=== PATIENT | female | born 1945 | race Caucasian/White ===

== ENCOUNTER 2019-09-15 14:30 | Outpatient (CLI) | payer MEDICARE, MEDICAID, SELFPAY | END 2019-09-15 14:31 | disposition home or self-care (01) | LOC: RT 03-27 15:13 | PROVIDERS: PCP Chiropractor Orthopedic; Visit Provider Internal Medicine Critical Care Medicine | DX: Z01.811 Encounter for preprocedural respiratory examination (principal); I25.10 Atherosclerotic heart disease of native coronary artery without angina pectoris | CPT/HCPCS: 80048; 81001; 85025; 85610; 86850; 86900; 94010; 94060; 94726; 94729 ==

== ENCOUNTER → 2019-09-20 07:00 | Day surgery (SDC) | payer MEDICARE, MEDICAID, SELFPAY ==
[2019-09-15 14:05] VITALS: BMI 34.3
--- NOTE | 2019-09-15 14:37 | ANES.PREANES ---
Pre-Anesthetic Assessment Pre-Anesthetic Assessment: Height/Weight: Height 1.63 m Weight 90.718 kg Preop Diagnosis: CAD Proposed Procedure: Operation Date: 09/20/19 07:00 Proposed Procedures p CABG(Not Applicable) - William Wilson MD Social: Social History: Tobacco and No alcohol Packs per day: 0.5 ppd Exam: Pre-Anes Outpt Exam: alert, oriented x 3, clear to auscultation bilaterally and regular rate & rhythm Airway: Cervical ROM: WNL MP: 3 Dentition: Chipped Additional comments: missing Pulmonary: Pulmonary: COPD CV/HEM: CV/HEM: HTN and VT Comments: EF 40%, NSTEMI : : None reported Hepatic: Hepatic: None reported Metabolic: Metabolic: Hyperlipidemia, Morbid obesity and Thyroid Musc/skel: Musc/skel: RA and None reported Neuropsych: Neuropsych: CVA (CVA 12 years ago ) Anesthetic Plan: ASA status: IV Anesthesia: General Risk of > 500 ml blood loss (7ml/kg in children): Yes, adequate IV access and fluids planned PFSH Anesthesia PFSH: Family History (Updated 09/06/19 @ 14:33 by Sarah Rojas LPN) Mother CAD (coronary artery disease) Hypertension Pulmonary embolism Social History (Updated 09/06/19 @ 14:34 by Sarah Rojas LPN) Smoking and tobacco status: current every day smoker Alcohol intake: never Data Anesthesia Cardiac Studies: No Data to Display
[2019-09-15 14:50] LABS: Basophils % 0.3 %; Eosinophils % 0.5 %; Hematocrit 42.7 % (37.0-47.0); Hemoglobin 13.4 g/dL (11.5-15.3); Lymphocytes # 0.8 10^3/uL (0.8-4.8); Lymphocytes % 9.7 %; Mean Corpuscular HGB Conc 31.4 g/dL (30.0-36.0); Mean Corpuscular Hemoglobin 29.3 pg (28.0-34.0); Mean Corpuscular Volume 93.4 fL (81-99); Mean Platelet Volume 10.7 fL (7.4-10.4); Monocytes # 0.2 10^3/uL (0.2-0.9); Monocytes % 2.8 %; Neutrophils # 6.9 10^3/uL (1.8-7.7); Neutrophils % 86.4 %; Nucleated Red Blood Cells % 0 %; Platelet Count 170 10^3/cmm (130-400); Red Blood Count 4.57 10^6/uL (4.1-5.3); Red Cell Distribution Width 14.2 % (12.1-15.1)
[2019-09-15 14:59] LABS: INR 0.97 (0.8-1.2)
[2019-09-15 15:02] LABS: Anion Gap 16.8 (5-19); Blood Urea Nitrogen 19 mg/dL (8-23); Calcium 9.4 mg/Dl (8.8-10.2); Carbon Dioxide 27 mmol/L (22-29); Chloride 96 mmol/L (98-107); Potassium 3.8 mmol/L (3.5-5.1); Sodium 136 mmol/L (136-145)
[2019-09-15 15:10] LABS: Glucose 527 mg/dL (74-106)
--- NOTE | 2019-09-15 15:49 | SUR.PREOP ---
CRITICAL GLUCOSE OF 527 CALLED TO THIS NURSE FROM THE LAB DURING PATIENT'S PRE-OP FOR CABG ON FRIDAY. DR. JIMÉNEZ NOTIFIED OF CRITICAL LAB AND HE STATED TO GET PATIENT AN APPOINTMENT TOMORROW IF POSSIBLE WITH HER PRIMARY CARE PHYSICIAN TO ADDRESS THE HIGH GLUCOSE AND SURGERY MAY BE DELAYED. THIS NURSE CALLED THE [facility] [address] AND IT WAS VERIFIED THAT PATIENT IS ESTABLISHED AT THAT CLINIC AND WAS SEEN LAST APRIL. PATIENT WAS SET UP WITH AN APPOINTMENT FOR 09/16/2019 AT 2:40 TO ADDRESS THE BLOOD SUGAR, WITH INSTRUCTIONS TO HAVE THE CLINIC FAX PHYSICIAN'S NOTES TO [facility], ATTN: AASHISH/DR. JIMÉNEZ. WRITEEN AND VERBAL INSTRUCTIONS REGARDING THIS WERE GIVEN TO HER DAUGHTER WHO VERBALIZED UNDERSTANDING. AASHISH IN [facility] WAS NOTIFIED OF THE LATEST AND TO BE EXPECTING FAXED RESULTS FROM [facility] TOMORROW.
[2019-09-15 16:01] LABS: Blood Urine 2+ (Negative); Glucose Urine UA 4+ (Normal); Ketones Urine Negative (Negative); Protein Urine Neg (Negative); Urine Appearance Clear (CLEAR); Urine Color Yellow (Yellow); pH Urine 5 (5-7)
[2019-09-15 16:02] LABS: Bilirubin Urine Neg (NEGATIVE); Leukocyte Esterase Urine Negative (Negative); Nitrate Urine Negative (Negative); Urobilinogen Urine Norm (Negative)
== END ==
PROVIDERS: PCP Chiropractor Orthopedic; Visit Provider Thoracic Surgery (Cardiothoracic Vascular Surgery)
DX: I25.10 Atherosclerotic heart disease of native coronary artery without angina pectoris (principal)
CPT/HCPCS: 36415; 80048; 81001; 85025; 85610; 86850; 86900; 94010; 94726; 94729

== ENCOUNTER 2019-10-15 22:12 | Inpatient (IN) | payer MEDICARE, MEDICAID, SELFPAY ==
[2019-10-15 22:13] VITALS: BP 124/78; PULSE 80; RESP 16; TEMP 36.7; O2SAT 97; BMI 34.8
--- NOTE | 2019-10-15 22:13 | ED_ITS ---
Entered by Malaika Hubbard, acting as scribe for HPI - Chest Pain General: Chief Complaint: Chest Pain Stated Complaint: CHEST PAIN Time Seen by Provider: 10/15/19 22:19 Source: patient and EMS Mode of arrival: EMS Limitations: no limitations History of Present Illness: HPI narrative: 73 yo f came to the er by [facility] for chest pain. Onset was today. Pt states that she is supposed to have a CABG soon. Pt states that she is really fatigued and the pain was between her shoulder blades. MD complaint: chest pain Timing of current episode: episodic Onset: during rest Pain location: substernal Severity: mild Associated symptoms: Reports dyspnea and palpitations; Deny abdominal pain, fever(s), nausea or vomiting Review of Systems General: Reports: other (negative unless marked) Const: Denies: fever or chills Eyes: Denies: change in vision or blurry vision ENMT: Denies: nose bleeds, post nasal drip or facial/sinus pain Card: Reports: chest pain, palpitations and edema; Denies: irregular heart rhythm, swelling of feet/ankles, shortness of breath on exertion or shortness of breath when lying down Resp: Reports: shortness of breath; Denies: productive cough or wheezing GI: Denies: abdominal pain, nausea or vomiting : Denies: painful urination or blood in urine Skin/Breast: Denies: rash, itching or redness Neuro: Denies: headache, dizziness or vertigo Psych: Reports: anxiety PFSH ED PFSH: Statuses (acute, chronic, etc) shown below reflect problem list status as previously entered and may not be historically accurate Medical History (Updated 10/16/19 @ 02:32 by Rajendra Will MD) Anxiety (Acute) COPD (chronic obstructive pulmonary disease) (Acute) Coronary artery arteriosclerosis (Acute) CVA (cerebral vascular accident) (Acute) Fracture of right lower extremity (Acute) Hypertension (Acute) Hypothyroid (Acute) Rheumatoid arthritis (Acute) Type 2 diabetes mellitus (Acute) Surgical History (Updated 10/16/19 @ 02:32 by Rajendra Will MD) H/O: hysterectomy (Acute) Family History Mother CAD (coronary artery disease) Hypertension Pulmonary embolism Social History (Updated 10/16/19 @ 02:32 by Rajendra Will MD) Smoking and tobacco status: current every day smoker Alcohol intake: never Substance/Drug Use: never Physical Exam Const: GENERAL APPEARANCE: well developed and anxious (mild) ORIENTATION/CONSCIOUSNESS: Yes oriented to person, Yes oriented to place and Yes oriented to time HENMT: COMMON NORMALS: head/scalp atraumatic and external nose normal HEAD & SCALP: atraumatic FACE & SINUS: normal facial exam NOSE: external nose normal Resp: EFFORT & INSPECTION: Yes audible wheezes Extremity: RIGHT LOWER EXTREMITY: Yes foot & digits (edema +1) LEFT LOWER EXTREMITY: Yes foot & digits Left foot and digits: Yes other (edema +1) Neuro: SENSORIUM/ORIENTATION: Yes oriented to person, Yes oriented to place and Yes oriented to time Course ED course: 73-year-old lady with triple-vessel disease. She has been awaiting better blood sugar control so that she can have her CABG. She experienced significant chest pain onset tonight. In the ambulance, 2 nitroglycerin sublingual tabs took her pain away. She is asymptomatic now. She has been normotensive. Her troponin, however, did elevate significantly at 2 hours. EKG did not change, there are no acute ST changes. Vital Signs: Vital signs: Vital Signs Temperature 98.1 F 10/15/19 22:13 Pulse Rate 72 10/16/19 02:24 Respiratory Rate 14 10/16/19 02:24 Blood Pressure 122/80 10/16/19 02:24 Pulse Oximetry 97 10/16/19 02:24 MDM - Chest Pain Lab Data: Labs: Lab Results 10/15/19 10/15/19 10/15/19 Range/Units 22:54 22:54 22:54 WBC 6.7 (4.0-10.0) 10^3/ uL RBC 4.06 L (4.1-5.3) 10^6/u L Hgb 11.7 (11.5-15.3) g/dL Hct 37.3 (37.0-47.0) % MCV 91.9 (81-99) fL MCH 28.8 (28.0-34.0) pg MCHC 31.4 (30.0-36.0) g/dL RDW 15.0 (12.1-15.1) % Plt Count 154 (130-400) 10^3/c mm MPV 9.6 (7.4-10.4) fL Neut % (Auto) 71.6 % Lymph % (Auto) 17.3 % Garland % (Auto) 6.0 % Eos % (Auto) 4.5 % Baso % (Auto) 0.3 % Neut # (Auto) 4.8 (1.8-7.7) 10^3/u L Lymph # (Auto) 1.2 (0.8-4.8) 10^3/u L Garland # (Auto) 0.4 (0.2-0.9) 10^3/u L Eos # (Auto) 0.3 (0.0-0.8) 10^3/u L Baso # (Auto) 0.0 (0.0-0.1) 10^3/u L Nucleated RBC % (a uto) 0 % Nucleated RBCs # 0.0 /100WBC PT (10.5-13.3) SECO NDS INR (0.8-1.2) APTT (23.9-36.7) SECO NDS Sodium 141 (136-145) mmol/L Potassium 3.7 (3.5-5.1) mmol/L Chloride 105 (98-107) mmol/L Carbon Dioxide 25 (22-29) mmol/L Anion Gap 14.7 (5-19) BUN 15 (8-23) mg/dL Creatinine 0.7 (0.5-0.9) mg/dL Glucose 197 H (65-115) mg/dL Calcium 9.2 (8.5-10.5) mg/dL Total Bilirubin 0.2 (0.15-1.2) mg/dL AST 14 (0-32) U/L ALT 14 (0-33) U/L Alkaline Phosphata se 88 (35-105) IU/L Creatine Kinase 72 (26-192) U/L Troponin T Baselin e 117 H* (0-10) ng/mL Troponin T 120 Min ewiiaapaayp (0-10) ng/mL Delta Troponin T (0-10) ABS# NT-Pro-B Natriuret Pep 5695 H (0-125) pg/mL Total Protein 5.5 L (6.6-8.7) g/dL Albumin 3.3 L (3.5-5.2) g/dL Globulin 2.2 (1.3-4.6) g/dL 10/15/19 10/16/19 Range/Units 22:54 00:50 WBC (4.0-10.0) 10^3/ uL RBC (4.1-5.3) 10^6/u L Hgb (11.5-15.3) g/dL Hct (37.0-47.0) % MCV (81-99) fL MCH (28.0-34.0) pg MCHC (30.0-36.0) g/dL RDW (12.1-15.1) % Plt Count (130-400) 10^3/c mm MPV (7.4-10.4) fL Neut % (Auto) % Lymph % (Auto) % Garland % (Auto) % Eos % (Auto) % Baso % (Auto) % Neut # (Auto) (1.8-7.7) 10^3/u L Lymph # (Auto) (0.8-4.8) 10^3/u L Garland # (Auto) (0.2-0.9) 10^3/u L Eos # (Auto) (0.0-0.8) 10^3/u L Baso # (Auto) (0.0-0.1) 10^3/u L Nucleated RBC % (a uto) % Nucleated RBCs # /100WBC PT 13.20 (10.5-13.3) SECO NDS INR 0.97 (0.8-1.2) APTT 27.6 (23.9-36.7) SECO NDS Sodium (136-145) mmol/L Potassium (3.5-5.1) mmol/L Chloride (98-107) mmol/L Carbon Dioxide (22-29) mmol/L Anion Gap (5-19) BUN (8-23) mg/dL Creatinine (0.5-0.9) mg/dL Glucose (65-115) mg/dL Calcium (8.5-10.5) mg/dL Total Bilirubin (0.15-1.2) mg/dL AST (0-32) U/L ALT (0-33) U/L Alkaline Phosphata se (35-105) IU/L Creatine Kinase (26-192) U/L Troponin T Baselin e (0-10) ng/mL Troponin T 120 Min ewiiaapaayp 151.80 H (0-10) ng/mL Delta Troponin T 34.80 H* (0-10) ABS# NT-Pro-B Natriuret Pep (0-125) pg/mL Total Protein (6.6-8.7) g/dL Albumin (3.5-5.2) g/dL Globulin (1.3-4.6) g/dL Discharge Plan Discharge Admit Provider: Rajendra Will Coding Level of Care Code ED Choirmaster for g Fwd The documentation recorded by the Stevie henderson Stephanie Lyn, accurately reflects the service I personally performed and the decisions made by Cipriano moffett Jeremy John, DO Oct 15, 2019 22:12
--- NOTE | 2019-10-15 22:23 | PC.NURSE ---
EKG done at 2221 and shown to ER doctor.
--- NOTE | 2019-10-15 22:28 | ECG_ITS ---
Measurements Intervals [place] Rate: 78 P: 54 SD: 135 QRS: 10 QRSD: 110 T: 115 QT: 402 QTc: 459 SINUS RHYTHM LOW QRS VOLTAGE IN PRECORDIAL LEADS [QRS DEFLECTION < 1.0 mV IN CHEST LEADS] INCOMPLETE RIGHT BUNDLE BRANCH BLOCK [90+ ms QRS DURATION, TERMINAL R IN V1/V2, 40+ ms S IN I/aVL/V4/V5/V6] SEPTAL MYOCARDIAL INFARCTION , OF INDETERMINATE AGE [40+ ms Q WAVE IN V1/V2] MODERATE T-WAVE ABNORMALITY, CONSIDER ANTEROLATERAL ISCHEMIA [-0.1+ mV T WAVE IN V3-V6] Compared to ECG 08/26/2019 06:04:05 Low QRS voltage now present Incomplete right bundle-branch block now present T-wave abnormality now present Possible ischemia now present Myocardial infarct finding still present Electronically Signed On 10-17-2019 0:16:22 WOMENS VOLLEYBALL COACH by Ismael Lugo M.D. [id number]
--- NOTE | 2019-10-15 22:28 | XR_ITS ---
WS: [id number] ONE VIEW CHEST HISTORY: 73 years old Female with cough/congestion AP upright chest comparison 08/26/2019 FINDINGS: Interstitial opacities in the lung bases mildly improved. No pneumothorax, pleural effusion, or inter david pulmonary parenchymal opacity. Heart size upper limits. Pulmonary vascular markings unremarkable. Tortuous thoracic aorta with atherosclerosis. No subdiaphragmatic free air. Well-visualized osseous structures intact. XR/XR chest 1V portable [id number] IMPRESSION: 1. Mild improved bibasilar edema and/or pneumonia. 2. No new, acute cardiopulmonary findings.
[2019-10-15 22:30] VITALS: BP 131/79; PULSE 85; RESP 16; O2SAT 93
--- NOTE | 2019-10-15 22:40 | ECG_ITS ---
Measurements Intervals [place] Rate: 76 P: 44 TX: 123 QRS: 24 QRSD: 110 T: 110 QT: 404 QTc: 454 SINUS RHYTHM WITH SINUS ARRHYTHMIA LOW QRS VOLTAGE IN PRECORDIAL LEADS [QRS DEFLECTION < 1.0 mV IN CHEST LEADS] INCOMPLETE RIGHT BUNDLE BRANCH BLOCK [90+ ms QRS DURATION, TERMINAL R IN V1/V2, 4 40+ ms S IN I/aVL/V4/V5/V6] SEPTAL MYOCARDIAL INFARCTION , OF INDETERMINATE AGE [40+ ms Q WAVE IN V1/V2] Compared to ECG 08/26/2019 06:04:05 Low QRS voltage now present Incomplete right bundle-branch block now present Myocardial infarct finding still present Electronically Signed On 10-17-2019 0:16:15 BRANCH LIBRARY CLERK by Ismael Lugo M.D. [id number]
[2019-10-15 23:04] LABS: Basophils % 0.3 %; Eosinophils # 0.3 10^3/uL (0.0-0.8); Eosinophils % 4.5 %; Hematocrit 37.3 % (37.0-47.0); Hemoglobin 11.7 g/dL (11.5-15.3); Lymphocytes # 1.2 10^3/uL (0.8-4.8); Lymphocytes % 17.3 %; Mean Corpuscular HGB Conc 31.4 g/dL (30.0-36.0); Mean Corpuscular Hemoglobin 28.8 pg (28.0-34.0); Mean Corpuscular Volume 91.9 fL (81-99); Mean Platelet Volume 9.6 fL (7.4-10.4); Monocytes # 0.4 10^3/uL (0.2-0.9); Neutrophils # 4.8 10^3/uL (1.8-7.7); Neutrophils % 71.6 %; Nucleated Red Blood Cells % 0 %; Platelet Count 154 10^3/cmm (130-400); Red Blood Count 4.06 10^6/uL (4.1-5.3); White Blood Count 6.7 10^3/uL (4.0-10.0)
[2019-10-15 23:15] LABS: INR 0.97 (0.8-1.2)
[2019-10-15 23:16] LABS: Partial Thromboplastin Time 27.6 SECONDS (23.9-36.7)
[2019-10-15 23:34] LABS: Alanine Aminotransferase 14 U/L (0-33); Albumin Level 3.3 g/dL (3.5-5.2); Alkaline Phosphatase 88 IU/L (35-105); Anion Gap 14.7 (5-19); Aspartate Amino Transferase 14 U/L (0-32); Blood Urea Nitrogen 15 mg/dL (8-23); Calcium 9.2 mg/dL (8.5-10.5); Carbon Dioxide 25 mmol/L (22-29); Chloride 105 mmol/L (98-107); Creatine Phosphokinase 72 U/L (26-192); Globulin 2.2 g/dL (1.3-4.6); Glucose 197 mg/dL (65-115); NT Pro B Type Natriuretic Pept 5695 pg/mL (0-125); Potassium 3.7 mmol/L (3.5-5.1); Sodium 141 mmol/L (136-145); Total Bilirubin 0.2 mg/dL (0.15-1.2); Total Protein 5.5 g/dL (6.6-8.7)
[2019-10-15] MEDS: FUROsemide 10 mg/mL SDV 4mL 40 MG IVP (23:42)
[2019-10-15 23:46] LABS: Troponin(5th) Baseline 117 ng/mL (0-10)
[2019-10-15 23:55] VITALS: BP 139/80; PULSE 78; RESP 14; O2SAT 92
[2019-10-16] VITALS (107 sets, daily range): BP systolic 108–156; BP diastolic 70–96; PULSE 61–85; RESP 9–27; TEMP 36.6–36.8; O2SAT 88–97
--- NOTE | 2019-10-16 00:15 | PC.NURSE ---
patient sleeping in room with lights off
--- NOTE | 2019-10-16 00:28 | ECG_ITS ---
Measurements Intervals [place] Rate: 71 P: 55 OK: 132 QRS: 28 QRSD: 119 T: 115 QT: 412 QTc: 449 SINUS RHYTHM LOW QRS VOLTAGE IN PRECORDIAL LEADS [QRS DEFLECTION < 1.0 mV IN CHEST LEADS] INCOMPLETE RIGHT BUNDLE BRANCH BLOCK [90+ ms QRS DURATION, TERMINAL R IN V1/V2, 40+ ms S IN I/aVL/V4/V5/V6] SEPTAL MYOCARDIAL INFARCTION , PROBABLY RECENT [40+ ms Q WAVE IN V1/V2] Compared to ECG 08/26/2019 06:04:05 Low QRS voltage now present Incomplete right bundle-branch block now present Myocardial infarct finding still present Electronically Signed On 10-17-2019 0:21:37 SSDS MK 2 ADVANCED OPERATOR by Ismael Lugo M.D. [id number]
--- NOTE | 2019-10-16 02:20 | PM.HP ---
Providers/Chief Complaint Primary Care Provider: Danielle Day Chief Complaint: CHEST PAIN History of Present Illness Aline Hoffmann is a 73 year old female with a past medical history of cid-lbagnot-[id number] type 2 diabetes mellitus, COPD not on oxygen, hyperlipidemia, hypertension, recent history of two-vessel CAD with depressed ejection fraction undergoing evaluation for CABG, ischemic cardiomyopathy with an ejection fraction of 40%, mild aortic valve stenosis, who presents to the emergency room due to complaints of chest pain and shortness of breath. Patient states that she is currently undergoing evaluation for CABG due to two-vessel CAD, according to patient Dr. Wilson wants patient's blood sugars to be within reasonable range before they proceed for surgical intervention. Patient states that yesterday she had an episode of substernal chest pain, describes it as a pressure-like, radiating to her back, associated lightheadedness, shortness of breath, no lightheadedness, no diaphoresis, lasted for a few minutes. Patient throughout the day felt short of breath, shortness of breath with exertion, has mild bilateral nonpitting edema. According to patient her primary care physician has cut down her Lasix from 60 mg once daily down to 20 mg once daily. Patient unfortunately continues to smoke, greater than [id number] history of smoking. Patient states that again this morning she had an episode of substernal chest pain associated with shortness of breath, received 2 nitro in the ambulance, aspirin her symptoms have resolved, currently he denies chest pain, denies shortness of breath. Review of Systems Const: Denies: fever, chills, fatigue or malaise Eyes: Denies: change in vision or blurry vision ENMT: Denies: nasal congestion Card: Reports: chest pain, lightheadedness and shortness of breath on exertion; Denies: palpitations, irregular heart rhythm or syncope Resp: Reports: shortness of breath; Denies: productive cough, non-productive cough or wheezing GI: Denies: abdominal pain, nausea, vomiting, vomiting blood, diarrhea, constipation, blood in stool or black tarry stool : Denies: flank pain, painful urination or urinary frequency Musc: Denies: neck pain or back pain Skin/Breast: Denies: rash Neuro: Denies: headache, dizziness or vertigo Psych: Denies: anxiety or depression Endo: Denies: excessive urination or excessive thirst Medications/Allergies Home Medications Medication Instructions Recorded Confirmed Last Taken Type albuterol sulfate 0.63 mg INHALATION Q6H 10/15/19 10/15/19 Unknown History alprazolam 0.25 mg PO BID 10/15/19 10/15/19 Unknown History atorvastatin 40 mg PO DAILY 10/15/19 10/15/19 Unknown History fluticasone propionate [Flovent 44 mcg INHALATION BID 10/15/19 10/15/19 Unknown History HFA] furosemide 60 mg PO DAILY 10/15/19 10/15/19 Unknown History glipizide 10 mg PO DAILY 10/15/19 10/15/19 Unknown History metformin 500 mg PO BID 10/15/19 10/15/19 Unknown History mupirocin 1 applic TOPICAL BID 10/15/19 10/15/19 Unknown History Allergies Allergy/AdvReac Type Severity Reaction Status Date / Time azithromycin Allergy Severe ADR-Hyperte Verified 09/15/19 13:54 nsion codeine Allergy Unknown ADR-Vomitin Verified 09/15/19 13:54 g Additional Medication Information Additional Medication Information: Levothyroxine 150 mcg once daily Atorvastatin 40 mg once daily Flovent Clonidine 0.1 mg as needed if blood pressure greater than 185/95 Coreg 3.125 twice daily Imdur 15 mg every day Losartan 25 mg once daily Lasix 20 to 60 mg once daily? Patient unsure of the dosing Metformin 500 2 times daily Albuterol Glipizide 10 mg daily Alprazolam 0.25 mg twice daily Aspirin 81 mg 2 tablets by mouth daily PFSH Acute PFSH: Statuses (acute, chronic, etc) shown below reflect problem list status as previously entered and may not be historically accurate Medical History (Updated 10/16/19 @ 02:32 by Rajendra Will MD) Anxiety (Acute) COPD (chronic obstructive pulmonary disease) (Acute) Coronary artery arteriosclerosis (Acute) CVA (cerebral vascular accident) (Acute) Fracture of right lower extremity (Acute) Hypertension (Acute) Hypothyroid (Acute) Rheumatoid arthritis (Acute) Type 2 diabetes mellitus (Acute) Surgical History (Updated 10/16/19 @ 02:32 by Rajendra Will MD) H/O: hysterectomy (Acute) Family History Mother CAD (coronary artery disease) Hypertension Pulmonary embolism Social History (Updated 10/16/19 @ 02:32 by Rajendra Will MD) Smoking and tobacco status: current every day smoker Alcohol intake: never Substance/Drug Use: never Vitals/I&O/Wt Last Vital Signs Temp 98.1 F 10/15/19 22:13 Pulse 74 10/16/19 00:51 Resp 16 10/16/19 00:51 BP 148/92 10/16/19 00:51 Pulse Ox 97 10/16/19 00:51 Weight last 48 hrs Weight 92.079 kg Physical Exam Const: COMMON NORMALS: no apparent distress and oriented x3 GENERAL APPEARANCE: cooperative and comfortable HENMT: COMMON NORMALS: normocephalic HEAD & SCALP: normocephalic Eye: COMMON NORMALS: PERRL, EOMs intact bilaterally and no papilledema GENERAL EYE: normal appearance of both eyes PUPIL: Yes PERRL DIRECT OPHTHALMOSCOPY: Yes no papilledema Neck/C-Spine: COMMON NORMALS: full ROM, no lymphadenopathy, no JVD and thyroid normal THYROID: thyroid normal Lymph: LYMPHATIC: no lymphadenopathy noted Resp: COMMON NORMALS: normal respiratory effort, no retractions, no use of accessory muscles and clear to auscultation bilaterally AUSCULTATION: clear to auscultation bilaterally Cardio: COMMON NORMALS: no JVD, regular rate, regular rhythm, S1 normal heart sound, S2 normal heart sound, no gallops, no clicks and no murmurs RATE: regular rate RHYTHM: regular rhythm HEART SOUNDS: S1 normal and S2 normal GI: COMMON NORMALS: normal to inspection, nondistended, normoactive bowel sounds, soft to palpation, non-tender and no hepatosplenomegaly PALPATION: Yes soft and Yes no hepatosplenomegaly Extremity: COMMON NORMALS: normal to inspection and full ROM NARRATIVE EXTREMITY EXAM: 1+ pitting edema Neuro: COMMON NORMALS: oriented x3, CN's II-XII intact bilaterally, moves all extremities and no focal motor deficits Psych: COMMON NORMALS: mental status grossly normal, thought process normal and cooperative THOUGHT PROCESS: normal thought process Data : 10/15/19 22:54 10/15/19 22:54 A&P Assessment and plan (1) NSTEMI (non-ST elevated myocardial infarction): -3 episodes of chest pain so far in the last 24 hours -Last episode of chest pain aborted with 2 nitro, currently no chest pain -Baseline troponin I 117, 120-minute 151.80, delta troponin 34.8 -Baseline troponin on last admission was 610.8 on 08/26/2019 -Currently EKG have does have chronic T wave inversions 1, aVL, new T wave inversion V1 and V2, incomplete RBBB -Has a history of two-vessel CAD, cath in 08/27/2019 showed total occlusion of the circumflex artery with 85% long severe mid LAD stenosis, 70% diagonal stenosis, RCA had noncritical disease, ejection fraction was reduced to 40% -Patient has had saphenous vein mapping, has seen Dr. Wilson for CABG evaluation, plans are for better blood sugar control before surgical intervention Plan: -Admit to CSU for ACS -Aspirin, statin, Coreg, therapeutic Lovenox -Telemetry monitoring -Monitor for chest pain -Monitor troponins, serial EKGs -We will call cardiology and Dr. Wilson this morning Status: Acute Code(s): I21.4 - Non-ST elevation (NSTEMI) myocardial infarction (2) Ischemic cardiomyopathy: -Echocardiogram on 08/26/2019 showed apex is akinetic as is the mid anterior wall and apical septum, lateral wall is mildly hypokinetic, inferior posterior gilman contract normally, ejection fraction 40%, grade 1 diastolic dysfunction, mild aortic stenosis mean gradient 5.8, aortic valve area 1.8 cm? -Patient chest x-ray shows pulmonary vascular congestion, has 1+ pitting edema, BNP is 5695, on last admission a month ago it was 5804 -Patient is having some degree of CHF exacerbation, some of some of patient's troponin elevation is a component of supply demand ischemia Plan: -Strict I's and O's, daily weights, fluid restrictions -Lasix 40 mg IV twice daily Status: Acute Code(s): I25.5 - Ischemic cardiomyopathy (3) Type 2 diabetes mellitus: -Patient's hemoglobin A1c 6.5 -I reviewed patient's blood sugar logs, in the beginning of August her blood sugars were in the 500s -However in the last 2 weeks, her blood sugars look great, between 100s to 200s -Patient's checking blood sugars 2-3 times daily -She is trying to be compliant with diet regimen -He is on glipizide and metformin -Would recommend a GLP-1 analog through her primary care Plan: -Low-dose sliding scale Status: Acute Code(s): E11.9 - Type 2 diabetes mellitus without complications (4) COPD (chronic obstructive pulmonary disease): -Has a history of COPD -Unfortunately has a greater than 12-fumx-rvls history of smoking, and continues to smoke -Chest x-ray shows chronic emphysema -Ipratropium as needed, Advair Status: Acute Code(s): J44.9 - Chronic obstructive pulmonary disease, unspecified (5) CAD (coronary artery disease), jamul coronary artery: Status: Acute Code(s): I25.10 - Atherosclerotic heart disease of jamul coronary artery without angina pectoris (6) Anxiety: Status: Acute Code(s): F41.9 - Anxiety disorder, unspecified Attestations Medical Necessity Statement*: Patient requires hospitalization, inpatient, greater than 2 midnights, for NSTEMI and CHF exacerbation Coding Level of Care Code Acute Supervisor Detasseling Crew for [facility] Diagnoses NSTEMI (non-ST elevated myocardial infarction) I21.4 Ischemic cardiomyopathy I25.5 Type 2 diabetes mellitus E11.9 COPD (chronic obstructive pulmonary disease) J44.9 CAD (coronary artery disease), jamul coronary artery I25.10 Anxiety F41.9
[2019-10-16] MEDS: enoxaparin 100 mg/mL Syringe SUBCUT (02:25)
--- NOTE | 2019-10-16 02:29 | PC.NURSE ---
BG 121, FINGERSTICK CHECKED BY TECH
[2019-10-16 02:31] LABS: Glucose Point of Care 121 mg/dL (70-110)
--- NOTE | 2019-10-16 03:40 | PC.NURSE ---
CALLED ICU TO GIVE REPORT, ICU SAID THEY WOULD CALL ME BACK TO GET REPORT
--- NOTE | 2019-10-16 04:28 | ECG_ITS ---
Measurements Intervals [place] Rate: 75 P: 53 OR: 138 QRS: 26 QRSD: 115 T: 108 QT: 408 QTc: 456 SINUS RHYTHM INCOMPLETE RIGHT BUNDLE BRANCH BLOCK [90+ ms QRS DURATION, TERMINAL R IN V1/V2, 40+ ms S IN I/aVL/V4/V5/V6] SEPTAL MYOCARDIAL INFARCTION , OF INDETERMINATE AGE [40+ ms Q WAVE IN V1/V2] Compared to ECG 08/26/2019 06:04:05 Incomplete right bundle-branch block now present Myocardial infarct finding still present Electronically Signed On 10-17-2019 0:21:26 FULL STACK PHP DEVELOPER by Ismael Lugo M.D. [id number]
--- NOTE | 2019-10-16 04:30 | PC.NURSE ---
EKG done at 0428 and shown to ER doctor
[2019-10-16] MEDS: aspirin 325 mg Tablet PO ×2 (05:47→09:00)
[2019-10-16] MEDS: levothyroxine 150 mcg Tablet PO (05:48)
[2019-10-16] MEDS: isosorbide mononitrate ER 30 mg Tablet 15 MG PO (05:48)
[2019-10-16 07:46] LABS: Glucose Point of Care 131 mg/dL (70-110)
[2019-10-16] MEDS: ALPRAZolam 0.25 mg Tablet PO ×2 (08:59→17:23)
[2019-10-16] MEDS: carvedilol 3.125 mg Tablet PO ×2 (09:00→17:23)
[2019-10-16] MEDS: losartan 50 mg Tablet 25 MG PO (09:00)
[2019-10-16] MEDS: atorvastatin 40 mg Tablet PO (09:00)
--- NOTE | 2019-10-16 09:48 | PM.PN ---
Subjective Subjective: Interval history: Patient well known to me, chart reviewed. Patient seen and examined, resting in bed, currently chest pain-free, vital signs stable. Reports that she had difficulty getting clearance from her primary care provider for her scheduled CABG. Would still like to proceed with this as previously planned. Medications: Reviewed: Yes Medication Review Details: Current Medications Generic Name Dose Route Start Last Admin Trade Name Grayq PRN Reason Stop Dose Admin Alprazolam 0.25 mg 10/16/19 09:00 10/16/19 08:59 Xanax PO 0.25 mg BID RUSLAN Administration Aspirin 325 mg 10/16/19 04:28 10/16/19 09:00 Aspirin PO 325 mg DAILY RUSLAN Administration Atorvastatin Calci um 40 mg 10/16/19 09:00 10/16/19 09:00 Lipitor PO 40 mg DAILY RUSLAN Administration Carvedilol 3.125 mg 10/16/19 09:00 10/16/19 09:00 Coreg PO 3.125 mg BID RUSLAN Administration Insulin Aspart 0 unit 10/16/19 08:00 10/16/19 07:50 Novolog SUBCUT Not Given TIDWM [facility] Protocol Isosorbide Mononit rate 15 mg 10/16/19 06:00 10/16/19 05:48 Imdur PO 15 mg QAM RUSLAN Administration Losartan Potassium 25 mg 10/16/19 09:00 10/16/19 09:00 Cozaar PO 25 mg DAILY RUSLAN Administration Non-Formulary Medi cation 0.63 mg 10/16/19 04:28 10/16/19 05:49 Albuterol Sulfat e INHALATION Not Given Q6H [facility] Fluticasone/Salmet yessi 1 puff 10/16/19 09:00 10/16/19 08:08 Advair Diskus 25 0-50 INHALATION 250 diskus BID RUSLAN Administration Vitals/I&O/Wt Last Vital Signs Temp 97.8 F 10/16/19 04:28 Pulse 78 10/16/19 08:13 Resp 16 10/16/19 08:11 BP 120/80 10/16/19 09:00 Pulse Ox 95 10/16/19 08:11 10/15/19 10/16/19 10/16/19 22:59 06:59 14:59 Output Total 300 / 300 Balance -300 / -300 Weight last 48 hrs Weight 92.079 kg Physical Exam Const: COMMON NORMALS: no apparent distress and oriented x3 GENERAL APPEARANCE: cooperative and comfortable NUTRITIONAL APPEARANCE: obese centrally obese ORIENTATION/CONSCIOUSNESS: Yes awake HENMT: COMMON NORMALS: normocephalic, head/scalp atraumatic, hearing grossly normal bilaterally and moist oral mucous membranes HEAD & SCALP: normocephalic and atraumatic Eye: COMMON NORMALS: PERRL, EOMs intact bilaterally and conjunctivae normal CONJUNCTIVA: Yes conjunctivae normal PUPIL: Yes PERRL Neck/C-Spine: COMMON NORMALS: full ROM GENERAL: Yes normal visual inspection and Yes trachea midline Resp: COMMON NORMALS: normal respiratory effort, no retractions, no use of accessory muscles and clear to auscultation bilaterally EFFORT & INSPECTION: Yes able to speak in complete sentences, Yes symmetric chest movement and No tachypneic AUSCULTATION: clear to auscultation bilaterally Cardio: COMMON NORMALS: regular rate, regular rhythm, S1 normal heart sound, S2 normal heart sound and no murmurs RATE: regular rate RHYTHM: regular rhythm HEART SOUNDS: S1 normal and S2 normal GI: COMMON NORMALS: normal to inspection, nondistended, normoactive bowel sounds, soft to palpation and non-tender PALPATION: Yes soft Extremity: COMMON NORMALS: normal to inspection, full ROM and no clubbing, cyanosis or edema; negative for no pedal edema Neuro: COMMON NORMALS: oriented x3, moves all extremities, no focal motor deficits and no sensory deficits noted Psych: COMMON NORMALS: mental status grossly normal, thought process normal, cooperative, affect normal and speech normal SPEECH: Yes normal speech THOUGHT PROCESS: normal thought process Skin: COMMON NORMALS: no rashes or lesions noted, no jaundice, no petechiae and no mottling GENERAL SKIN EXAM: no rashes or lesions noted Data : 10/15/19 22:54 10/15/19 22:54 A&P Assessment and plan (1) NSTEMI (non-ST elevated myocardial infarction): -likely demand ischemia secondary to acute CHF exacerbation -presented with c/o chest pressure; alleviated with NTG -troponins with positive delta change of 34 over 6 hrs -management of CHF as noted below -KHLOE -on therapeutic Lovenox -continue BB, ASA, statin -recent cath showing multivessel CAD; CABG recommended, has been following up with Dr. Wilson -may need to discuss case with cardiology/Dr. Wilson Status: Acute Code(s): I21.4 - Non-ST elevation (NSTEMI) myocardial infarction (2) Combined systolic and diastolic congestive heart failure: -Echo (08/2019): EF=40%, G1DD, +RWMA, trace TR, mild -continue IV diuresis with Lasix; titrate as needed for optimal response. -imaging noted -[id number] -continue to monitor urine output -supplemental oxygen as needed; continue to monitor respiratory status -VSS; continue to monitor -daily weights, monitor Is & Os -telemetry monitoring -EMILY hose -replace lytes as needed Status: Acute Qualifiers: Heart failure chronicity: acute on chronic Qualified Code(s): I50.43 - Acute on chronic combined systolic (congestive) and diastolic (congestive) heart failure Code(s): I50.40 - Unspecified combined systolic (congestive) and diastolic (congestive) heart failure (3) CAD (coronary artery disease), [place] coronary artery: -has known hx of multivessel CAD pending CABG Status: Acute Qualifiers: Associated angina: with stable angina [place] vs. transplanted heart: [place] heart Qualified Code(s): I25.118 - Atherosclerotic heart disease of [place] coronary artery with other forms of angina pectoris Code(s): I25.10 - Atherosclerotic heart disease of [place] coronary artery without angina pectoris (4) Ischemic cardiomyopathy: -as noted above Status: Acute Code(s): I25.5 - Ischemic cardiomyopathy Additional A&P Information -Morbid obesity: BMI-35 kg/m2 -HTN; continue oral antihypertensives -reported hx of RA -Chronic smoker; recently had PFTs done in preparation for surgery -Hypothyroidism -hx of CVA -Chronic LE edema -NIDDM type II; last A1c-6.5; improved blood glucose control in anticipation of CABG. Continue accuchecks, ISS -Neb treatments as needed -no need for DVT ppx as on therapeutic Lovenox -fall precautions -Dispo: home -Code status: FULL code Attestations Medical Necessity Statement*: Patient requires hospitalization for continued management of acute CHF exacerbation, NSTEMI. Time Spent in Patient Care: Greater than 35 minutes (>than 50% of time spent in counselling and/or direct pt care on unit). 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 transplanted heart: [place] heart Ischemic cardiomyopathy I25.5
[2019-10-16 11:04] LABS: Glucose Point of Care 165 mg/dL (70-110)
--- NOTE | 2019-10-16 11:15 | PC.CHAP ---
Pastoral Care Encounter/Spiritual Assessment Type of Contact [] Declined program technician visit [] Patient/Family/Request visit [] Outpatient visit [] Follow-up visit [] Physician referral [] Code/Alert [] Routine visit [] Staff referral [] Actively dying [x] Patient sleeping [] Family support [] [] Out of room [] Palliative care [] [] Receiving care in room [] Pre-surgical visit [] Trauma [] Long length of stay [] ICU visit [] Other: Relational/Emotional Strength [] Patient feels connected with others/family/visitors/staff [] Distress [] Loneliness/isolation [] Abandonment Spirituality of Patient [] Person of Dee [] Attends Rastafarian of their Dee [] Believes in Prayer [] Reads Bible or Scientology materials [] There are Spiritual issues to be addressed [employer] Worker Interventions [] Prayer [] Active listening [] Non-anxious presence [] Spiritual/emotional support [] Crisis/trauma care [] Spiritual counseling [] Bereavement support [] Provided bereavement packet [] Provided Bible/devotional materials [] Provided toy/stuffed animal, coloring book to patient or family member [] Provided Communion [] Anointing/[place] [] Salvation [] Completed spiritual assessment [] Other: Impact on Illness or Injury [] Angry [] Fearful [] Anxious [] Often cries [] Exhaustion [] Unable to work [] Unable to attend confucianist [] Unable to walk/stand [] Unable to read [] Unable to drive [] Unable to eat/drink [] Unable to sleep [] Unable to be with family [] Patient intubated [] Other: Summary Follow up Time spent with patient
[2019-10-16] MEDS: FUROsemide 10 mg/mL SDV 4mL 40 MG IVP ×2 (11:23→17:23)
[2019-10-16] MEDS: enoxaparin 100 mg/mL Syringe 90 MG SUBCUT (16:33)
[2019-10-16 17:09] LABS: Glucose Point of Care 105 mg/dL (70-110)
--- NOTE | 2019-10-16 22:58 | P.CONIM_ITS ---
Providers/Reason For Consult Consulting Physican/Specialty*: Cardiology Reason for Consult*: Non-ST elevation [place] Heart failure Attending Physician: Elba Chavez MD Primary Care Provider: Danielle Day History of Present Illness History of Present Illness Aline Hoffmann is a 73 year old female Past medical history significant for history of continues tobacco abuse, ischemic cardiomyopathy, diabetes mellitus non-ST elevation [place] in August of last year when she underwent left heart catheterization. She was found to have multivessel coronary artery disease including proximal to mid bifurcating LAD and long Calcified circumflex lesion was referred for coronary artery bypass surgery. She saw Dr. Wilson in the clinic and was going through the Process for bypass until yesterday when she was admitted with worsening of chest pressure going on for last 24 hours. Twelve- lead EKG did not show any significant change from the baseline. Troponin was suggestive of non-ST elevation UT. Currently she is chest pain-free. She has been admitted to ICU for monitoring and treatment. Review of Systems Const: Denies: fever, chills, fatigue or malaise Eyes: Denies: change in vision or blurry vision ENMT: Denies: nasal congestion, nose bleeds, post nasal drip or facial/sinus pain Card: Reports: chest pain, palpitations, edema and lightheadedness; Denies: irregular heart rhythm, swelling of feet/ankles, syncope, shortness of breath on exertion or shortness of breath when lying down Resp: Reports: shortness of breath; Denies: productive cough, non-productive cough or wheezing GI: Denies: abdominal pain, nausea, vomiting, vomiting blood, diarrhea, c onstipation, blood in stool or black tarry stool : Denies: flank pain, painful urination, urinary frequency or blood in urine Musc: Denies: neck pain or back pain Skin/Breast: Denies: rash, itching or redness Neuro: Denies: headache, dizziness or vertigo Psych: Reports: anxiety; Denies: depression Endo: Denies: excessive urination or excessive thirst Meds/Allergies Home Medications and Allergies Home Medications Medication Instructions Recorded Confirmed Type carvedilol 3.125 mg tablet 3.125 mg PO BID 09/06/19 10/15/19 History ibuprofen 200 mg capsule 200 mg PO Q12H PRN cap 09/06/19 10/15/19 History isosorbide mononitrate 30 mg 30 mg PO QAM 09/06/19 10/15/19 History tablet,extended release 24 hr levothyroxine 150 mcg capsule 150 mcg PO ONCE 09/06/19 10/15/19 History losartan 50 mg tablet 50 mg PO BID 09/06/19 10/15/19 History aspirin 325 mg tablet 163 mg PO ONCE tab 09/09/19 10/15/19 History albuterol sulfate 0.63 mg INHALATION Q6H 10/15/19 10/15/19 History alprazolam 0.25 mg PO BID 10/15/19 10/15/19 History atorvastatin 40 mg PO DAILY 10/15/19 10/15/19 History fluticasone propionate [Flovent 44 mcg INHALATION BID 10/15/19 10/15/19 History HFA] furosemide 60 mg PO DAILY 10/15/19 10/15/19 History glipizide 10 mg PO DAILY 10/15/19 10/15/19 History metformin 500 mg PO BID 10/15/19 10/15/19 History mupirocin 1 applic TOPICAL BID 10/15/19 10/15/19 History Allergies Allergy/AdvReac Type Severity Reaction Status Date / Time azithromycin Allergy Severe ADR-Hyperte Verified 09/15/19 13:54 nsion codeine Allergy Unknown ADR-Vomitin Verified 09/15/19 13:54 g Current Medications Current Medications Generic Name Dose Route Start Last Admin Trade Name Freq PRN Reason Stop Dose Admin Alprazolam 0.25 mg 10/16/19 09:00 10/16/19 17:23 Xanax PO 0.25 mg BID RUSLAN Administration Aspirin 325 mg 10/16/19 04:28 10/16/19 09:00 Aspirin PO 325 mg DAILY RUSLAN Administration Atorvastatin Calcium 40 mg 10/16/19 09:00 10/16/19 09:00 Lipitor PO 40 mg DAILY RUSLAN Administration Carvedilol 3.125 mg 10/16/19 09:00 10/16/19 17:23 Coreg PO 3.125 mg BID RUSLAN Administration Enoxaparin Sodium 90 mg 10/16/19 14:30 10/16/19 16:33 Lovenox 1 mg/kg (90 mg) 90 mg SUBCUT Administration Q12H RUSLAN Furosemide 40 mg 10/16/19 11:00 10/16/19 17:23 Lasix IVP 40 mg BID RUSLAN Administration Insulin Aspart 0 unit 10/16/19 08:00 10/16/19 17:17 Novolog SUBCUT Not Given TIDWM [facility] Protocol Isosorbide Mononitrate 15 mg 10/16/19 06:00 10/16/19 05:48 Imdur PO 15 mg QAM RUSLAN Administration Losartan Potassium 25 mg 10/16/19 09:00 10/16/19 09:00 Cozaar PO 25 mg DAILY RUSLAN Administration Non-Formulary Medication 0.63 mg 10/16/19 04:28 10/16/19 16:55 Albuterol Sulfate INHALATION Not Given Q6H RUSLAN Fluticasone/Salmeterol 1 puff 10/16/19 09:00 10/16/19 20:08 Advair Diskus 250-50 INHALATION 1 diskus BID RUSLAN Administration Additional Medication Information Current Medications Generic Name Dose Route Start Last Admin Trade Name Freq PRN Reason Stop Dose Admin Alprazolam 0.25 mg 10/16/19 09:00 10/16/19 08:59 Xanax PO 0.25 mg BID RUSLAN Administration Aspirin 325 mg 10/16/19 04:28 10/16/19 09:00 Aspirin PO 325 mg DAILY RUSLAN Administration Atorvastatin Calcium 40 mg 10/16/19 09:00 10/16/19 09:00 Lipitor PO 40 mg DAILY RUSLAN Administration Carvedilol 3.125 mg 10/16/19 09:00 10/16/19 09:00 Coreg PO 3.125 mg BID RUSLAN Administration Insulin Aspart 0 unit 10/16/19 08:00 10/16/19 07:50 Novolog SUBCUT Not Given TIDWM [facility] Protocol Isosorbide Mononitrate 15 mg 10/16/19 06:00 10/16/19 05:48 Imdur PO 15 mg QAM RUSLAN Administration Losartan Potassium 25 mg 10/16/19 09:00 10/16/19 09:00 Cozaar PO 25 mg DAILY RUSLAN Administration Non-Formulary Medication 0.63 mg 10/16/19 04:28 10/16/19 05:49 Albuterol Sulfate INHALATION Not Given Q6H RUSLAN Fluticasone/Salmeterol 1 puff 10/16/19 09:00 10/16/19 08:08 Advair Diskus 250-50 INHALATION 250 diskus BID RUSLAN Administration PFSH Acute PFSH: Statuses (acute, chronic, etc) shown below reflect problem list status as previously entered and may not be historically accurate Medical History Anxiety (Acute) COPD (chronic obstructive pulmonary disease) (Acute) Coronary artery arteriosclerosis (Acute) CVA (cerebral vascular accident) (Acute) Fracture of right lower extremity (Acute) Hypertension (Acute) Hypothyroid (Acute) Rheumatoid arthritis (Acute) Type 2 diabetes mellitus (Acute) Surgical History H/O: hysterectomy (Acute) Family History Mother CAD (coronary artery disease) Hypertension Pulmonary embolism Social History Smoking and tobacco status: current every day smoker Alcohol intake: never Substance/Drug Use: never Vitals/I&O/Wt Last Vital Signs Temp 98.2 F 10/16/19 15:00 Pulse 72 10/16/19 22:10 Resp 16 10/16/19 22:10 BP 136/85 10/16/19 22:10 Pulse Ox 93 10/16/19 22:10 10/16/19 10/16/19 10/16/19 06:59 14:59 22:59 Intake Total 540 / 540 660 / 1200 Output Total 300 / 300 1755 / 1755 Balance -300 / -300 540 / 540 -1095 / -555 Weight last 48 hrs Weight 203 lb Physical Exam Narrative: EXAM NARRATIVE: GENERAL: Patient is alert, awake and oriented x3. NECK: No jugular vein distension. HEENT: No cyanosis. No icterus. No pallor. HEART: Regular S1 and S2. No murmur, rub or gallop. LUNGS: Clear to auscultate bilaterally. ABDOMEN: Soft, nontender and nondistended. Positive bowel sounds. No guarding, rebound or tenderness. CENTRAL NERVOUS SYSTEM: Grossly nonfocal. EXTREMITIES: Lower extremities without edema bilaterally. A&P Assessment and plan (1) Combined systolic and diastolic congestive heart failure: Not well compensated. Continue IV diuresis Status: Acute Qualifiers: Heart failure chronicity: acute on chronic Qualified Code(s): I50.43 - Acute on chronic combined systolic (congestive) and diastolic (congestive) heart failure Code(s): I50.40 - Unspecified combined systolic (congestive) and diastolic (congestive) heart failure (2) Ischemic cardiomyopathy: Patient was admitted with non-ST elevation [place]. She is chest pain-free. She has multivessel coronary disease requiring bypass surgery. Dr. Wilson has been consulted who will Further advice Continue anticoagulation beta liat ARB and aspirin. Status: Acute Code(s): I25.5 - Ischemic cardiomyopathy (3) COPD (chronic obstructive pulmonary disease): As per medicine Status: Acute Code(s): J44.9 - Chronic obstructive pulmonary disease, unspecified (4) NSTEMI (non-ST elevated myocardial infarction): Patient is chest pain-free. Continue beta liat aspirin statin and anticoagulation. Hold on to Plavix for now. Status: Acute Code(s): I21.4 - Non-ST elevation (NSTEMI) myocardial infarction (5) Type 2 diabetes mellitus: As per medicine Status: Acute Code(s): E11.9 - Type 2 diabetes mellitus without complications (6) Hypertension: We will optimize medicine to control hypertension. Status: Acute Code(s): I10 - Essential (primary) hypertension Coding Level of Care Code New Pt Acute Cartography Teacher for [facility] Fwd Patient Type New History Expanded Problem Focused Exam Expanded Problem Focused Medical Decision Making Moderate Complexity Diagnoses Combined systolic and diastolic congestive heart failure I50.43 Heart failure chronicity: acute on chronic Ischemic cardiomyopathy I25.5 COPD (chronic obstructive pulmonary disease) J44.9 NSTEMI (non-ST elevated myocardial infarction) I21.4 Type 2 diabetes mellitus E11.9 Hypertension I10
[2019-10-17] VITALS (86 sets, daily range): BP systolic 99–188; BP diastolic 51–99; PULSE 51–85; RESP 8–24; TEMP 36.4–36.9; O2SAT 88–96
[2019-10-17] MEDS: enoxaparin 100 mg/mL Syringe 90 MG SUBCUT ×2 (02:53→15:59)
[2019-10-17 04:24] LABS: Basophils % 0.3 %; Eosinophils # 0.3 10^3/uL (0.0-0.8); Eosinophils % 4.7 %; Hematocrit 40.8 % (37.0-47.0); Hemoglobin 12.8 g/dL (11.5-15.3); Lymphocytes # 1.6 10^3/uL (0.8-4.8); Lymphocytes % 26.7 %; Mean Corpuscular HGB Conc 31.4 g/dL (30.0-36.0); Mean Corpuscular Hemoglobin 28.8 pg (28.0-34.0); Mean Corpuscular Volume 91.9 fL (81-99); Mean Platelet Volume 10.2 fL (7.4-10.4); Monocytes # 0.5 10^3/uL (0.2-0.9); Monocytes % 8.8 %; Neutrophils # 3.6 10^3/uL (1.8-7.7); Neutrophils % 59.2 %; Nucleated Red Blood Cells % 0 %; Platelet Count 155 10^3/cmm (130-400); Red Blood Count 4.44 10^6/uL (4.1-5.3); White Blood Count 6.1 10^3/uL (4.0-10.0)
[2019-10-17 04:43] LABS: Alanine Aminotransferase 14 U/L (0-33); Albumin Level 3.3 g/dL (3.5-5.2); Alkaline Phosphatase 93 IU/L (35-105); Anion Gap 15.4 (5-19); Aspartate Amino Transferase 15 U/L (0-32); Blood Urea Nitrogen 14 mg/dL (8-23); Calcium 9.3 mg/dL (8.5-10.5); Carbon Dioxide 28 mmol/L (22-29); Chloride 102 mmol/L (98-107); Globulin 2.7 g/dL (1.3-4.6); Glucose 138 mg/dL (65-115); Magnesium 2.1 mg/dL (1.7-2.3); Phosphorus 4.2 mg/dL (2.5-4.5); Potassium 3.4 mmol/L (3.5-5.1); Sodium 142 mmol/L (136-145); Total Bilirubin 0.4 mg/dL (0.15-1.2)
[2019-10-17 04:45] LABS: Chol HDL Ratio 3.84 mg/dL (0.0-4.40); Cholesterol 146 mg/dL (0-200); HDL Cholesterol 38 mg/dL (60-100); LDL Cholesterol Calculated 75 mg/dL (50-129); LDL HDL Ratio 1.97 RATIO (0.00-3.22); Triglycerides 167 mg/dL (0-150)
[2019-10-17 08:28] LABS: Glucose Point of Care 125 mg/dL (70-110)
--- NOTE | 2019-10-17 10:08 | PM.PN ---
Subjective Subjective: Interval history: AM labs noted, had 1355 mL urine output overnight. Patient seen and examined, no acute overnight events reported, no significant changes overall. Case discussed with Dr. Lugo and appreciate Dr. Wilson's consult. Plan is for CABG on Friday 10/20. Medications: Reviewed: Yes Medication Review Details: Current Medications Generic Name Dose Route Start Last Admin Trade Name Freq PRN Reason Stop Dose Admin Alprazolam 0.25 mg 10/16/19 09:00 10/16/19 17:23 Xanax PO 0.25 mg BID RUSLAN Administration Aspirin 325 mg 10/16/19 04:28 10/16/19 09:00 Aspirin PO 325 mg DAILY RUSLAN Administration Atorvastatin Calci um 40 mg 10/16/19 09:00 10/16/19 09:00 Lipitor PO 40 mg DAILY RUSLAN Administration Carvedilol 3.125 mg 10/16/19 09:00 10/16/19 17:23 Coreg PO 3.125 mg BID RUSLAN Administration Enoxaparin Sodium 90 mg 10/16/19 14:30 10/17/19 02:53 Lovenox 1 mg/kg (90 mg) 90 mg SUBCUT Administration Q12H [facility] Furosemide 40 mg 10/16/19 11:00 10/16/19 17:23 Lasix IVP 40 mg BID RUSLAN Administration Insulin Aspart 0 unit 10/16/19 08:00 10/17/19 08:27 Novolog SUBCUT Not Given TIDWM [facility] Protocol Losartan Potassium 25 mg 10/16/19 09:00 10/16/19 09:00 Cozaar PO 25 mg DAILY RUSLAN Administration Non-Formulary Medi cation 0.63 mg 10/16/19 04:28 10/16/19 16:55 Albuterol Sulfat e INHALATION Not Given Q6H [facility] Fluticasone/Salmet yessi 1 puff 10/16/19 09:00 10/16/19 20:08 Advair Diskus 25 0-50 INHALATION 1 diskus BID RUSLAN Administration Vitals/I&O/Wt Last Vital Signs Temp 98.2 F 10/17/19 00:00 Pulse 74 10/17/19 08:57 Resp 16 10/17/19 08:57 BP 163/68 10/17/19 07:00 Pulse Ox 94 10/17/19 08:57 10/16/19 10/17/1910/17/20 22:59 06:59 14:59 Intake Total 660 / 1200 180 / 1380 Output Total 1755 / 1755 600 / 2355 Balance -1095 / -555 -420 / -975 Weight last 48 hrs Weight 92.079 kg Physical Exam Const: COMMON NORMALS: no apparent distress and oriented x3 GENERAL APPEARANCE: cooperative and comfortable NUTRITIONAL APPEARANCE: obese centrally obese ORIENTATION/CONSCIOUSNESS: Yes awake HENMT: COMMON NORMALS: normocephalic, head/scalp atraumatic, hearing grossly normal bilaterally and moist oral mucous membranes HEAD & SCALP: normocephalic and atraumatic Eye: COMMON NORMALS: PERRL, EOMs intact bilaterally and conjunctivae normal CONJUNCTIVA: Yes conjunctivae normal PUPIL: Yes PERRL Neck/C-Spine: COMMON NORMALS: full ROM GENERAL: Yes normal visual inspection and Yes trachea midline Resp: COMMON NORMALS: normal respiratory effort, no retractions and no use of accessory muscles EFFORT & INSPECTION: Yes able to speak in complete sentences, Yes symmetric chest movement and No tachypneic AUSCULTATION: diminished lung sounds bilateral Cardio: COMMON NORMALS: regular rate, regular rhythm, S1 normal heart sound, S2 normal heart sound and no murmurs RATE: regular rate RHYTHM: regular rhythm HEART SOUNDS: S1 normal and S2 normal GI: COMMON NORMALS: normal to inspection, nondistended, normoactive bowel sounds, soft to palpation and non-tender PALPATION: Yes soft : BLADDER/KIDNEY EXAM: Yes catheter in place Catheter type (Female): urethral Extremity: COMMON NORMALS: normal to inspection, full ROM and no clubbing, cyanosis or edema; negative for no pedal edema Neuro: COMMON NORMALS: oriented x3, moves all extremities, no focal motor deficits and no sensory deficits noted Psych: COMMON NORMALS: mental status grossly normal, thought process normal, cooperative, affect normal and speech normal SPEECH: Yes normal speech THOUGHT PROCESS: normal thought process Skin: COMMON NORMALS: no rashes or lesions noted, no jaundice, no petechiae and no mottling GENERAL SKIN EXAM: no rashes or lesions noted Urinary Catheter Management^: Bateman: Cath Placed During This Visit: yes Urethral Indwelling: Yes Reason for Continuing Indwelling Catheter: Perioperative Use in Selected Surgeries Data : 10/17/19 03:28 10/17/19 03:28 A&P Assessment and plan (1) NSTEMI (non-ST elevated myocardial infarction): -likely demand ischemia secondary to acute CHF exacerbation -presented with c/o chest pressure; alleviated with NTG -troponins with positive delta change of 34 over 6 hrs -management of CHF as noted below -KHLOE -on therapeutic Lovenox -continue BB, ASA, statin -recent cath showing multivessel CAD (total occlusion of circumflex, severe 80% LAD stenosis, 70% stenosis of diagonal, non-critical RCA stenosis); CABG recommended, has been following up with Dr. Wilson -cardiology consult appreciated -appreciate consult by Dr. Wilson; optimize for CABG on 10/20 Status: Acute Code(s): I21.4 - Non-ST elevation (NSTEMI) myocardial infarction (2) Combined systolic and diastolic congestive heart failure: -Echo (08/2019): EF=40%, G1DD, +RWMA, trace TR, mild -continue IV diuresis with Lasix; titrate as needed for optimal response. -imaging noted -[id number] -continue to monitor urine output -supplemental oxygen as needed; continue to monitor respiratory status -VSS; continue to monitor -daily weights, monitor Is & Os -telemetry monitoring -EMILY hose -replace lytes as needed Status: Acute Qualifiers: Heart failure chronicity: acute on chronic Qualified Code(s): I50.43 - Acute on chronic combined systolic (congestive) and diastolic (congestive) heart failure Code(s): I50.40 - Unspecified combined systolic (congestive) and diastolic (congestive) heart failure (3) CAD (coronary artery disease), [place] coronary artery: -has known hx of multivessel CAD pending CABG Status: Acute Qualifiers: Associated angina: with stable angina [place] vs. transplanted heart: [place] heart Qualified Code(s): I25.118 - Atherosclerotic heart disease of [place] coronary artery with other forms of angina pectoris Code(s): I25.10 - Atherosclerotic heart disease of [place] coronary artery without angina pectoris (4) Ischemic cardiomyopathy: -as noted above Status: Acute Code(s): I25.5 - Ischemic cardiomyopathy Additional A&P Information -Morbid obesity: BMI-35 kg/m2 -HTN; continue oral antihypertensives -reported hx of RA -Chronic smoker; recently had PFTs done in preparation for surgery; down to 6-7 cig/day -Hypothyroidism -hx of CVA -Chronic LE edema -NIDDM type II; last A1c-6.5; improved blood glucose control in anticipation of CABG. Continue accuchecks, ISS -Bronchitis; on Neb treatments, inhaled steroid inhaler; add empiric doxycycline -Neb treatments as needed -no need for DVT ppx as on therapeutic Lovenox -fall precautions -Dispo: home -Code status: FULL code -continue ICU care in anticipation of CABG Attestations Medical Necessity Statement*: Patient requires hospitalization for continued IV diuresis, management of multivessel CAD, pending CABG. Time Spent in Patient Care: Greater than 35 minutes (>than 50% of time spent in counselling and/or direct pt care on unit). 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 transplanted heart: [place] heart Ischemic cardiomyopathy I25.5
--- NOTE | 2019-10-17 11:18 | P.CONIM_ITS ---
Providers/Reason For Consult Consulting Physican/Specialty*: Dr. Lugo Reason for Consult*: Severe coronary artery disease Attending Physician: Elba Chavez MD Primary Care Provider: Danielle Day History of Present Illness History of Present Illness Aline Hoffmann is a 73 year old morbidly obese, diabetic, female with COPD. I saw her originally in consultation August 30, 2019 after presenting to [facility] [place]. At that time she did rule in for non-STEMI. She had presented with complaining of shortness of breath and midsternal chest discomfort. After initial evaluations which included a transthoracic echocardiogram that revealed an ejection fraction of 40% with distal anterior and apical akinesia as well as lateral wall hypokinesia. Dr. Lugo upon consultation Kalyan performed left heart catheterization on August 29, 2019. This study revealed a complex LAD/d iagonal lesion with a rather small and diffusely diseased LAD. The circumflex artery is subtotaled with a left to left collateralization as well as right to left collateralization ghosting to an OMB branch. The RCA has noncritical disease. During that admission she was administered Lovenox aspirin and nitroglycerin and subsequently placed on Plavix. She was also treated initially with Levaquin for Klebsiella in her urine. At that time, given her acute presentation as well as urinary tract infection, it was recommended to continue medical management and follow-up in outpatient setting. I saw her again in my clinic on September 09. Unfortunately, she had resumed smoking after her previous discharge with a non-STEMI. She had been in conversations with her daughter in [facility]. Her daughter is a flight simulator teacher. During her clinic visit in September, we had a lengthy discussion concerning her recommendations and particularly related to her postoperative care. I had recommended jail care, for which she originally refused but after further discussions is now readily agreeable to. At her request, though she lives in [place], she wishes to have her jail care rehabilitation here in [place]. Due to her known pulmonary dysfunction, PFTs which were performed are quite good. She can pull almost 2 L on incentive spirometry. She does have a rather dry and hacking cough but without production. She has not smoked since her recent admission and does not appear to be in any type of withdrawal problems. With this presentation, she was felt to have acute on chronic congestive failure symptoms and is undergone diuresis. Having recently seen her primary care provider in [place], she states that several medications she had been on previously were discontinued. Also, saphenous vein mapping has been performed and August. This reveals adequate conduit bilaterally, slightly more consistent on the right than the left. I had previously had very eduarda discussions with Ms. Hoffmann that she is at increased risk, particularly with wound problems. She has substantial breast tissue. She is obese, diabetic, and does use tobacco. [facility] to [facility] [employer] [employer] sports bras. I have recommended she present those here for her nurses to review and to try along with her to confirm that they provide adequate support for her breast. Review of Systems Const: Denies: fever, chills, change in appetite, change in weight, fatigue or night sweats Eyes: Denies: change in vision or blurry vision ENMT: Denies: painful swallowing or hoarseness Card: Reports: chest pain, edema, lightheadedness and shortness of breath on exertion; Denies: palpitations or irregular heart rhythm Resp: Reports: shortness of breath (With exertion) and non-productive cough GI: Denies: abdominal pain, nausea, vomiting, difficulty swallowing, heartburn/indigestion or change in bowel habits : Denies: painful urination, urinary frequency, urinary urgency or urinary hesitancy Musc: Denies: extremity pain or extremity swelling Skin/Breast: Denies: rash Neuro: Denies: headache, numbness in extremities, weakness in extremities or changes in sensation Psych: Denies: anxiety, depression or change in appetite Endo: Denies: excessive urination, excessive thirst or cold intolerance Sadi/Lymph: Denies: easy bruising, easy bleeding, petechiae or enlarged lymph nodes Meds/Allergies Home Medications and Allergies Home Medications Medication Instructions Recorded Confirmed Type carvedilol 3.125 mg tablet 3.125 mg PO BID 09/06/19 10/15/19 History ibuprofen 200 mg capsule 200 mg PO Q12H PRN cap 09/06/19 10/15/19 History isosorbide mononitrate 30 mg 30 mg PO QAM 09/06/19 10/15/19 History tablet,extended release 24 hr levothyroxine 150 mcg capsule 150 mcg PO ONCE 09/06/19 10/15/19 History losartan 50 mg tablet 50 mg PO BID 09/06/19 10/15/19 History aspirin 325 mg tablet 163 mg PO ONCE tab 09/09/19 10/15/19 History albuterol sulfate 0.63 mg INHALATION Q6H 10/15/19 10/15/19 History alprazolam 0.25 mg PO BID 10/15/19 10/15/19 History atorvastatin 40 mg PO DAILY 10/15/19 10/15/19 History fluticasone propionate [Flovent 44 mcg INHALATION BID 10/15/19 10/15/19 History HFA] furosemide 60 mg PO DAILY 10/15/19 10/15/19 History glipizide 10 mg PO DAILY 10/15/19 10/15/19 History metformin 500 mg PO BID 10/15/19 10/15/19 History mupirocin 1 applic TOPICAL BID 10/15/19 10/15/19 History Allergies Allergy/AdvReac Type Severity Reaction Status Date / Time azithromycin Allergy Severe ADR-Hyperte Verified 09/15/19 13:54 nsion codeine Allergy Unknown ADR-Vomitin Verified 09/15/19 13:54 g Current Medications Current Medications Generic Name Dose Route Start Last Admin Trade Name Freq PRN Reason Stop Dose Admin Alprazolam 0.25 mg 10/16/19 09:00 10/16/19 17:23 Xanax PO 0.25 mg BID RUSLAN Administration Aspirin 325 mg 10/16/19 04:28 10/16/19 09:00 Aspirin PO 325 mg DAILY RUSLAN Administration Atorvastatin Calcium 40 mg 10/16/19 09:00 10/16/19 09:00 Lipitor PO 40 mg DAILY RUSLAN Administration Carvedilol 3.125 mg 10/16/19 09:00 10/16/19 17:23 Coreg PO 3.125 mg BID RUSLAN Administration Enoxaparin Sodium 90 mg 10/16/19 14:30 10/17/19 02:53 Lovenox 1 mg/kg (90 mg) 90 mg SUBCUT Administration Q12H RUSLAN Furosemide 40 mg 10/16/19 11:00 10/16/19 17:23 Lasix IVP 40 mg BID RUSLAN Administration Insulin Aspart 0 unit 10/16/19 08:00 10/17/19 08:27 Novolog SUBCUT Not Given TIDWM [facility] Protocol Losartan Potassium 25 mg 10/16/19 09:00 10/16/19 09:00 Cozaar PO 25 mg DAILY RUSLAN Administration Non-Formulary Medication 0.63 mg 10/16/19 04:28 10/16/19 16:55 Albuterol Sulfate INHALATION Not Given Q6H RUSLAN Fluticasone/Salmeterol 1 puff 10/16/19 09:00 10/16/19 20:08 Advair Diskus 250-50 INHALATION 1 diskus BID RUSLAN Administration PFSH Acute PFSH: Statuses (acute, chronic, etc) shown below reflect problem list status as previously entered and may not be historically accurate Medical History Anxiety (Acute) COPD (chronic obstructive pulmonary disease) (Acute) Coronary artery arteriosclerosis (Acute) CVA (cerebral vascular accident) (Acute) Fracture of right lower extremity (Acute) Hypertension (Acute) Hypothyroid (Acute) Rheumatoid arthritis (Acute) Type 2 diabetes mellitus (Acute) Surgical History H/O: hysterectomy (Acute) Family History Mother CAD (coronary artery disease) Hypertension Pulmonary embolism Social History Smoking and tobacco status: current every day smoker Alcohol intake: never Substance/Drug Use: never Vitals/I&O/Wt Last Vital Signs Temp 98.2 F 10/17/19 00:00 Pulse 74 10/17/19 08:57 Resp 16 10/17/19 08:57 BP 163/68 10/17/19 07:00 Pulse Ox 94 10/17/19 08:57 10/16/19 10/17/19 10/17/19 22:59 06:59 14:59 Intake Total 660 / 1200 180 / 1380 240 / 240 Output Total 1755 / 1755 600 / 2355 Balance -1095 / -555 -420 / -975 240 / 240 Weight last 48 hrs Weight 203 lb Physical Exam Const: COMMON NORMALS: no apparent distress, oriented x3 and alert GENERAL APPEARANCE: cooperative, comfortable and well developed NUTRITIONAL APPEARANCE: obese morbidly obese ORIENTATION/CONSCIOUSNESS: Yes oriented to person, Yes oriented to place and Yes oriented to time HENMT: COMMON NORMALS: normocephalic HEAD & SCALP: normocephalic; no cranial bruits Neck/C-Spine: COMMON NORMALS: full ROM, supple, no JVD and no carotid bruits GENERAL: Yes trachea midline CERVICAL SPINE: Yes cervical ROM normal Chest: COMMONS NORMALS: inspection of chest normal, palpation of chest normal and inspection of breasts normal (She has very substantial volume of breast tissue which may create a wound healing issue with sternotomy) Resp: COMMON NORMALS: normal respiratory effort, no use of accessory muscles, clear to auscultation bilaterally and percussion normal EFFORT & INSPECTION: Yes able to speak in complete sentences and Yes symmetric chest movement AUSCULTATION: clear to auscultation bilaterally PERCUSSION: percussion normal Cardio: COMMON NORMALS: no JVD, regular rate, regular rhythm, S1 normal heart sound, S2 normal heart sound, no gallops, no murmurs, no rub and peripheral pulses 2+ throughout JUGULAR VENOUS DISTENTION: no JVD RATE: regular rate RHYTHM: regular rhythm HEART SOUNDS: S1 normal and S2 normal PERIPHERAL PULSES: pulses 2+ throughout Neuro: COMMON NORMALS: oriented x3, no focal motor deficits and no sensory deficits noted SENSORIUM/ORIENTATION: Yes alert, Yes oriented to person, Yes oriented to place and Yes oriented to time GAIT: Yes normal gait A&P Assessment and plan (1) NSTEMI (non-ST elevated myocardial infarction): 73-year-old female with known coronary artery disease and under outpatient evaluation for planned CABG for complex LAD lesion as well as total circumflex artery. She has depressed ejection fraction of 40% by echocardiogram. He was recently readmitted with non-STEMI and recurrent chest discomfort and dyspnea. She currently now is pain-free and back to baseline. However, given her recent readmission, we feel it prudent to proceed with evaluation to consideration for CABG during this hospitalization. He does appear to have acute on chronic CHF and currently is under treatment by Dr. Lugo and our hospitalist colleagues and is undergoing diuresis. I have spoken personally with Dr. Lugo and it is her current impression that within 3 days she should be at baseline and euvolemic in preparation for planned CABG on Friday, October 20. I have been very eduarda with her that she is at increased risk for wound healing complications related to her substantial breast tissue, long history tobacco use, nonproductive cough, morbid obesity, and diabetes mellitus. I had prior conversations with her about this in outpatient setting, and she clearly has understanding. We will await maximization of her medical management and recovery from her acute CHF in preparation for planned CABG during this hospitalization. She is agreeable to jail care postoperatively. She will be contacting her brother and her daughter today with our tentative plans. Details and risks of CABG were again carefully and frankly reviewed as had been done previously. Risks discussed include the possibility of , stroke, heart attack, major bleeding possibly requiring the need to reopen chest, infection, pneumonia, organ failure, failure to benefit, early closure of the bypass grafts, inability to complete the procedure, prolonged hospitalization, blood clots to lungs or other organs, need for further interventions, continued pain after surgery, need for future surgery, and possible long-term bleeding risk secondary to medication requirements. All questions were answered. She is at increased risk for the surgery related to the above factors that have been discussed. She wishes to proceed during this hospitalization with planned CABG. 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
[2019-10-17] MEDS: ALPRAZolam 0.25 mg Tablet PO ×2 (11:24→18:16)
[2019-10-17] MEDS: FUROsemide 10 mg/mL SDV 4mL 40 MG IVP ×2 (11:24→18:15)
[2019-10-17] MEDS: losartan 50 mg Tablet 25 MG PO (11:25)
[2019-10-17] MEDS: carvedilol 3.125 mg Tablet PO ×2 (11:25→18:16)
[2019-10-17] MEDS: aspirin 325 mg Tablet PO (11:25)
[2019-10-17] MEDS: atorvastatin 40 mg Tablet PO (11:25)
[2019-10-17 11:41] LABS: Glucose Point of Care 107 mg/dL (70-110)
[2019-10-17] MEDS: ipratropium-albuterol 3 mL Neb INHALATION (13:40)
--- NOTE | 2019-10-17 13:56 | PC.CHAP ---
Pastoral Care Encounter/Spiritual Assessment Type of Contact [] Declined utility specialist visit [] Patient/Family/Request visit [] Outpatient visit [] Follow-up visit [] Physician referral [] Code/Alert [x] Routine visit [] Staff referral [] Actively dying [] Patient sleeping [] Family support [] [] Out of room [] Palliative care [] [] Receiving care in room [] Pre-surgical visit [] Trauma [] Long length of stay [x] ICU visit [] Other: Relational/Emotional Strength [] Patient feels connected with others/family/visitors/staff [] Distress [] Loneliness/isolation [] Abandonment Spirituality of Patient [x] Person of Dee [] Attends Anabaptist of their Dee [] Believes in Prayer [] Reads Bible or Zoroastrianism materials [] There are Spiritual issues to be addressed 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 Interventions [x] Prayer [] Active listening [] Non-anxious presence [] Spiritual/emotional support [] Crisis/trauma care [] Spiritual counseling [] Bereavement support [] Provided bereavement packet [] Provided Bible/devotional materials [] Provided toy/stuffed animal, coloring book to patient or family member [] Provided Communion [] Anointing/[place] [] Salvation [x] Completed spiritual assessment [] Other: Impact on Illness or Injury [] Angry [x] Fearful [x] Anxious [] Often cries [] Exhaustion [] Unable to work [] Unable to attend synagogue [] Unable to walk/stand [] Unable to read [] Unable to drive [] Unable to eat/drink [] Unable to sleep [] Unable to be with family [] Patient intubated [] Other: Summary Patients thoughts regarding upcoming surgery are guarded. Patient said she would like to see her great grandchildren for a few more years. Time spent with patient 10 min
[2019-10-17] MEDS: isosorbide mononitrate ER 30 mg Tablet PO (16:00)
[2019-10-17 17:06] LABS: Glucose Point of Care 120 mg/dL (70-110)
[2019-10-17] MEDS: mupirocin oint 22 gm 1 APPLIC NASAL (18:15)
[2019-10-17] MEDS: doxycycline 100 mg Tablet PO (18:16)
[2019-10-17] MEDS: chlorhexidine gluconate 0.12% Btl 473 mL 15 ML MUCOUS MEM (18:16)
--- NOTE | 2019-10-17 18:33 | PM.PN ---
Subjective Subjective: Interval history: Denies any more chest pain. Shortness of breath somewhat better Medications: Reviewed: Yes Medication Review Details: Current Medications Generic Name Dose Route Start Last Admin Trade Name Nic PRN Reason Stop Dose Admin Alprazolam 0.25 mg 10/16/19 09:00 10/16/19 17:23 Xanax PO 0.25 mg BID RUSLAN Administration Aspirin 325 mg 10/16/19 04:28 10/16/19 09:00 Aspirin PO 325 mg DAILY [facility] Administration Atorvastatin Calci um 40 mg 10/16/19 09:00 10/16/19 09:00 Lipitor PO 40 mg DAILY RUSLAN Administration Carvedilol 3.125 mg 10/16/19 09:00 10/16/19 17:23 Coreg PO 3.125 mg BID [facility] Administration Enoxaparin Sodium 90 mg 10/16/19 14:30 10/17/19 02:53 Lovenox 1 mg/kg (90 mg) 90 mg SUBCUT Administration Q12H [facility] Furosemide 40 mg 10/16/19 11:00 10/16/19 17:23 Lasix IVP 40 mg BID [facility] Administration Insulin Aspart 0 unit 10/16/19 08:00 10/17/19 08:27 Novolog SUBCUT Not Given TIDWM [facility] Protocol Losartan Potassium 25 mg 10/16/19 09:00 10/16/19 09:00 Cozaar PO 25 mg DAILY [facility] Administration Non-Formulary Medi cation 0.63 mg 10/16/19 04:28 10/16/19 16:55 Albuterol Sulfat e INHALATION Not Given Q6H [facility] Fluticasone/Salmet yessi 1 puff 10/16/19 09:00 10/16/19 20:08 Advair Diskus 25 0-50 INHALATION 1 diskus BID [facility] Administration Vitals/I&O/Wt Last Vital Signs Temp 98.4 F 10/17/19 10:00 Pulse 58 L 10/17/19 16:00 Resp 18 10/17/19 16:00 BP 159/82 10/17/19 16:00 Pulse Ox 95 10/17/19 16:00 10/17/19 10/17/19 10/17/19 06:59 14:59 22:59 Intake Total 180 / 1380 600 / 600 240 / 840 Output Total 600 / 2355 1350 / 1350 Balance -420 / -975 -750 / -750 240 / -510 Weight last 48 hrs Weight 203 lb Physical Exam Narrative: EXAM NARRATIVE: GENERAL: Patient is alert, awake and oriented x3. NECK: No jugular vein distension. HEENT: No cyanosis. No icterus. No pallor. HEART: Regular S1 and S2. No murmur, rub or gallop. LUNGS: Clear to auscultate bilaterally. ABDOMEN: Soft, nontender and nondistended. Positive bowel sounds. No guarding, rebound or tenderness. CENTRAL NERVOUS SYSTEM: Grossly nonfocal. EXTREMITIES: Lower extremities without edema bilaterally. Urinary Catheter Management^: Bateman: Cath Placed During This Visit: no Urethral Indwelling: Yes Reason for Continuing Indwelling Catheter: Perioperative Use in Selected Surgeries Data : 10/17/19 03:28 10/17/19 03:28 A&P Assessment and plan (1) NSTEMI (non-ST elevated myocardial infarction): Currently stable. Continue to optimize medical management. Dr. Wilson have seen the patient , she is prepared to undergo CABG in 2-3 days. Continue anticoagulation. Status: Acute Code(s): I21.4 - Non-ST elevation (NSTEMI) myocardial infarction (2) Combined systolic and diastolic congestive heart failure: I will increase Lasix to 60 mg twice a day as she appeared to be in still decompensated state of heart failure. Electrolyte will be balanced. Status: Acute Qualifiers: Heart failure chronicity: acute on chronic Qualified Code(s): I50.43 - Acute on chronic combined systolic (congestive) and diastolic (congestive) heart failure Code(s): I50.40 - Unspecified combined systolic (congestive) and diastolic (congestive) heart failure (3) COPD (chronic obstructive pulmonary disease): Pulmonary toileting and aggressive COPD treatment as per medicine. Status: Acute Code(s): J44.9 - Chronic obstructive pulmonary disease, unspecified (4) Type 2 diabetes mellitus: Continue meticulous control of diabities. Status: Acute Code(s): E11.9 - Type 2 diabetes mellitus without complications (5) Hypertension: Continue to optimize medicine blood pressure is slightly elevated. I will increase Losartan Status: Acute Code(s): I10 - Essential (primary) hypertension Attestations Medical Necessity Statement*: Patient Requires continuation hospitalization for above defined Care and bypass surgery due to this admission. Coding Level of Care Code Established Pt Acute Java Swing Developer for Chg Fwd Patient Type Established History Expanded Problem Focused Exam Expanded Problem Focused Medical Decision Making Moderate Complexity Diagnoses NSTEMI (non-ST elevated myocardial infarction) I21.4 Combined systolic and diastolic congestive heart failure I50.43 Heart failure chronicity: acute on chronic COPD (chronic obstructive pulmonary disease) J44.9 Type 2 diabetes mellitus E11.9 Hypertension I10
[2019-10-17 19:08] LABS: Add Urine Microscopic? YES; Bilirubin Urine Neg (NEGATIVE); Blood Urine 3+ (Negative); Glucose Urine UA Norm (Normal); Ketones Urine Negative (Negative); Leukocyte Esterase Urine 2+ (Negative); Nitrate Urine Positive (Negative); Protein Urine Neg (Negative); Specific Gravity, Urine 1.015 (1.005-1.030); Urine Appearance Hazy (CLEAR); Urine Color Yellow (Yellow); Urobilinogen Urine Norm (Negative); pH Urine 6.5 (5-7)
[2019-10-17 19:09] LABS: RBC Urine 25-40 /hpf (0-2)
[2019-10-17 19:10] LABS: Add Urine Culture? Yes; Bacteria Urine 2+; Mucus Urine 1+; WBC Urine 80-100 /hpf (0-5)
[2019-10-17] MEDS: FUROsemide 10 mg/mL SDV 10mL 60 MG IVP (19:27)
[2019-10-17 22:22] LABS: Glucose Point of Care 127 mg/dL (70-110)
[2019-10-17] MEDS: potassium chloride premix 40 MEQ/100 ML PREMIX 25 MEQ IV (23:22)
[2019-10-18] VITALS (18 sets, daily range): BP systolic 101–159; BP diastolic 47–98; PULSE 60–83; RESP 12–22; TEMP 36.4–36.7; O2SAT 91–97
[2019-10-18] MEDS: enoxaparin 100 mg/mL Syringe 90 MG SUBCUT ×2 (02:27→13:50)
[2019-10-18 04:53] LABS: Basophils % 0.3 %; Eosinophils # 0.2 10^3/uL (0.0-0.8); Hematocrit 38.7 % (37.0-47.0); Lymphocytes # 1.5 10^3/uL (0.8-4.8); Lymphocytes % 25.1 %; Mean Corpuscular Hemoglobin 28.2 pg (28.0-34.0); Mean Corpuscular Volume 90.8 fL (81-99); Mean Platelet Volume 10.4 fL (7.4-10.4); Monocytes # 0.5 10^3/uL (0.2-0.9); Monocytes % 7.5 %; Neutrophils # 3.8 10^3/uL (1.8-7.7); Neutrophils % 62.6 %; Nucleated Red Blood Cells % 0 %; Platelet Count 163 10^3/cmm (130-400); Red Blood Count 4.26 10^6/uL (4.1-5.3); Red Cell Distribution Width 14.9 % (12.1-15.1)
[2019-10-18 05:10] LABS: Alanine Aminotransferase 13 U/L (0-33); Albumin Level 3.2 g/dL (3.5-5.2); Alkaline Phosphatase 91 IU/L (35-105); Anion Gap 15.4 (5-19); Aspartate Amino Transferase 13 U/L (0-32); Blood Urea Nitrogen 13 mg/dL (8-23); Calcium 8.8 mg/dL (8.5-10.5); Carbon Dioxide 25 mmol/L (22-29); Chloride 104 mmol/L (98-107); Globulin 2.7 g/dL (1.3-4.6); Glucose 139 mg/dL (65-115); Phosphorus 3.6 mg/dL (2.5-4.5); Potassium 3.4 mmol/L (3.5-5.1); Sodium 141 mmol/L (136-145); Total Bilirubin 0.4 mg/dL (0.15-1.2); Total Protein 5.9 g/dL (6.6-8.7)
[2019-10-18] MEDS: isosorbide mononitrate ER 30 mg Tablet PO (06:25)
--- NOTE | 2019-10-18 06:40 | PC.NURSE ---
up in chair/ bed bath patient was assisted to chair with two nurse assist for bed bath. sheets on bed changed. patient assisted back to bed by nurses. patient tolerated well.
[2019-10-18 07:26] LABS: Glucose Point of Care 133 mg/dL (70-110)
--- NOTE | 2019-10-18 07:54 | PC.OT ---
OT note: Received orders for CABG education. Reviewed purpose of OT and plan for OT after surgery. Discussed and gave handout for sternal precautions and discussed mobility and self-care following sternal precautions. Pt voiced understanding and was able to report and ask questions on these topics as she had also read the booklet given to her as well. Also discussed equipment and encouraged shower chair (she reports her chair is slippery so she typically holds to a walker in her shower-encouraged getting a chair that doesn't let her slide) and discussed that she won't be able to push heavily on the walker. Educated on not using UEs to push for mobility. Pt left with needs in reach.
[2019-10-18] MEDS: chlorhexidine gluconate 0.12% Btl 473 mL 15 ML MUCOUS MEM ×2 (08:48→18:05)
[2019-10-18] MEDS: mupirocin oint 22 gm 1 APPLIC NASAL ×2 (08:49→18:06)
[2019-10-18] MEDS: ALPRAZolam 0.25 mg Tablet PO ×2 (08:49→18:06)
[2019-10-18] MEDS: atorvastatin 40 mg Tablet PO (08:49)
[2019-10-18] MEDS: doxycycline 100 mg Tablet PO ×2 (08:49→18:06)
[2019-10-18] MEDS: FUROsemide 10 mg/mL SDV 10mL 60 MG IVP ×2 (08:49→18:06)
[2019-10-18] MEDS: aspirin 325 mg Tablet PO (08:49)
[2019-10-18] MEDS: carvedilol 3.125 mg Tablet PO ×2 (08:49→18:06)
--- NOTE | 2019-10-18 10:27 | P.PN_ITS ---
Subjective Subjective: Interval history: Had 1125 mL urine output overnight. AM labs noted. VSS. Resting comfortably in bed, no acute overnight events reported. Prep continues in anticipation of CABG on Friday. Better compensated clinically. Medications: Reviewed: Yes Medication Review Details: Current Medications Generic Name Dose Route Start Last Admin Trade Name Freq PRN Reason Stop Dose Admin Albuterol/Ipratrop ium 3 ml 10/16/19 02:20 10/17/19 13:40 Duoneb INHALATION 3 ml Q4H.RESPIRATORY P RN Administration SHORTNESS OF SHARMILA TH Alprazolam 0.25 mg 10/16/19 09:00 10/18/19 08:49 Xanax PO 0.25 mg BID RUSLAN Administration Aspirin 325 mg 10/16/19 04:28 10/18/19 08:49 Aspirin PO 325 mg DAILY RUSLAN Administration Atorvastatin Calci um 40 mg 10/16/19 09:00 10/18/19 08:49 Lipitor PO 40 mg DAILY RUSLAN Administration Carvedilol 3.125 mg 10/16/19 09:00 10/18/19 08:49 Coreg PO 3.125 mg BID RUSLAN Administration Chlorhexidine Gluc rodney 1 applic 10/17/19 11:30 10/18/19 09:03 Betasept TOPICAL Not Given DAILY [facility] Chlorhexidine Gluc rodney 15 ml 10/17/19 18:00 10/18/19 08:48 Perigard MUCOUS MEM 15 ml BID RUSLAN Administration Doxycycline Monohy drate 100 mg 10/17/19 18:00 10/18/19 08:49 Vibramycin PO 100 mg BID RUSLAN Administration Protocol Enoxaparin Sodium 90 mg 10/16/19 14:30 10/18/19 02:27 Lovenox 1 mg/kg (90 mg) 90 mg SUBCUT Administration Q12H [facility] Furosemide 60 mg 10/17/19 19:00 10/18/19 08:49 Lasix IVP 60 mg BID RUSLAN Administration Insulin Aspart 0 unit 10/16/19 08:00 10/18/19 07:31 Novolog SUBCUT Not Given TIDWM [facility] Protocol Isosorbide Mononit rate 30 mg 10/17/19 16:00 10/18/19 06:25 Imdur PO 30 mg QAM RUSLAN Administration Mupirocin 1 applic 10/17/19 18:00 10/18/19 08:49 Bactroban NASAL 1 cream BID RUSLAN Administration Potassium Chloride 40 meq 10/18/19 09:00 10/18/19 08:49 Klor-Con 10 PO 40 meq BID RUSLAN Administration Fluticasone/Salmet yessi 1 puff 10/16/19 09:00 10/18/19 08:02 Advair Diskus 25 0-50 INHALATION 1 puff BID RUSLAN Administration Vitals/I&O/Wt Last Vital Signs Temp 97.6 F 10/18/19 08:00 Pulse 74 10/18/19 10:00 Resp 15 10/18/19 10:00 BP 101/47 10/18/19 08:00 Pulse Ox 96 10/18/19 10:00 10/17/19 10/18/19 10/18/19 22:59 06:59 14:59 Intake Total 480 / 1080 280 / 1360 240 / 240 Output Total 850 / 2200 1125 / 3325 Balance -370 / -1120 -845 / -1965 240 / 240 Physical Exam Const: COMMON NORMALS: no apparent distress and oriented x3 GENERAL APPEARANCE: cooperative and comfortable NUTRITIONAL APPEARANCE: obese centrally obese ORIENTATION/CONSCIOUSNESS: Yes awake HENMT: COMMON NORMALS: normocephalic, head/scalp atraumatic, hearing grossly normal bilaterally and moist oral mucous membranes HEAD & SCALP: normocephalic and atraumatic Eye: COMMON NORMALS: PERRL, EOMs intact bilaterally and conjunctivae normal CONJUNCTIVA: Yes conjunctivae normal PUPIL: Yes PERRL Neck/C-Spine: COMMON NORMALS: full ROM GENERAL: Yes normal visual inspect ion and Yes trachea midline Resp: COMMON NORMALS: normal respiratory effort, no retractions and no use of accessory muscles EFFORT & INSPECTION: Yes able to speak in complete sentences, Yes symmetric chest movement and No tachypneic AUSCULTATION: diminished lung sounds bilateral Cardio: COMMON NORMALS: regular rate, regular rhythm, S1 normal heart sound, S2 normal heart sound and no murmurs RATE: regular rate RHYTHM: regular rhythm HEART SOUNDS: S1 normal and S2 normal GI: COMMON NORMALS: normal to inspection, nondistended, normoactive bowel sounds, soft to palpation and non-tender PALPATION: Yes soft : BLADDER/KIDNEY EXAM: Yes catheter in place Catheter type (Female): urethral Extremity: COMMON NORMALS: normal to inspection, full ROM and no clubbing, cyanosis or edema; negative for no pedal edema Neuro: COMMON NORMALS: oriented x3, moves all extremities, no focal motor deficits and no sensory deficits noted Psych: COMMON NORMALS: mental status grossly normal, thought process normal, cooperative, affect normal and speech normal SPEECH: Yes normal speech THOUGHT PROCESS: normal thought process Skin: COMMON NORMALS: no rashes or lesions noted, no jaundice, no petechiae and no mottling GENERAL SKIN EXAM: no rashes or lesions noted Urinary Catheter Management^: Bateman: Cath Placed During This Visit: no Urethral Indwelling: Yes Reason for Continuing Indwelling Catheter: Perioperative Use in Selected Surgeries Data : 10/18/19 03:54 10/18/19 03:54 A&P Assessment and plan (1) NSTEMI (non-ST elevated myocardial infarction): -likely demand ischemia secondary to acute CHF exacerbation -presented with c/o chest pressure; alleviated with NTG -troponins with positive delta change of 34 over 6 hrs -management of CHF as noted below -KHLOE -on therapeutic Lovenox -continue BB, ASA, statin -recent cath showing multivessel CAD (total occlusion of circumflex, severe 80% LAD stenosis, 70% stenosis of diagonal, non-critical RCA stenosis); CABG recommended, has been following up with Dr. Wilson -cardiology consult appreciated -appreciate consult by Dr. Wilson; optimize for CABG on 10/20 Status: Acute Code(s): I21.4 - Non-ST elevation (NSTEMI) myocardial infarction (2) Combined systolic and diastolic congestive heart failure: -Echo (08/2019): EF=40%, G1DD, +RWMA, trace TR, mild -continue IV diuresis with Lasix; titrate as needed for optimal response. Has diuresed 3 L -imaging noted -[id number] -continue to monitor urine output; has Bateman catheter in place -supplemental oxygen as needed; continue to monitor respiratory status -VSS; continue to monitor -daily weights, monitor Is & Os -telemetry monitoring -EMILY kuo -replace lytes as needed Status: Acute Qualifiers: Heart failure chronicity: acute on chronic Qualified Code(s): I50.43 - Acute on chronic combined systolic (congestive) and diastolic (congestive) heart failure Code(s): I50.40 - Unspecified combined systolic (congestive) and diastolic (congestive) heart failure (3) CAD (coronary artery disease), [place] coronary artery: -has known hx of multivessel CAD pending CABG Status: Acute Qualifiers: Associated angina: with stable angina [place] vs. transplanted heart: [place] heart Qualified Code(s): I25.118 - Atherosclerotic heart disease of [place] coronary artery with other forms of angina pectoris Code(s): I25.10 - Atherosclerotic heart disease of [place] coronary artery without angina pectoris (4) Ischemic cardiomyopathy: -as noted above Status: Acute Code(s): I25.5 - Ischemic cardiomyopathy Additional A&P Information -Morbid obesity: BMI-35 kg/m2 -HTN; continue oral antihypertensives -reported hx of RA -Chronic smoker; recently had PFTs done in preparation for surgery; down to 6-7 cig/day -Hypothyroidism -hx of CVA -Chronic LE edema -NIDDM type II; last A1c-6.5; improved blood glucose control in anticipation of CABG. Continue accuchecks, ISS -Bronchitis; on Neb treatments, inhaled steroid inhaler; add empiric doxycycline -Neb treatments as needed -no need for DVT ppx as on therapeutic Lovenox -fall precautions -Dispo: home -Code status: FULL code -continue ICU care in anticipation of CABG Attestations Medical Necessity Statement*: Patient requires hospitalization for continued IV diuresis and optimization pending CABG. Time Spent in Patient Care: Greater than 35 minutes (>than 50% of time spent in counselling and/or direct pt care on unit) . Coding Level of Care Code Acute Start Up Specialist for [employer]man Fwd Exam Problem Focused Diagnoses NSTEMI (non-ST elevated myocardial infarction) I21.4 Combined systolic and diastolic congestive heart failure I50.43 Heart failure chronicity: acute on chronic CAD (coronary artery disease), [place] coronary artery I25.118 Associated angina: with stable angina [place] vs. transplanted heart: [place] heart Ischemic cardiomyopathy I25.5
[2019-10-18 11:13] LABS: Glucose Point of Care 172 mg/dL (70-110)
[2019-10-18] MEDS: losartan 50 mg Tablet PO (11:25)
--- NOTE | 2019-10-18 11:29 | PC.RESP ---
Patient given information on Smoking Cessation and Pulmonary Rehab , although pt will first be a candidate for Cardiac Rehab due to cardiac issues.
[2019-10-18 16:47] LABS: Glucose Point of Care 133 mg/dL (70-110)
--- NOTE | 2019-10-18 17:39 | P.PN_ITS ---
Subjective Subjective: Interval history: Ms. Hoffmann has no complaints. Tolerating diet well. No chest pain. Preop evaluation continues for planned CABG on October 20. Currently continuing medical treatment for acute on chronic CHF. Vitals/I&O/Wt Last Vital Signs Temp 97.6 F 10/18/19 08:00 Pulse 70 10/18/19 16:00 Resp 20 H 10/18/19 16:00 BP 146/86 10/18/19 16:00 Pulse Ox 97 10/18/19 16:00 10/18/19 10/18/19 10/18/19 06:59 14:59 22:59 Intake Total 280 / 1360 360 / 360 Output Total 1125 / 3325 1300 / 1300 Balance -845 / -1965 -940 / -940 Physical Exam Resp: COMMON NORMALS: normal respiratory effort and clear to auscultation b ilaterally AUSCULTATION: clear to auscultation bilaterally Cardio: COMMON NORMALS: regular rate and regular rhythm RATE: regular rate RHYTHM: regular rhythm Extremity: GENERAL: Yes edema (1+) Urinary Catheter Management^: Bateman: Cath Placed During This Visit: no Urethral Indwelling: Yes Reason for Continuing Indwelling Catheter: Perioperative Use in Selected Surgeries Data : 10/18/19 03:54 10/18/19 03:54 A&P Assessment and plan (1) NSTEMI (non-ST elevated myocardial infarction): Continue treatment for acute on chronic CHF Continue preoperative education in preparation for planned CABG if medically cleared for October 20, 2019. Preop patient and family education continues. Patient is eager to proceed. She will be at increased risk related to diabetes, obesity, COPD, recent non- STEMI. Status: Acute Code(s): I21.4 - Non-ST elevation (NSTEMI) myocardial infarction Attestations Medical Necessity Statement*: Non-STEMI with severe coronary artery disease Time Spent in Patient Care: less than 15 minutes Coding Level of Care Code Acute Box Inspector for [facility] Diagnoses NSTEMI (non-ST elevated myocardial infarction) I21.4
--- NOTE | 2019-10-18 17:42 | PC.CHAP ---
Pastoral Care Encounter/Spiritual Assessment Type of Contact [] Declined diagnostic medical sonographer visit [] Patient/Family/Request visit [] Outpatient visit [] Follow-up visit [] Physician referral [] Code/Alert [] Routine visit [] Staff referral [] Actively dying [] Patient sleeping [] Family support [] [] Out of room [] Palliative care [] [] Receiving care in room [x] Pre-surgical visit [] Trauma [] Long length of stay [x] ICU visit [] Other: Relational/Emotional Strength [x] Patient feels connected with others/family/visitors/staff [] Distress [] Loneliness/isolation [] Abandonment Spirituality of Patient [] Person of Dee [] Attends Yarsanism of their Dee [x] Believes in Prayer [] Reads Bible or Worship materials [] There are Spiritual issues to be addressed Elementary E[employer] Teacher Interventions [x] Prayer [x] Active listening [x] Non-anxious presence [x] Spiritual/emotional support [] Crisis/trauma care [] Spiritual counseling [] Bereavement support [] Provided bereavement packet [] Provided Bible/devotional materials [] Provided toy/stuffed animal, coloring book to patient or family member [] Provided Communion [] Anointing/[place] [] Salvation [x] Completed spiritual assessment [] Other: Impact on Illness or Injury [] Angry [] Fearful [] Anxious [] Often cries [x] Exhaustion [] Unable to work [] Unable to attend nondenominational [] Unable to walk/stand [] Unable to read [] Unable to drive [] Unable to eat/drink [] Unable to sleep [] Unable to be with family [] Patient intubated [] Other: Summary Patient stated that she is always tired. Also stated that she was having triple bi-pass surgery on Friday and requested prayer. Prayed with patient and family member. Patient was visited by Elementary Esl Teacher Jerry Mattson Time spent with patient 10 minutes
--- NOTE | 2019-10-18 18:30 | P.PN_ITS ---
Subjective Subjective: Interval history: Feeling better denies any more shortness of breath. Denies chest pressure Medications: Reviewed: Yes Medication Review Details: Current Medications Generic Name Dose Route Start Last Admin Trade Name Nic PRN Reason Stop Dose Admin Albuterol/Ipratrop ium 3 ml 10/16/19 02:20 10/17/19 13:40 Duoneb INHALATION 3 ml Q4H.RESPIRATORY P RN Administration SHORTNESS OF SHARMILA TH Alprazolam 0.25 mg 10/16/19 09:00 10/18/19 08:49 Xanax PO 0.25 mg BID RUSLAN Administration Aspirin 325 mg 10/16/19 04:28 10/18/19 08:49 Aspirin PO 325 mg DAILY RUSLAN Administration Atorvastatin Calci um 40 mg 10/16/19 09:00 10/18/19 08:49 Lipitor PO 40 mg DAILY RUSLAN Administration Carvedilol 3.125 mg 10/16/19 09:00 10/18/19 08:49 Coreg PO 3.125 mg BID RUSLAN Administration Chlorhexidine Gluc rodney 1 applic 10/17/19 11:30 10/18/19 09:03 Betasept TOPICAL Not Given DAILY [facility] Chlorhexidine Gluc rodney 15 ml 10/17/19 18:00 10/18/19 08:48 Perigard MUCOUS MEM 15 ml BID [facility] Administration Doxycycline Monohy drate 100 mg 10/17/19 18:00 10/18/19 08:49 Vibramycin PO 100 mg BID [facility] Administration Protocol Enoxaparin Sodium 90 mg 10/16/19 14:30 10/18/19 02:27 Lovenox 1 mg/kg (90 mg) 90 mg SUBCUT Administration Q12H [facility] Furosemide 60 mg 10/17/19 19:00 10/18/19 08:49 Lasix IVP 60 mg BID [facility] Administration Insulin Aspart 0 unit 10/16/19 08:00 10/18/19 07:31 Novolog SUBCUT Not Given TIDWM ON [facility] OF [facility] Protocol Isosorbide Mononit rate 30 mg 10/17/19 16:00 10/18/19 06:25 Imdur PO 30 mg QAM [facility] Administration Mupirocin 1 applic 10/17/19 18:00 10/18/19 08:49 Bactroban NASAL 1 cream BID [facility] Administration Potassium Chloride 40 meq 10/18/19 09:00 10/18/19 08:49 Klor-Con 10 PO 40 meq BID RUSLAN Administration Fluticasone/Salmet yessi 1 puff 10/16/19 09:00 10/18/19 08:02 Advair Diskus 25 0-50 INHALATION 1 puff BID RUSLAN Administration Vitals/I&O/Wt Last Vital Signs Temp 97.6 F 10/18/19 08:00 Pulse 77 10/18/19 18:00 Resp 17 10/18/19 18:00 BP 155/96 10/18/19 18:00 Pulse Ox 96 10/18/19 18:00 10/18/19 10/18/19 10/18/19 06:59 14:59 22:59 Intake Total 280 / 1360 360 / 360 360 / 720 Output Total 1125 / 3325 1300 / 1300 200 / 1500 Balance -845 / -1965 -940 / -940 160 / -780 Physical Exam Narrative: EXAM NARRATIVE: GENERAL: Patient is alert, awake and oriented x3. NECK: No jugular vein distension. HEENT: No cyanosis. No icterus. No pallor. HEART: Regular S1 and S2. No murmur, rub or gallop. LUNGS: Clear to auscultate bilaterally. ABDOMEN: Soft, nontender and nondistended. Positive bowel sounds. No guarding, rebound or tenderness. CENTRAL NERVOUS SYSTEM: Grossly nonfocal. EXTREMITIES: Lower extremities without edema bilaterally. Urinary Catheter Management^: Bateman: Cath Placed During This Visit: no Urethral Indwelling: Yes Reason for Continuing Indwelling Catheter: Perioperative Use in Selected Surgeries Data : 10/18/19 03:54 10/18/19 03:54 A&P Assessment and plan (1) NSTEMI (non-ST elevated myocardial infarction): Currently stable. Continue current regimen. Patient will be going for bypass surgery in couple of days Status: Acute Code(s): I21.4 - Non-ST elevation (NSTEMI) myocardial infarction (2) Hypertension: Well controlled continue medicine Status: Acute Code(s): I10 - Essential (primary) hypertension (3) Combined systolic and diastolic congestive heart failure: Well compensated. Continue medicine Status: Acute Qualifiers: Heart failure chronicity: acute on chronic Qualified Code(s): I50.43 - Acute on chronic combined systolic (congestive) and diastolic (congestive) heart failure Code(s): I50.40 - Unspecified combined systolic (congestive) and diastolic (congestive) heart failure (4) Ischemic cardiomyopathy: Stable. Patient will be going for bypass surgery. Status: Acute Code(s): I25.5 - Ischemic cardiomyopathy (5) COPD (chronic obstructive pulmonary disease): As per medicine Status: Acute Code(s): J44.9 - Chronic obstructive pulmonary disease, unspecified Attestations Medical Necessity Statement*: Patient requires continuation hospitalization for above defined care. Coding Level of Care Code Established Pt Acute Palliative Care Physician for g Fwd Patient Type Established History Expanded Problem Focused Exam Expanded Problem Focused Medical Decision Making Moderate Complexity Diagnoses NSTEMI (non-ST elevated myocardial infarction) I21.4 Hypertension I10 Combined systolic and diastolic congestive heart failure I50.43 Heart failure chronicity: acute on chronic Ischemic cardiomyopathy I25.5 COPD (chronic obstructive pulmonary disease) J44.9
[2019-10-18 21:11] LABS: Glucose Point of Care 129 mg/dL (70-110)
[2019-10-19] VITALS (16 sets, daily range): BP systolic 105–157; BP diastolic 62–97; PULSE 59–83; RESP 12–21; TEMP 36.6–36.7; O2SAT 90–97
[2019-10-19] MEDS: bisacodyl 5 mg Tablet 10 MG PO (01:30)
[2019-10-19] MEDS: enoxaparin 100 mg/mL Syringe 90 MG SUBCUT (01:30)
[2019-10-19 05:06] LABS: Basophils % 0.5 %; Eosinophils # 0.3 10^3/uL (0.0-0.8); Hematocrit 42.9 % (37.0-47.0); Hemoglobin 13.7 g/dL (11.5-15.3); Lymphocytes # 1.5 10^3/uL (0.8-4.8); Lymphocytes % 23.4 %; Mean Corpuscular HGB Conc 31.9 g/dL (30.0-36.0); Mean Corpuscular Volume 93.9 fL (81-99); Mean Platelet Volume 9.6 fL (7.4-10.4); Monocytes # 0.6 10^3/uL (0.2-0.9); Monocytes % 8.5 %; Neutrophils % 62.3 %; Nucleated Red Blood Cells % 0 %; Platelet Count 179 10^3/cmm (130-400); Red Blood Count 4.57 10^6/uL (4.1-5.3); White Blood Count 6.5 10^3/uL (4.0-10.0)
[2019-10-19 05:21] LABS: INR 1.07 (0.8-1.2)
[2019-10-19 05:22] LABS: Partial Thromboplastin Time 34.2 SECONDS (23.9-36.7)
[2019-10-19 05:39] LABS: Alanine Aminotransferase 15 U/L (0-33); Alkaline Phosphatase 104 IU/L (35-105); Anion Gap 15.6 (5-19); Aspartate Amino Transferase 13 U/L (0-32); Blood Urea Nitrogen 20 mg/dL (8-23); Calcium 9.7 mg/dL (8.5-10.5); Carbon Dioxide 24 mmol/L (22-29); Chloride 106 mmol/L (98-107); Globulin 3.2 g/dL (1.3-4.6); Glucose 148 mg/dL (65-115); Magnesium 2.2 mg/dL (1.7-2.3); Phosphorus 3.5 mg/dL (2.5-4.5); Potassium 3.6 mmol/L (3.5-5.1); Sodium 142 mmol/L (136-145); Total Bilirubin 0.5 mg/dL (0.15-1.2); Total Protein 7.2 g/dL (6.6-8.7)
[2019-10-19 05:40] LABS: Alanine Aminotransferase 15 U/L (0-33); Alkaline Phosphatase 103 IU/L (35-105); Aspartate Amino Transferase 13 U/L (0-32); Free T4 Free Thyroxine 1.09 ng/dL (0.82-1.77); Thyroid Stimulating Hormone 3.56 uIU/mL (0.27-4.20); Total Bilirubin 0.4 mg/dL (0.15-1.2)
[2019-10-19] MEDS: isosorbide mononitrate ER 30 mg Tablet PO (05:59)
--- NOTE | 2019-10-19 06:09 | PC.NURSE ---
SHIFT SUMMARY PT HAS BEEN ALERT AND ORIENTATED. PT IV REMAINS PATENT. PT HAS NOT COMPLAINED OF ANY CHEST PAIN, SHE STATED HER BACK WAS A LITTLE UNCOMFORTABLE, NO PAIN SHE HAD WHEN SHE WAS ADMITTED. PT VITALS HAVE BEEN WNL. PT HAS HAD ADEQUATE URINE OUTPUT. PT HAS BEEN AFEBRILE THROUGH THE NIGHT.
--- NOTE | 2019-10-19 06:32 | PM.PN ---
Subjective Subjective: Interval history: Slept well. No complaints. Vitals/I&O/Wt Last Vital Signs Temp 97.9 F 10/19/19 06:00 Pulse 66 10/19/19 06:00 Resp 16 10/19/19 06:00 BP 147/80 10/19/19 06:00 Pulse Ox 92 10/19/19 06:00 10/18/19 10/18/19 10/19/19 14:59 22:59 06:59 Intake Total 360 / 360 480 / 840 100 / 940 Output Total 1300 / 1300 200 / 1500 1800 / 3300 Balance -940 / -940 280 / -660 -1700 / -2360 Physical Exam Resp: COMMON NORMALS: normal respiratory effort and clear to auscultation bilaterally AUSCULTATION: clear to auscultation bilaterally OTHER: Pulling about 1500 cc on incentive spirometry Cardio: COMMON NORMALS: regular rate, regular rhythm and S1 normal heart sound PALPATION: normal PMI RATE: regular rate RHYTHM: regular rhythm HEART SOUNDS: S1 normal Urinary Catheter Management^: Bateman: Cath Placed During This Visit: no Urethral Indwelling: Yes Reason for Continuing Indwelling Catheter: Perioperative Use in Selected Surgeries Data : 10/19/19 04:45 10/19/19 04:45 A&P Assessment and plan (1) NSTEMI (non-ST elevated myocardial infarction): Two-vessel coronary artery disease with recent readmission for second non-STEMI. Patient is now agreed to CABG. Evaluation is continuing. Acute on chronic CHF being treated and cardiology feels patient should be ready for CABG by tomorrow. Details risk of surgery again carefully and frankly discussed. Proper consents have been provided for review and signature. Patient will be at increased risk related to comorbidities to include obesity, COPD, recent non-STEMI, and diabetes mellitus as well as substantial breast tissue which will increase risk for wound healing complications. Status: Acute Code(s): I21.4 - Non-ST elevation (NSTEMI) myocardial infarction Attestations Medical Necessity Statement*: Non-STEMI with coronary artery disease Coding Level of Care Code Acute Hotel Night Auditor for [facility] Diagnoses NSTEMI (non-ST elevated myocardial infarction) I21.4
[2019-10-19 07:19] LABS: Glucose Point of Care 135 mg/dL (70-110)
--- NOTE | 2019-10-19 09:41 | PC.SOCIAL ---
Pg 2 IMM Explained to pt Pg 2 IMM. Pt verbally understands & signed. Provided a copy to pt & left on pt's bedside table. Signed, dated, & timed, then placed in chart.
[2019-10-19] MEDS: losartan 50 mg Tablet PO (10:01)
[2019-10-19] MEDS: FUROsemide 10 mg/mL SDV 10mL 60 MG IVP (10:01)
[2019-10-19] MEDS: aspirin 325 mg Tablet PO (10:01)
[2019-10-19] MEDS: atorvastatin 40 mg Tablet PO (10:02)
[2019-10-19] MEDS: carvedilol 3.125 mg Tablet PO ×2 (10:02→17:21)
[2019-10-19] MEDS: ALPRAZolam 0.25 mg Tablet PO ×2 (10:02→17:21)
[2019-10-19] MEDS: doxycycline 100 mg Tablet PO ×2 (10:02→17:21)
[2019-10-19] MEDS: chlorhexidine gluconate 0.12% Btl 473 mL 15 ML MUCOUS MEM ×2 (10:03→17:21)
[2019-10-19] MEDS: mupirocin oint 22 gm 1 APPLIC NASAL ×3 (10:03→17:21)
[2019-10-19] MEDS: chlorhexidine gluconate 4% Btl 118 mL 1 APPLIC TOPICAL (10:14)
--- NOTE | 2019-10-19 11:51 | PC.CHAP ---
Pastoral Care Encounter/Spiritual Assessment Type of Contact [] Declined regulatory affairs director visit [] Patient/Family/Request visit [] Outpatient visit [] Follow-up visit [] Physician referral [] Code/Alert [x] Routine visit [] Staff referral [] Actively dying [] Patient sleeping [] Family support [] [] Out of room [] Palliative care [] [] Receiving care in room [] Pre-surgical visit [] Trauma [] Long length of stay [x] ICU visit [] Other: Relational/Emotional Strength [] Patient feels connected with others/family/visitors/staff [] Distress [] Loneliness/isolation [] Abandonment Spirituality of Patient [x] Person of Dee [] Attends Religion of their Dee [] Believes in Prayer [] Reads Bible or Sabianism materials [] There are Spiritual issues to be addressed Unit Nurse Interventions [x] Prayer [] Active listening [] Non-anxious presence [] Spiritual/emotional support [] Crisis/trauma care [] Spiritual counseling [] Bereavement support [] Provided bereavement packet [] Provided Bible/devotional materials [] Provided toy/stuffed animal, coloring book to patient or family member [] Provided Communion [] Anointing/Reynolds [] Salvation [x] Completed spiritual assessment [] Other: Impact on Illness or Injury [] Angry [] Fearful [] Anxious [] Often cries [] Exhaustion [] Unable to work [] Unable to attend mormonism [] Unable to walk/stand [] Unable to read [] Unable to drive [] Unable to eat/drink [] Unable to sleep [] Unable to be with family [] Patient intubated [] Other: Summary awaiting surgery Time spent with patient 10min
--- NOTE | 2019-10-19 11:54 | P.PN_ITS ---
Subjective Subjective: Interval history: AM labs noted, had 1800 mL urine output overnight. CABG tomorrow. Patient seen and examined, finished working with physical therapy, is a little bit nervous about her CABG scheduled for tomorrow mostly regarding her postop recovery and inability to do as much activity as she is used to. Continues to diurese very well, clinically euvolemic. Medications: Reviewed: Yes Medication Review Details: Current Medications Generic Name Dose Route Start Last Admin Trade Name Freq PRN Reason Stop Dose Admin Albuterol/Ipratrop ium 3 ml 10/16/19 02:20 10/17/19 13:40 Duoneb INHALATION 3 ml Q4H.RESPIRATORY P RN Administration SHORTNESS OF SHARMILA TH Alprazolam 0.25 mg 10/16/19 09:00 10/19/19 10:02 Xanax PO 0.25 mg BID RUSLAN Administration Aspirin 325 mg 10/16/19 04:28 10/19/19 10:01 Aspirin PO 325 mg DAILY RUSLAN Administration Atorvastatin Calci um 40 mg 10/16/19 09:00 10/19/19 10:02 Lipitor PO 40 mg DAILY RUSLAN Administration Bisacodyl 10 mg 10/18/19 21:00 10/19/19 01:30 Dulcolax PO 10 mg DAILY PRN Administration CONSTIPATION Carvedilol 3.125 mg 10/16/19 09:00 10/19/19 10:02 Coreg PO 3.125 mg BID RUSLAN Administration Chlorhexidine Gluc rodney 1 applic 10/17/19 11:30 10/19/19 10:14 Betasept TOPICAL 1 dose DAILY RUSLAN Administration Chlorhexidine Gluc rodney 15 ml 10/17/19 18:00 10/19/19 10:03 Perigard MUCOUS MEM 15 ml BID RUSLAN Administration Chlorhexidine Gluc rodney 1 applic 10/19/19 09:00 10/19/19 10:02 Betasept TOPICAL Not Given BID [facility] Doxycycline Monohy drate 100 mg 10/17/19 18:00 10/19/19 10:02 Vibramycin PO 100 mg BID RUSLAN Administration Protocol Enoxaparin Sodium 90 mg 10/16/19 14:30 10/19/19 01:30 Lovenox 1 mg/kg (90 mg) 90 mg SUBCUT Administration Q12H [facility] Furosemide 60 mg 10/17/19 19:00 02/11/20 10:01 Lasix IVP 60 mg BID RUSLAN Administration Insulin Aspart 0 unit 10/16/19 08:00 10/19/19 11:23 Novolog SUBCUT 4 unit TIDWM RUSLAN Administration Protocol Isosorbide Mononit rate 30 mg 10/17/19 16:00 10/19/19 05:59 Imdur PO 30 mg QAM RUSLAN Administration Losartan Potassium 50 mg 10/18/19 09:00 10/19/19 10:01 Cozaar PO 50 mg DAILY RUSLAN Administration Mupirocin 1 applic 10/17/19 18:00 10/19/19 10:05 Bactroban NASAL 1 cream BID RUSLAN Administration Mupirocin 1 applic 10/19/19 09:00 10/19/19 10:05 Bactroban NASAL Not Given BID RUSLAN Potassium Chloride 40 meq 10/18/19 09:00 10/19/19 10:01 Klor-Con 10 PO 40 meq BID RUSLAN Administration Fluticasone/Salmet yessi 1 puff 10/16/19 09:00 10/19/19 08:28 Advair Diskus 25 0-50 INHALATION 1 puff BID RUSLAN Administration Vitals/I&O/Wt Last Vital Signs Temp 97.9 F 10/19/19 06:00 Pulse 67 10/19/19 10:00 Resp 20 H 10/19/19 10:00 BP 144/79 10/19/19 10:01 Pulse Ox 92 10/19/19 10:00 10/18/19 10/19/19 10/19/19 22:59 06:59 14:59 Intake Total 480 / 840 100 / 940 240 / 240 Output Total 200 / 1500 1800 / 3300 Balance 280 / -660 -1700 / -2360 240 / 240 Physical Exam Const: COMMON NORMALS: no apparent distress and oriented x3 GENERAL APPEARANCE: cooperative and comfortable NUTRITIONAL APPEARANCE: obese centrally obese ORIENTATION/CONSCIOUSNESS: Yes awake HENMT: COMMON NORMALS: normocephalic, head/scalp atraumatic, hearing grossly normal bilaterally and moist oral mucous membranes HEAD & SCALP: normocephalic and atraumatic TEETH & GINGIVA: Yes poor dentition Eye: COMMON NORMALS: PERRL, EOMs intact bilaterally and conjunctivae normal CONJUNCTIVA: Yes conjunctivae normal PUPIL: Yes PERRL Neck/C-Spine: COMMON NORMALS: full ROM GENERAL: Yes normal visual inspection and Yes trachea midline Resp: COMMON NORMALS: normal respiratory effort, no retractions and no use of accessory muscles EFFORT & INSPECTION: Yes able to speak in complete sentence s, Yes symmetric chest movement and No tachypneic AUSCULTATION: diminished lung sounds bilateral Cardio: COMMON NORMALS: regular rate, regular rhythm, S1 normal heart sound, S2 normal heart sound and no murmurs RATE: regular rate RHYTHM: regular rhythm HEART SOUNDS: S1 normal and S2 normal GI: COMMON NORMALS: normal to inspection, nondistended, normoactive bowel sounds, soft to palpation and non-tender PALPATION: Yes soft : BLADDER/KIDNEY EXAM: Yes catheter in place Catheter type (Female): urethral Extremity: COMMON NORMALS: normal to inspection, full ROM and no clubbing, cyanosis or edema; negative for no pedal edema Neuro: COMMON NORMALS: oriented x3, moves all extremities, no focal motor deficits and no sensory deficits noted Psych: COMMON NORMALS: mental status grossly normal, thought process normal, cooperative, affect normal and speech normal SPEECH: Yes normal speech THOUGHT PROCESS: normal thought process Skin: COMMON NORMALS: no rashes or lesions noted, no jaundice, no petechiae and no mottling GENERAL SKIN EXAM: no rashes or lesions noted Urinary Catheter Management^: Bateman: Cath Placed During This Visit: no Urethral Indwelling: Yes Reason for Continuing Indwelling Catheter: Perioperative Use in Selected Surgeries Data : 10/19/19 04:45 10/19/19 04:45 Micro: Microbiology 10/17/19 18:25 Urine Culture - Preliminary Urine,Clean Catch Gram Negative Rods A&P Assessment and plan (1) NSTEMI (non-ST elevated myocardial infarction): -likely demand ischemia secondary to acute CHF exacerbation -presented with c/o chest pressure; alleviated with NTG -troponins with positive delta change of 34 over 6 hrs -management of CHF as noted below -KHLOE -on therapeutic Lovenox; will need to hold dose today in anticipation of surgery tomorrow -continue BB, ASA, statin -recent cath showing multivessel CAD (total occlusion of circumflex, severe 80% LAD stenosis, 70% stenosis of diagonal, non-critical RCA stenosis); CABG r ecommended, has been following up with Dr. Wilson -cardiology consult appreciated -appreciate consult by Dr. Wilson; optimize for CABG on 10/20 Status: Acute Code(s): I21.4 - Non-ST elevation (NSTEMI) myocardial infarction (2) Combined systolic and diastolic congestive heart failure: -Echo (08/2019): EF=40%, G1DD, +RWMA, trace TR, mild -continue IV diuresis with Lasix; titrate as needed for optimal response. Has diuresed 5.4 L -imaging noted -[id number] -continue to monitor urine output; has Bateman catheter in place -supplemental oxygen as needed; continue to monitor respiratory status -VSS; continue to monitor -daily weights, monitor Is & Os -telemetry monitoring -EMILY hose -replace lytes as needed Status: Acute Qualifiers: Heart failure chronicity: acute on chronic Qualified Code(s): I50.43 - Acute on chronic combined systolic (congestive) and diastolic (congestive) heart failure Code(s): I50.40 - Unspecified combined systolic (congestive) and diastolic (congestive) heart failure (3) CAD (coronary artery disease), [place] coronary artery: -has known hx of multivessel CAD pending CABG Status: Acute Qualifiers: Associated angina: with stable angina [place] vs. transplanted heart: [place] heart Qualified Code(s): I25.118 - Atherosclerotic heart disease of [place] coronary artery with other forms of angina pectoris Code(s): I25.10 - Atherosclerotic heart disease of [place] coronary artery without angina pectoris (4) Ischemic cardiomyopathy: -as noted above Status: Acute Code(s): I25.5 - Ischemic cardiomyopathy Additional A&P Information -Morbid obesity: BMI-35 kg/m2 -HTN; continue oral antihypertensives -reported hx of RA -Chronic smoker; recently had PFTs done in preparation for surgery; down to 6-7 cig/day -Hypothyroidism -hx of CVA -Chronic LE edema -NIDDM type II; last A1c-6.5; improved blood glucose control in anticipation of CABG. Continue accuchecks, ISS -Bronchitis; on Neb treatments, inhaled steroid inhaler; empiric doxycycline -Neb treatments as needed -no need for DVT ppx as on therapeutic Lovenox -fall precautions -Dispo: home -Code status: FULL code -continue ICU care in anticipation of CABG Attestations Medical Necessity Statement*: Patient requires hospitalization for management of multivessel CAD pending CABG tomorrow. Time Spent in Patient Care: Greater than 35 minutes (>than 50% of time spent in counselling and/or direct pt care on unit) . 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 transplanted heart: [place] heart Ischemic cardiomyopathy I25.5
--- NOTE | 2019-10-19 16:41 | PC.NURSE ---
1st Shower 1st shower with betasept given.
[2019-10-19] MEDS: FUROsemide 10 mg/mL SDV 4mL 40 MG IVP (17:21)
[2019-10-19 18:06] LABS: Glucose Point of Care 146 mg/dL (70-110)
[2019-10-19 18:06] LABS: Glucose Point of Care 101 mg/dL (70-110)
--- NOTE | 2019-10-19 19:20 | PM.PN ---
Subjective Subjective: Interval history: Denies chest pain or shortness of breath. She has walked around with physical therapist. Vitals/I&O/Wt Last Vital Signs Temp 98.0 F 10/19/19 12:00 Pulse 75 10/19/19 18:00 Resp 17 10/19/19 18:00 BP 133/73 10/19/19 18:00 Pulse Ox 95 10/19/19 18:00 10/19/19 10/19/19 10/19/19 06:59 14:59 22:59 Intake Total 100 / 940 480 / 480 Output Total 1800 / 3300 850 / 850 Balance -1700 / -2360 480 / 480 -850 / -370 Physical Exam Narrative: EXAM NARRATIVE: GENERAL: Patient is alert, awake and oriented x3. NECK: No jugular vein distension. HEENT: No cyanosis. No icterus. No pallor. HEART: Regular S1 and S2. No murmur, rub or gallop. LUNGS: Clear to auscultate bilaterally. ABDOMEN: Soft, nontender and nondistended. Positive bowel sounds. No guarding, rebound or tenderness. CENTRAL NERVOUS SYSTEM: Grossly nonfocal. EXTREMITIES: Lower extremities without edema bilaterally. Pulses palpable in the lower extremities, both dorsalis pedis and posterior tibial. Urinary Catheter Management^: Bateman: Cath Placed During This Visit: no Urethral Indwelling: Yes Reason for Continuing Indwelling Catheter: Perioperative Use in Selected Surgeries Data : 10/19/19 04:45 10/19/19 04:45 Micro: Microbiology 10/17/19 18:25 Urine Culture - Preliminary Urine,Clean Catch Gram Negative Rods A&P Assessment and plan (1) Combined systolic and diastolic congestive heart failure: Well compensated. Continue Him I will back off on Lasix now. Status: Acute Qualifiers: Heart failure chronicity: acute on chronic Qualified Code(s): I50.43 - Acute on chronic combined systolic (congestive) and diastolic (congestive) heart failure Code(s): I50.40 - Unspecified combined systolic (congestive) and diastolic (congestive) heart failure (2) Hypertension: Optimally controlled continue medicine Status: Acute Qualifiers: Hypertension type: essential hypertension Qualified Code(s): I10 - Essential (primary) hypertension Code(s): I10 - Essential (primary) hypertension (3) Ischemic cardiomyopathy: Stable Status: Acute Code(s): I25.5 - Ischemic cardiomyopathy (4) NSTEMI (non-ST elevated myocardial infarction): Patient has multivessel coronary disease she Will be going for surgery tomorrow. Status: Acute Code(s): I21.4 - Non-ST elevation (NSTEMI) myocardial infarction (5) Type 2 diabetes mellitus: As per medicine Status: Acute Code(s): E11.9 - Type 2 diabetes mellitus without complications (6) COPD (chronic obstructive pulmonary disease): As per medicine Status: Acute Code(s): J44.9 - Chronic obstructive pulmonary disease, unspecified Attestations Medical Necessity Statement*: Requires continuation of hospitalization for above defined care Coding Level of Care Code Established Pt Acute Glazier Helper for Chg Fwd Patient Type Established History Expanded Problem Focused Exam Expanded Problem Focused Medical Decision Making Moderate Complexity Diagnoses Combined systolic and diastolic congestive heart failure I50.43 Heart failure chronicity: acute on chronic Hypertension I10 Hypertension type: essential hypertension Ischemic cardiomyopathy I25.5 NSTEMI (non-ST elevated myocardial infarction) I21.4 Type 2 diabetes mellitus E11.9 COPD (chronic obstructive pulmonary disease) J44.9
[2019-10-19 20:46] LABS: Glucose Point of Care 157 mg/dL (70-110)
[2019-10-20] VITALS (36 sets, daily range): BP systolic 80–143; BP diastolic 46–93; PULSE 60–97; RESP 12–19; TEMP 36.5–38.4; O2SAT 91–100
--- NOTE | 2019-10-20 06:04 | P.PN_ITS ---
Subjective Subjective: Interval history: No complaints this morning. Granddaughters are with Ms. Hoffmann this morning. She is a bit nervous as expected for the planned CABG today. Still in good mood and jovial overall. Appears to be well compensated. Greatly appreciate the expertise of Dr. Lugo and Dr. Chavez. Vitals/I&O/Wt Last Vital Signs Temp 97.7 F 10/20/19 04:00 Pulse 70 10/20/19 06:00 Resp 15 10/20/19 06:00 BP 111/84 10/20/19 06:00 Pulse Ox 92 10/20/19 06:00 10/19/19 10/19/19 10/20/19 14:59 22:59 06:59 Intake Total 480 / 480 Output Total 850 / 850 1050 / 1900 Balance 480 / 480 -850 / -370 -1050 / -1420 Physical Exam Resp: COMMON NORMALS: clear to auscultation bilaterally EFFORT & INSPECTION: Yes able to speak in complete sentences and Yes symmetric chest movement AUSCULTATION: clear to auscultation bilaterally Cardio: COMMON NORMALS: regular rate and regular rhythm RATE: regular rate RHYTHM: regular rhythm Urinary Catheter Management^: Bateman: Cath Placed During This Visit: no Urethral Indwelling: Yes Reason for Continuing Indwelling Catheter: Perioperative Use in Selected Surgeries Data : 10/19/19 04:45 10/19/19 04:45 Micro: Microbiology 10/17/19 18:25 Urine Culture - Preliminary Urine,Clean Catch Gram Negative Rods A&P Assessment and plan (1) NSTEMI (non-ST elevated myocardial infarction): Severe two-vessel coronary artery disease with recent non-STEMI, now well compensated from acute on chronic CHF Plan for CABG this morning. I again carefully discussed details and risks with Ms. Hoffmann and her granddaughters. I was very eduarda about her need for extensive rehabilitation related to her comorbidities. She and family stated understanding. Ms. Hoffmann has a excellent constitution and attitude, though unfortunately, she has numerous physical comorbidities including diabetes, COPD, obesity, limited mobility requiring a walker secondary to degenerative arthritic changes. Recovery will be a substantial challenge and she has had a markedly increased risk for perioperative complications including pulmonary dysfunction and wound healing complications particularly. I have discussed this very frankly with her. She states understanding. We will need to have an extensive conversation and overview of her [facility] rehabilitation facility and understanding of CABG recovery with the appropriate personnel at whichever SNF she may be assigned to. 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
--- NOTE | 2019-10-20 06:18 | P.ANESASSM_ITS ---
Pre-Anesthetic Assessment Pre-Anesthetic Assessment: Height/Weight: Height 1.63 m Weight 92.079 kg Temp Pulse Resp BP Pulse Ox 97.7 F 70 15 111/84 92 10/20/19 04:00 10/20/19 06:00 10/20/19 06:00 10/20/19 06:00 10/20/19 06:00 Preop Diagnosis: Coronary artery disease Proposed Procedure: Operation Date: 10/20/19 07:00 Proposed Procedures p CABG(Not Applicable) - William Wilson MD Social: Social History: Tobacco Exam: Pre-Anes Outpt Exam: alert, oriented x 3, clear to auscultation bilaterally and regular rate & rhythm Airway: Submandibular: WNL Cervical ROM: Other (limiter) MP: 3 Dentition: False (upper), Partials (lower) and Other (very poor dentation) Pulmonary: Pulmonary: COPD, HERRERA and Sleep apnea CV/HEM: CV/HEM: CAD and HTN : : None reported Hepatic: Hepatic: None reported GI: GI: None reported Metabolic: Metabolic: DM, Hyperlipidemia, Morbid obesity and Thyroid Musc/skel: Musc/skel: OA/DJD and RA Neuropsych: Neuropsych: Anxiety, CVA and Depression Anesthetic Plan: ASA status: 4 Anesthesia: Anesthesia Evaluation and General Risk of > 500 ml blood loss (7ml/kg in children): Yes, adequate IV access and fluids planned Meds/Allergies Current Medications: Current Medications Generic Name Dose Route Start Last Admin Trade Name Freq PRN Reason Stop Dose Admin Albuterol/Ipratrop ium 3 ml 10/16/19 02:20 10/17/19 13:40 Duoneb INHALATION 3 ml Q4H.RESPIRATORY P RN Administration SHORTNESS OF SHARMILA TH Alprazolam 0.25 mg 10/16/19 09:00 10/19/19 17:21 Xanax PO 0.25 mg BID RUSLAN Administration Aspirin 325 mg 10/16/19 04:28 10/19/19 10:01 Aspirin PO 325 mg DAILY RUSLAN Administration Atorvastatin Calci um 40 mg 10/16/19 09:00 10/19/19 10:02 Lipitor PO 40 mg DAILY RUSLAN Administration Bisacodyl 10 mg 10/18/19 21:00 10/19/19 01:30 Dulcolax PO 10 mg DAILY PRN Administration CONSTIPATION Carvedilol 3.125 mg 10/16/19 09:00 10/19/19 17:21 Coreg PO 3.125 mg BID RUSLAN Administration Chlorhexidine Gluc rodney 1 applic 10/17/19 11:30 10/19/19 10:14 Betasept TOPICAL 1 dose DAILY RUSLAN Administration Chlorhexidine Gluc rodney 15 ml 10/17/19 18:00 10/19/19 17:21 Perigard MUCOUS MEM 15 ml BID RUSLAN Administration Chlorhexidine Gluc rodney 1 applic 10/19/19 09:00 10/19/19 17:22 Betasept TOPICAL Not Given BID RUSLAN Doxycycline Monohy drate 100 mg 10/17/19 18:00 10/19/19 17:21 Vibramycin PO 100 mg BID [facility] Administration Protocol Enoxaparin Sodium 90 mg 10/16/19 14:30 10/20/19 01:14 Lovenox 1 mg/kg (90 mg) Not Given SUBCUT Q12H RUSLAN Furosemide 40 mg 10/19/19 18:00 10/19/19 17:21 Lasix IVP 40 mg BID RUSLAN Administration Insulin Aspart 0 unit 10/16/19 08:00 10/19/19 17:22 Novolog SUBCUT Not Given TIDWM [facility] Protocol Isosorbide Mononit rate 30 mg 10/17/19 16:00 10/19/19 05:59 Imdur PO 30 mg QAM RUSLAN Administration Losartan Potassium 50 mg 10/18/19 09:00 10/19/19 10:01 Cozaar PO 50 mg DAILY RUSLAN Administration Mupirocin 1 applic 10/17/19 18:00 10/19/19 17:21 Bactroban NASAL 1 cream BID RUSLAN Administration Mupirocin 1 applic 10/19/19 09:00 10/19/19 10:05 Bactroban NASAL Not Given BID [facility] Potassium Chloride 40 meq 10/18/19 09:00 10/19/19 17:21 Klor-Con 10 PO 40 meq BID RUSLAN Administration Fluticasone/Salmet yessi 1 puff 10/16/19 09:00 10/19/19 20:51 Advair Diskus 25 0-50 INHALATION 1 puff BID RUSLAN Administration Additional Medication Information: Current Medications Generic Name Dose Route Start Last Admin Trade Name Freq PRN Reason Stop Dose Admin Albuterol/Ipratrop ium 3 ml 10/16/19 02:20 10/17/19 13:40 Duoneb INHALATION 3 ml Q4H.RESPIRATORY P RN Administration SHORTNESS OF SHARMILA TH Alprazolam 0.25 mg 10/16/19 09:00 10/19/19 10:02 Xanax PO 0.25 mg BID RUSLAN Administration Aspirin 325 mg 10/16/19 04:28 10/19/19 10:01 Aspirin PO 325 mg DAILY RUSLAN Administration Atorvastatin Calci um 40 mg 10/16/19 09:00 10/19/19 10:02 Lipitor PO 40 mg DAILY RUSLAN Administration Bisacodyl 10 mg 10/18/19 21:00 10/19/19 01:30 Dulcolax PO 10 mg DAILY PRN Administration CONSTIPATION Carvedilol 3.125 mg 10/16/19 09:00 10/19/19 10:02 Coreg PO 3.125 mg BID RUSLAN Administration Chlorhexidine Gluc rodney 1 applic 10/17/19 11:30 10/19/19 10:14 Betasept TOPICAL 1 dose DAILY [facility] Administration Chlorhexidine Gluc rodney 15 ml 10/17/19 18:00 10/19/19 10:03 Perigard MUCOUS MEM 15 ml BID [facility] Administration Chlorhexidine Gluc rodney 1 applic 10/19/19 09:00 10/19/19 10:02 Betasept TOPICAL Not Given BID [facility] Doxycycline Monohy drate 100 mg 10/17/19 18:00 10/19/19 10:02 Vibramycin PO 100 mg BID [facility] Administration Protocol Enoxaparin Sodium 90 mg 10/16/19 14:30 10/19/19 01:30 Lovenox 1 mg/kg (90 mg) 90 mg SUBCUT Administration Q12H [facility] Furosemide 60 mg 10/17/19 19:00 10/19/19 10:01 Lasix IVP 60 mg BID [facility] Administration Insulin Aspart 0 unit 10/16/19 08:00 10/19/19 11:23 Novolog SUBCUT 4 unit TIDWM [facility] Administration Protocol Isosorbide Mononit rate 30 mg 10/17/19 16:00 10/19/19 05:59 Imdur PO 30 mg QAM RUSLAN Administration Losartan Potassium 50 mg 10/18/19 09:00 10/19/19 10:01 Cozaar PO 50 mg DAILY [facility] Administration Mupirocin 1 applic 10/17/19 18:00 10/19/19 10:05 Bactroban NASAL 1 cream BID RUSLAN Administration Mupirocin 1 applic 10/19/19 09:00 10/19/19 10:05 Bactroban NASAL Not Given BID RUSLAN Potassium Chloride 40 meq 10/18/19 09:00 10/19/19 10:01 Klor-Con 10 PO 40 meq BID RUSLAN Administration Fluticasone/Salmet yessi 1 puff 10/16/19 09:00 10/19/19 08:28 Advair Diskus 25 0-50 INHALATION 1 puff BID RUSLAN Administration PFSH Anesthesia PFSH: Medical History Anxiety (Acute) COPD (chronic obstructive pulmonary disease) (Acute) Coronary artery arteriosclerosis (Acute) CVA (cerebral vascular accident) (Acute) Fracture of right lower extremity (Acute) Hypertension (Acute) Hypothyroid (Acute) Rheumatoid arthritis (Acute) Type 2 diabetes mellitus (Acute) Surgical History H/O: hysterectomy (Acute) Family History Mother CAD (coronary artery disease) Hypertension Pulmonary embolism Social History Smoking and tobacco status: current every day smoker Alcohol intake: never Substance/Drug Use: never Data Anesthesia CBC & Chem 7: 10/19/19 04:45 10/19/19 04:45 Other Labs: Laboratory Results - last 48 hr 10/17/19 10/18/19 10/18/19 18:25 07:24 11:01 WBC RBC Hgb Hct MCV MCH MCHC RDW Plt Count MPV Neut % (Auto) Lymph % (Auto) Ware % (Auto) Eos % (Auto) Baso % (Auto) Neut # (Auto) Lymph # (Auto) Ware # (Auto) Eos # (Auto) Baso # (Auto) Nucleated RBC % (auto) Nucleated RBCs # PT INR APTT Sodium Potassium Chloride Carbon Dioxide Anion Gap BUN Creatinine Glucose POC Glucose 133 172 Calcium Phosphorus Magnesium Total Bilirubin Direct Bilirubin AST ALT Alkaline Phosphatase Total Protein Albumin Globulin TSH Free T4 Urine Color Yellow Urine Appearance Hazy A Urine pH 6.5 Ur Specific Moro 1.015 Urine Protein Neg Urine Glucose (UA) Norm Urine Ketones Negative Urine Occult Blood 3+ H Urine Nitrate Positive H Urine Bilirubin Neg Urine Urobilinogen Norm Ur Leukocyte Esterase 2+ H Urine RBC 25-40 H Urine WBC 80-100 H Ur Squamous Epith Cells 5-10 H Urine Bacteria 2+ H Urine Mucus 1+ Blood Type Antibody Screen Crossmatch 10/18/19 10/18/19 10/19/19 16:40 20:56 04:45 WBC 6.5 RBC 4.57 Hgb 13.7 Hct 42.9 MCV 93.9 MCH 30.0 MCHC 31.9 RDW 15.0 Plt Count 179 MPV 9.6 Neut % (Auto) 62.3 Lymph % (Auto) 23.4 Ware % (Auto) 8.5 Eos % (Auto) 5.0 Baso % (Auto) 0.5 Neut # (Auto) 4.0 Lymph # (Auto) 1.5 Ware # (Auto) 0.6 Eos # (Auto) 0.3 Baso # (Auto) 0.0 Nucleated RBC % (auto) 0 Nucleated RBCs # 0.0 PT INR APTT Sodium Potassium Chloride Carbon Dioxide Anion Gap BUN Creatinine Glucose POC Glucose 133 129 Calcium Phosphorus Magnesium Total Bilirubin Direct Bilirubin AST ALT Alkaline Phosphatase Total Protein Albumin Globulin TSH Free T4 Urine Color Urine Appearance Urine pH Ur Specific Moro Urine Protein Urine Glucose (UA) Urine Ketones Urine Occult Blood Urine Nitrate Urine Bilirubin Urine Urobilinogen Ur Leukocyte Esterase Urine RBC Urine WBC Ur Squamous Epith Cells Urine Bacteria Urine Mucus Blood Type Antibody Screen Crossmatch 10/19/19 10/19/19 10/19/19 04:45 04:45 04:45 WBC RBC Hgb Hct MCV MCH MCHC RDW Plt Count MPV Neut % (Auto) Lymph % (Auto) Ware % (Auto) Eos % (Auto) Baso % (Auto) Neut # (Auto) Lymph # (Auto) Ware # (Auto) Eos # (Auto) Baso # (Auto) Nucleated RBC % (auto) Nucleated RBCs # PT 14.30 H INR 1.07 APTT 34.2 Sodium Potassium Chloride Carbon Dioxide Anion Gap BUN Creatinine Glucose POC Glucose Calcium Phosphorus Magnesium Total Bilirubin 0.4 Direct Bilirubin 0.20 AST 13 ALT 15 Alkaline Phosphatase 103 Total Protein 7.0 Albumin 4.0 Globulin 3.0 TSH 3.56 Free T4 1.09 Urine Color Urine Appearance Urine pH Ur Specific Moro Urine Protein Urine Glucose (UA) Urine Ketones Urine Occult Blood Urine Nitrate Urine Bilirubin Urine Urobilinogen Ur Leukocyte Esterase Urine RBC Urine WBC Ur Squamous Epith Cells Urine Bacteria Urine Mucus Blood Type O Positive Antibody Screen Negative Crossmatch See Detail 10/19/19 10/19/19 10/19/19 04:45 07:16 11:16 WBC RBC Hgb Hct MCV MCH MCHC RDW Plt Count MPV Neut % (Auto) Lymph % (Auto) Ware % (Auto) Eos % (Auto) Baso % (Auto) Neut # (Auto) Lymph # (Auto) Ware # (Auto) Eos # (Auto) Baso # (Auto) Nucleated RBC % (auto) Nucleated RBCs # PT INR APTT Sodium 142 Potassium 3.6 Chloride 106 Carbon Dioxide 24 Anion Gap 15.6 BUN 20 Creatinine 0.8 Glucose 148 H POC Glucose 135 146 Calcium 9.7 Phosphorus 3.5 Magnesium 2.2 Total Bilirubin 0.5 Direct Bilirubin AST 13 ALT 15 Alkaline Phosphatase 104 Total Protein 7.2 Albumin 4.0 Globulin 3.2 TSH Free T4 Urine Color Urine Appearance Urine pH Ur Specific Moro Urine Protein Urine Glucose (UA) Urine Ketones Urine Occult Blood Urine Nitrate Urine Bilirubin Urine Urobilinogen Ur Leukocyte Esterase Urine RBC Urine WBC Ur Squamous Epith Cells Urine Bacteria Urine Mucus Blood Type Antibody Screen Crossmatch 10/19/19 10/19/19 17:00 20:43 WBC RBC Hgb Hct MCV MCH MCHC RDW Plt Count MPV Neut % (Auto) Lymph % (Auto) Ware % (Auto) Eos % (Auto) Baso % (Auto) Neut # (Auto) Lymph # (Auto) Ware # (Auto) Eos # (Auto) Baso # (Auto) Nucleated RBC % (auto) Nucleated RBCs # PT INR APTT Sodium Potassium Chloride Carbon Dioxide Anion Gap BUN Creatinine Glucose POC Glucose 101 157 Calcium Phosphorus Magnesium Total Bilirubin Direct Bilirubin AST ALT Alkaline Phosphatase Total Protein Albumin Globulin TSH Free T4 Urine Color Urine Appearance Urine pH Ur Specific [place] Urine Protein Urine Glucose (UA) Urine Ketones Urine Occult Blood Urine Nitrate Urine Bilirubin Urine Urobilinogen Ur Leukocyte Esterase Urine RBC Urine WBC Ur Squamous Epith Cells Urine Bacteria Urine Mucus Blood Type Antibody Screen Crossmatch Micro: Microbiology 10/17/19 18:25 Urine Culture - Preliminary Urine,Clean Catch Gram Negative Rods Cardiac Studies: No Data to Display
[2019-10-20 07:16] LABS: Glucose Point of Care 143 mg/dL (70-110)
[2019-10-20] MEDS: cefUROXime 1,500 MG in sodium chloride 0.9% (plus) 50 ML 100 MG IV ×2 (08:00→16:30)
--- NOTE | 2019-10-20 08:19 | SUR.OPER ---
[id number] pt family (marlee) notified by cell phone of surgery start.
[2019-10-20] MEDS: vancomycin 1,000 MG SDV 3000 MG IRRIGATION (08:26)
[2019-10-20] MEDS: sodium bicarbonate 50 MEQ in sodium chloride 0.45% 1,000 ML 100 MEQ IV (08:30)
[2019-10-20] MEDS: heparin, porcine 1,000 unit/mL INJ 10 mL 10000 UNIT IRRIGATION (08:31)
--- NOTE | 2019-10-20 08:37 | SUR.OPER ---
0837 SURGICEL #[id number], LOT: [id number], EXP: 2023-12-07 X 2
--- NOTE | 2019-10-20 09:24 | PC.CHAP ---
Pastoral Care Encounter/Spiritual Assessment Type of Contact [] Declined barge captain visit [] Patient/Family/Request visit [] Outpatient visit [] Follow-up visit [] Physician referral [] Code/Alert [x] Routine visit [] Staff referral [] Actively dying [] Patient sleeping [] Family support [] [x] Out of room [] Palliative care [] [] Receiving care in room [] Pre-surgical visit [] Trauma [] Long length of stay [x] ICU visit [] Other: Relational/Emotional Strength [] Patient feels connected with others/family/visitors/staff [] Distress [] Loneliness/isolation [] Abandonment Spirituality of Patient [] Person of Dee [] Attends Confucianist of their Dee [] Believes in Prayer [] Reads Bible or Baptism materials [] There are Spiritual issues to be addressed Ict Support Engineer Interventions [] Prayer [] Active listening [] Non-anxious presence [] Spiritual/emotional support [] Crisis/trauma care [] Spiritual counseling [] Bereavement support [] Provided bereavement packet [] Provided Bible/devotional materials [] Provided toy/stuffed animal, coloring book to patient or family member [] Provided Communion [] Anointing/Peerless [] Salvation [] Completed spiritual assessment [] Other: Impact on Illness or Injury [] Angry [] Fearful [] Anxious [] Often cries [] Exhaustion [] Unable to work [] Unable to attend druze [] Unable to walk/stand [] Unable to read [] Unable to drive [] Unable to eat/drink [] Unable to sleep [] Unable to be with family [] Patient intubated [] Other: Summary Patient in surgery Time spent with patient
--- NOTE | 2019-10-20 10:15 | SUR.OPER ---
1017 pt on bypass. icu and family notified.
--- NOTE | 2019-10-20 13:08 | P.PN_ITS ---
Subjective Subjective: Interval history: CABG today; no acute overnight events reported, had 1050 mL urine output overnight. Patient seen upon her return from her CABG at approximately 7 to 7:[address] Wilson at bedside. Currently being settled in ICU. Medications: Reviewed: Yes Medication Review Details: Current Medications Generic Name Dose Route Start Last Admin Trade Name Freq PRN Reason Stop Dose Admin Albuterol/Ipratrop ium 3 ml 10/16/19 02:20 10/17/19 13:40 Duoneb INHALATION 3 ml Q4H.RESPIRATORY P RN Administration SHORTNESS OF SHARMILA TH Aspirin 325 mg 10/16/19 04:28 10/19/19 10:01 Aspirin PO 325 mg DAILY RUSLAN Administration Atorvastatin Calci um 40 mg 10/16/19 09:00 10/19/19 10:02 Lipitor PO 40 mg DAILY RUSLAN Administration Bisacodyl 10 mg 10/18/19 21:00 10/19/19 01:30 Dulcolax PO 10 mg DAILY PRN Administration CONSTIPATION Carvedilol 3.125 mg 10/16/19 09:00 10/19/19 17:21 Coreg PO 3.125 mg BID RUSLAN Administration Chlorhexidine Gluc rodney 1 applic 10/17/19 11:30 10/19/19 10:14 Betasept TOPICAL 1 dose DAILY RUSLAN Administration Chlorhexidine Gluc rodney 15 ml 10/17/19 18:00 10/19/19 17:21 Perigard MUCOUS MEM 15 ml BID RUSLAN Administration Chlorhexidine Gluc rodney 1 applic 10/19/19 09:00 10/19/19 17:22 Betasept TOPICAL Not Given BID [facility] Doxycycline Monohy drate 100 mg 10/17/19 18:00 10/19/19 17:21 Vibramycin PO 100 mg BID RUSLAN Administration Protocol Enoxaparin Sodium 90 mg 10/16/19 14:30 10/20/19 01:14 Lovenox 1 mg/kg (90 mg) Not Given SUBCUT Q12H RUSLAN Furosemide 40 mg 10/19/19 18:00 10/19/19 17:21 Lasix IVP 40 mg BID RUSLAN Administration Sodium Bicarbonate 50 meq/ 1,050 mls @ 100 m ls/hr 10/20/19 08:30 10/20/19 08:34 Sodium Chloride IV Infused .[id number] RUSLAN Infusion Insulin Aspart 0 unit 10/16/19 08:00 10/19/19 17:22 Novolog SUBCUT Not Given TIDWM [facility] Protocol Isosorbide Mononit rate 30 mg 10/17/19 16:00 10/19/19 05:59 Imdur PO 30 mg QAM RUSLAN Administration Losartan Potassium 50 mg 10/18/19 09:00 10/19/19 10:01 Cozaar PO 50 mg DAILY RUSLAN Administration Mupirocin 1 applic 10/17/19 18:00 10/19/19 17:21 Bactroban NASAL 1 cream BID RUSLAN Administration Mupirocin 1 applic 10/19/19 09:00 10/19/19 10:05 Bactroban NASAL Not Given BID RUSLAN Potassium Chloride 40 meq 10/18/19 09:00 10/19/19 17:21 Klor-Con 10 PO 40 meq BID RUSLAN Administration Fluticasone/Salmet yessi 1 puff 10/16/19 09:00 10/19/19 20:51 Advair Diskus 25 0-50 INHALATION 1 puff BID RUSLAN Administration Vitals/I&O/Wt Last Vital Signs Temp 97.7 F 10/20/19 04:00 Pulse 70 10/20/19 06:00 Resp 15 10/20/19 06:00 BP 111/84 10/20/19 06:00 Pulse Ox 92 10/20/19 06:00 10/19/19 10/20/19 10/20/19 22:59 06:59 14:59 Intake Total 1050.7 / 1050.7 Output Total 850 / 850 1050 / 1900 Balance -850 / -370 -1050 / -1420 1050.7 / 1050.7 Physical Exam Const: COMMON NORMALS: no apparent distress NUTRITIONAL APPEARANCE: obese centrally obese ORIENTATION/CONSCIOUSNESS: Yes other (Sedated) HENMT: COMMON NORMALS: normocephalic, head/scalp atraumatic and hearing grossly normal bilaterally HEAD & SCALP: normocephalic and atraumatic TEETH & GINGIVA: Yes poor dentition OTHER: Orally intubated Eye: COMMON NORMALS: PERRL, EOMs intact bilaterally and conjunctivae normal CONJUNCTIVA: Yes conjunctivae normal PUPIL: Yes PERRL Neck/C-Spine: COMMON NORMALS: full ROM GENERAL: Yes normal visual inspection and Yes trachea midline Chest: OTHER: -s/p CABG; binder in place, dressing over sternum, chest tube in place, pacer wires Resp: AUSCULTATION: diminished lung sounds bilateral OTHER: -Orally intubated, currently on FiO2-100% on vent Cardio: COMMON NORMALS: regular rate, regular rhythm, S1 normal heart sound, S2 normal heart sound and no murmurs RATE: regular rate RHYTHM: regular rhythm HEART SOUNDS: S1 normal and S2 normal GI: COMMON NORMALS: normal to inspection, nondistended, normoactive bowel sounds, soft to palpation and non-tender PALPATION: Yes soft : BLADDER/KIDNEY EXAM: Yes catheter in place Catheter type (Female): urethral Extremity: COMMON NORMALS: normal to inspection, full ROM and no clubbing, cyanosis or edema; negative for no pedal edema OTHER: -multiple IV access including R IJ, femoral arterial line Neuro: COMMON NORMALS: moves all extremities, no focal motor deficits and no sensory deficits noted Psych: OTHER: -sedated Skin: COMMON NORMALS: no rashes or lesions noted, no jaundice, no petechiae and no mottling GENERAL SKIN EXAM: no rashes or lesions noted Urinary Catheter Management^: Bateman: Cath Placed During This Visit: no Urethral Indwelling: Yes Reason for Continuing Indwelling Catheter: Perioperative Use in Selected Surgeries Data : 10/20/19 18:55 10/20/19 18:55 Micro: Microbiology 10/17/19 18:25 Urine Culture - Preliminary Urine,Clean Catch Gram Negative Rods A&P Assessment and plan (1) NSTEMI (non-ST elevated myocardial infarction): -likely demand ischemia secondary to acute CHF exacerbation -presented with c/o chest pressure; alleviated with NTG -troponins with positive delta change of 34 over 6 hrs -management of CHF as noted below -KHLOE -on therapeutic Lovenox; will need to hold dose today in anticipation of surgery tomorrow -continue BB, ASA, statin -recent cath showing multivessel CAD (total occlusion of circumflex, severe 80% LAD stenosis, 70% stenosis of diagonal, non-critical RCA stenosis); CABG recommended, has been following up with Dr. Wilson -cardiology consult appreciated -appreciate consult by Dr. Wilson; optimize for CABG on 10/20 Status: Acute Code(s): I21.4 - Non-ST elevation (NSTEMI) myocardial infarction (2) Combined systolic and diastolic congestive heart failure: -Echo (08/2019): EF=40%, G1DD, +RWMA, trace TR, mild -continue IV diuresis with Lasix; titrate as needed for optimal response. Has diuresed 5.4 L -imaging noted -[id number] -continue to monitor urine output; has Bateman catheter in place -supplemental oxygen as needed; continue to monitor respiratory status -VSS; continue to monitor -daily weights, monitor Is & Os -telemetry monitoring -EMILY kuo -replace lytes as needed Status: Acute Qualifiers: Heart failure chronicity: acute on chronic Qualified Code(s): I50.43 - Acute on chronic combined systolic (congestive) and diastolic (congestive) heart failure Code(s): I50.40 - Unspecified combined systolic (congestive) and diastolic (congestive) heart failure (3) CAD (coronary artery disease), [place] coronary artery: -has known hx of multivessel CAD pending CABG Status: Acute Qualifiers: Associated angina: with stable angina [place] vs. transplanted heart: [place] heart Qualified Code(s): I25.118 - Atherosclerotic heart disease of [place] coronary artery with other forms of angina pectoris Code(s): I25.10 - Atherosclerotic heart disease of [place] coronary artery without angina pectoris (4) Ischemic cardiomyopathy: -as noted above Status: Acute Code(s): I25.5 - Ischemic cardiomyopathy Additional A&P Information -Morbid obesity: BMI-35 kg/m2 -HTN; continue oral antihypertensives -reported hx of RA -Chronic smoker; recently had PFTs done in preparation for surgery; down to 6-7 cig/day -Hypothyroidism -hx of CVA -Chronic LE edema -NIDDM type II; last A1c-6.5; improved blood glucose control in anticipation of CABG. Continue accuchecks, ISS -Bronchitis; on Neb treatments, inhaled steroid inhaler; empiric doxycycline -Neb treatments as needed -no need for DVT ppx as on therapeutic Lovenox -fall precautions -Dispo: will need SNF placement -Code status: FULL code -continue ICU care in anticipation of CABG Attestations Medical Necessity Statement*: Patient requires hospitalization for CABG and appropriate post-op care. Time Spent in Patient Care: Greater than 35 minutes (>than 50% of time spent in counselling and/or direct pt care on unit) . Coding Level of Care Code Acute Refrigerating Technician for Usman Moss Exam Problem Focused Diagnoses NSTEMI (non-ST elevated myocardial infarction) I21.4 Combined systolic and diastolic congestive heart failure I50.43 Heart failure chronicity: acute on chronic CAD (coronary artery disease), [place] coronary artery I25.118 Associated angina: with stable angina [place] vs. transplanted heart: [place] heart Ischemic cardiomyopathy I25.5
--- NOTE | 2019-10-20 15:08 | SUR.OPER ---
1428 family called to consultation room to be given update on dire pt condition, jean paul camarena and micheline camarena delivered the message from dr malagon.
--- NOTE | 2019-10-20 15:17 | SUR.OPER ---
1517 pt off bypass. family and icu notified
--- NOTE | 2019-10-20 16:04 | SUR.OPER ---
8813 pt back on bypass, family and icu notified
--- NOTE | 2019-10-20 16:17 | SUR.OPER ---
1619 pt off bypass
--- NOTE | 2019-10-20 17:12 | SUR.OPER ---
1630 pacemaker turned off
--- NOTE | 2019-10-20 17:13 | XRR_ITS ---
PROCEDURE INFORMATION: Exam: XR Chest, 1 View Exam date and time: 10/20/2019 6:32 PM Age: 73 years old Clinical indication: Pain; Other: Post op; Prior surgery; Surgery date: Post-operative (0-2 days); Surgery type: Cabg; Additional info: Post op cabg TECHNIQUE: Imaging protocol: XR of the chest Views: Frontal portable supine view of the chest. COMPARISON: CR XR chest 1V portable [id number] 10/15/2019 11:00 PM FINDINGS: Tubes, catheters and devices: The endotracheal tube tip is approximately 5 cm above the joshua. BeThe feeding tube enters the stomach with the tip off the limits of the image. The RIGHT internal jugular [place]-Jessica catheter tip is in the proximal main pulmonary artery. The RIGHT internal jugular venous catheter tip is in the brachiocephalic vein. EKG leads are present overlying the chest. Lungs: The pulmonary vasculature is congested. Lateral LEFT midlung zone and basilar subsegmental atelectasis. Pleural space: No pleural effusion. No pneumothorax. Heart/Mediastinum: Mediastinal and left chest drains. The heart is normal in size and contour. Mediastinum: Stable. Vasculature: Moderate aortic arch atherosclerotic calcification without ectasia. Bones/joints: The patient is status post median sternotomy with intact sternal cerclage wires. XR/XR chest 1V portable [id number] IMPRESSION: 1. Pulmonary vascular congestion. 2. Lateral LEFT midlung zone and basilar subsegmental atelectasis.
--- NOTE | 2019-10-20 18:08 | ECG_ITS ---
Measurements Intervals [place] Rate: 89 P: 38 MN: 124 QRS: -37 QRSD: 136 T: 106 QT: 393 QTc: 480 SINUS RHYTHM MARKED LEFT AXIS DEVIATION [QRS AXIS < -30] RIGHT BUNDLE BRANCH BLOCK [120+ ms QRS DURATION, UPRIGHT V1, 40+ ms S IN I/aVL I/aVL/V4/V5/V6] ANTEROSEPTAL MYOCARDIAL INFARCTION [40+ ms Q WAVE IN V1-V4], OF INDETERMINATE AGEMODERATE T-WAVE ABNORMALITY, CONSIDER LATERAL ISCHEMIA [-0.1+ mV T WAVE IN I/aI/aVL/V5/V6] INTERPRETATION BASED ON A DEFAULT AGE OF 40 YEARS Compared to ECG 10/16/2019 04:30:46 Left-axis deviation now present Right bundle-branch block now present T-wave abnormality now present Possible ischemia now present Incomplete right bundle-branch block no longer present Myocardial infarct finding still present Electronically Signed On 10-20-2019 21:02:34 SAIL MAKER by Montana Peters M.D. [id number]
--- NOTE | 2019-10-20 18:41 | P.OP_ITS ---
Operative Report Date of procedure: October 20, 2019 Pre-op Diagnosis: Coronary artery disease Procedure Done: Coronary artery bypass grafting x3 (1 artery and 2 veins) utilizing in situ left internal mammary artery to the distal left anterior descending artery, reverse of his vein graft aorta to the obtuse marginal branch of the circumflex artery, and reverse of his vein graft aorta to the diagonal artery Endoscopic saphenous vein harvesting of the greater saphenous vein from the right thigh and leg. Right femoral arterial line placement Implants: Vein markers x2 Surgeon: William Wilson Anesthesia: General Estimated blood loss (mL): 1,200 (Cell salvage blood was processed and retransfused) Condition: critical Disposition: ICU Brief History: 73-year-old female presented with non-STEMI back in August and was found to have a complex LAD diagonal stenosis and a totally occluded circumflex artery. She was not felt to be a candidate for percutaneous intervention and therefore surgery was consulted to consider coronary bypass grafting. At that time, she was not agreeable to wish to discuss matters further with family. I saw her again in September where she continued discussions with her daughter. We were contacted mid-September stating she wished to proceed with surgery. She represented several days ago for the emergency department with chest discomfort or shortness of breath consistent with another non-STEMI. She was also felt to have acute on chronic CHF and underwent medical management. It was recommended that we proceed with attempted surgical revascularization given her re-presentation and second non-STEMI in 3 months. Increased risk factors for surgery include her obesity, diabetes mellitus, COPD, severe coronary artery disease, limited mobility requiring use of a walker, and CHF. Procedure: Details and risks of the surgery were carefully and frankly explained to the patient and the family. Particular risks of this surgery carefully reviewed with them included the possibility of , stroke, heart attack, major bleeding, infection, pneumonia, pain, organ failure, failure to benefit, early closure of the bypass grafts, prolonged hospital stay and subsequent need for further procedures. Increased risks for complications secondary to obesity, diabetes mellitus, COPD, severe coronary disease, limited mobility, and CHF were carefully reviewed. Patient and family understand these increased risks. All questions were answered and appropriate consents were reviewed and signed. Preoperative education for the patient and the family included both written and video materials. Ms. Hoffmann and her family wished to proceed with plans for attempted surgical revascularization for severe coronary artery bypass. PROCEDURE: Preoperative evaluation was obtained from our Anesthesia colleagues and adequate IVs were confirmed. The patient was then taken to the Operating Room Suite where general anesthesia was induced. Appropriate invasive monitoring lines were placed, including large bore peripheral IVs, central line, [place]-Jessica catheter, Bateman catheter and associated monitoring leads. After careful positioning on the Operating Room table, the patient was subsequently sterilely prepped and draped. Saphenous vein was harvested by endoscopic technique from the right thigh and leg. Branches were secured with ligature and clips and the vein was extracted from the tunnel without tension. It was then flushed with a Heparin and albumin solution and prepared for grafting. Vein harvest sites were irrigated, platelet poor plasma infused into the tunnel and port sites closed with 3-0 and 4-0 Vicryl Plus suture. Simultaneously with vein harvesting, a median sternotomy was created utilizing a #10 scalpel blade with hemostasis controlled with cautery. After reaching the sternal table, the sternum was divided with a reciprocating saw. Bleeding was controlled with cautery and judicious use of bone wax. Following this, the left chest wall was elevated with a Rultract retractor. The left internal mammary artery was dissected free with branches being secured with clips and cautery. The distal end was left intact. After harvesting of the mammary artery, a left pleural chest tube was then placed. The left chest wall was then lowered and moistened antibiotic-soaked laparotomy pads were placed in the wound, followed by an Ankeney retractor. The sternum was then and the pericardium opened and secured with stay sutures. After inspection, 2-0 pledgeted Ethibond sutures were placed at cannulation sites, at which time the patient was fully heparinized. Following this, the left internal mammary artery was taken down from its distal attachment, flushed with Papaverine solution, prepared for grafting and brisk flow confirmed. A soft bulldog was applied distally. Next, the heart was cannulated with a 22-Maltese aortic cannula, two-stage venous cannula and aortic root vent. The patient was subsequently placed on cardiopulmonary bypass and cooled systemically to 34 degrees. Aortic cross-clamp was then carefully placed and 4 degree Celsius cold blood cardioplegia was administered through the aortic root in antegrade fashion. Prompt diastolic a rrest was obtained. Left ventricular decompression was confirmed. The heart was cooled systemically with iced saline with an insulation pad in place to protect the phrenic nerve. Throughout the cross-clamp period, at 20-30 minute intervals, antegrade blood cardioplegia was administered to maintain asystole. We then inspected the cardiac surface and coronary anatomy. She had rather diffuse multisegment coronary artery disease. Initially, the OMB branch of the circumflex artery was opened up of a quite lateral and posterior position. It was 2 mm in size. Vein was anastomosed distally with running 7-0 Prolene suture proximally to a 4 mm aortotomy with 5-0 Prolene suture. Next, we turned our attention to a smaller diagonal artery which was also involved with the complex LAD stenosis. This vessel was 1.25 mm in size. A second vein was anastomosed distally in a end-to-side fashion to the diagonal artery and proximally to a 4 mm aortotomy with 5-0 Prolene suture. With the rewarming phase of bypass continuing, the left internal mammary artery was brought through a left anterior pericardial window into the field. The LAD was opened up in its mid one-third and was approximately 1.5 mm in size and diffusely diseased. An extensive arteriotomy was required in an attempt to open up through several stenotic areas. This resulted in a substantially long anastomosis to the LAD from the MCCABE. The MCCABE was then anastomosed to the LAD with a running 7-0 Prolene suture. It should be noted that all distal coronary anastomoses were performed over the appropriate size coronary shunt which was removed prior to securing the distal suture line. Administration of antegrade cardioplegia noted substantial extravasation in several areas along this long MCCABE LAD anastomosis. I attempted to repair these areas but I was not satisfied with the distal aspect of this construction. Therefore, I elected to take down this long anastomosis and oversew the LAD at this region. The LAD was opened up further distally, unfortunately the MCCABE was of adequate length to allow for reconstruction of end to side anastomosis at this new aortotomy site further distally which was of better quality. This anastomosis was also created with running 7-0 Prolene suture over a 1.5 mm shunt. I was much more pleased with this anastomosis after completion and secured the pedicle to the epicardium with 6-0 Prolene suture. Following this, aortic cross-clamp was released and de- airing maneuvers were performed through the aortic root vent, as well as being confirmed by transesophageal echocardiography. Dobutamine at 5 mcg per kilogram per minute was administered with good chronotropic and inotropic affect. The heart was paced DDD at 80 bpm. After adequate recovery from the cross-clamp period and confirmation of cardiac stability, the patient was weaned from bypass without difficulty. Surprisingly, we then noted substantial bleeding coming from near the aortic root. This was an area that had not received any type of clamp or anastomotic suture line. I surmise that this may be related to the substantial torquing required on the heart in order to reach the distal aspect of the circumflex ar james to allow for anastomosis to the OMB. This became a very problematic area of bleeding requiring us to re-clamp and rearrest the heart on 2 occasions as we attempted to repair this region. At this time, I was very concerned that we would not be able to recover from this substantial problem and therefore we had the family notified. Eventually, however, we were able to obtain control with the use of pledgeted materials as well as 4-0 and 5-0 Prolene suture. We then were able to remove the cross-clamp completion of de-airing, and completion rewarming again and eventually separate from bypass, again, surprisingly with little difficulty. Venous cannula was removed. Heparin was reversed with Protamine and confirmed by measurement of activated clotting time. Next, surprisingly, again, we had substantial bleeding now appearing from behind the heart. I was suspicious this might be related to the vein graft or perhaps a branch. Unfortunately, even while in deep Trendelenburg position, I was unable to elevate the heart to allow for adequate exposure without adversely affecting blood pressure. Therefore, we re-heparinized and reinstituted cardiopulmonary bypass. This time, however, with the heart decompressed, is able to lift enough to see that there was indeed a clip off of the vein graft in its mid one third with marked bleeding occurring. I was able to oversew this with 7-0 Prolene suture without much difficulty and we did not require cross- clamp or re-arrest for this maneuver. The heart was then decannulated and cannulation sites were oversewn as required. Pacing wires were placed and brought through the skin and secured. Radiopaque markers were placed on the vein grafts at the level of aorta. Two mediastinal drains were placed and connected to Pleur-evac suction. The wound was carefully irrigated and hemostasis was confirmed. Ankeney retractor was removed and sponge and needle count was correct. We further supported the aortic root with BioGlue. The sternum was then reapproximated very carefully with interrupted #7 stainless steel wire with Surgicel strips used beneath the sternal table. Fascia was closed with #1 Vicryl suture with the next layers being closed with 2-0 and 3-0 suture. The skin was reapproximated carefully in a subcuticular manner. Sterile dressings were applied, followed by a vacuum-assisted dressing. The patient was carefully removed from the operating room table and transferred to the Intensive Care Unit. The family was then counseled as to the details of the procedure. Given the substantial difficulties and protracted operative course, I would expect her postop course to be longer than usual and perhaps with greater challenges.
--- NOTE | 2019-10-20 18:44 | PC.NURSE ---
Received from the OR to ICU s/p cabg x 3 . Pt is intubated and placed on vent. R IJ with swan selena catheter at 50 cm and CVL.Waveforms are adequate. It was noted by Dr Elkins that the position of the CVL tip could not be observed on the post op PXCR and that the placement should be confirmed with a blood return check of each port. There is good blood return from both distal and medial ports however none from the proximal port. We are instructed to kranthi it as non functioning. CT x 3 to water sealed suction with output being monitored closely OR I &O crystalloid 3000 Cell saver 1320 EBL 1320 urine 1000
[2019-10-20 19:01] LABS: ABG PCO2 43.9 mmHg (35-45); ABG PH Result 7.42 (7.35-7.45); Arterial Blood Gas Hematocrit 32.1 % (37-47); Base Excess ABG 3.6 mmol/L (-2.0-2.0); Blood Gas Sample Type Arterial; Blood Gas Tidal Volume 0.55; HCO3 ABG 28.5 mmol/L (22-26); Oxygen Device VENT
[2019-10-20 19:02] LABS: Basophils % 0.2 %; Eosinophils # 0.1 10^3/uL (0.0-0.8); Eosinophils % 0.9 %; Hematocrit 30.1 % (37.0-47.0); Hemoglobin 9.6 g/dL (11.5-15.3); Lymphocytes # 0.6 10^3/uL (0.8-4.8); Lymphocytes % 10.5 %; Mean Corpuscular HGB Conc 31.9 g/dL (30.0-36.0); Mean Corpuscular Hemoglobin 28.6 pg (28.0-34.0); Mean Corpuscular Volume 89.6 fL (81-99); Mean Platelet Volume 9.5 fL (7.4-10.4); Monocytes # 0.2 10^3/uL (0.2-0.9); Monocytes % 3.9 %; Neutrophils # 4.7 10^3/uL (1.8-7.7); Neutrophils % 83.1 %; Nucleated Red Blood Cells % 0 %; Platelet Count 100 10^3/cmm (130-400); Red Blood Count 3.36 10^6/uL (4.1-5.3); Red Cell Distribution Width 15.9 % (12.1-15.1); White Blood Count 5.6 10^3/uL (4.0-10.0)
[2019-10-20 19:16] LABS: INR 1.32 (0.8-1.2)
[2019-10-20 19:17] LABS: Partial Thromboplastin Time 34.2 SECONDS (23.9-36.7)
[2019-10-20 19:20] LABS: Anion Gap 14.4 (5-19); Blood Urea Nitrogen 23 mg/dL (8-23); Calcium 9.4 mg/dL (8.5-10.5); Carbon Dioxide 26 mmol/L (22-29); Chloride 114 mmol/L (98-107); Glucose 142 mg/dL (65-115); Magnesium 4.4 mg/dL (1.7-2.3); Osmolality Calculated 307 mOsm/kg (285-295); Potassium 5.4 mmol/L (3.5-5.1); Sodium 149 mmol/L (136-145)
--- NOTE | 2019-10-20 19:44 | PC.NURSE ---
Pt removed from PACU status and remains in ICU intubated with same lines and gtts. There are continued concerns for airway, hemodynamics and bleeding. Recovery time 1 hour
--- NOTE | 2019-10-20 20:40 | P.PN_ITS ---
Subjective Subjective: Interval history: Post CABG day 1?3 bypass Medications: Reviewed: Yes Medication Review Details: Current Medications Generic Name Dose Route Start Last Admin Trade Name Freq PRN Reason Stop Dose Admin Albuterol/Ipratrop ium 3 ml 10/16/19 02:20 10/17/19 13:40 Duoneb INHALATION 3 ml Q4H.RESPIRATORY P RN Administration SHORTNESS OF SHARMILA TH Aspirin 325 mg 10/16/19 04:28 10/19/19 10:01 Aspirin PO 325 mg DAILY RUSLAN Administration Atorvastatin Calci um 40 mg 10/16/19 09:00 10/19/19 10:02 Lipitor PO 40 mg DAILY RUSLAN Administration Bisacodyl 10 mg 10/18/19 21:00 10/19/19 01:30 Dulcolax PO 10 mg DAILY PRN Administration CONSTIPATION Carvedilol 3.125 mg 10/16/19 09:00 10/19/19 17:21 Coreg PO 3.125 mg BID RUSLAN Administration Chlorhexidine Gluc rodney 1 applic 10/17/19 11:30 10/19/19 10:14 Betasept TOPICAL 1 dose DAILY RUSLAN Administration Chlorhexidine Gluc rodney 15 ml 10/17/19 18:00 10/19/19 17:21 Perigard MUCOUS MEM 15 ml BID RUSLAN Administration Chlorhexidine Gluc rodney 1 applic 10/19/19 09:00 10/19/19 17:22 Betasept TOPICAL Not Given BID [facility] Doxycycline Monohy drate 100 mg 10/17/19 18:00 10/19/19 17:21 Vibramycin PO 100 mg BID RUSLAN Administration Protocol Enoxaparin Sodium 90 mg 10/16/19 14:30 10/20/19 01:14 Lovenox 1 mg/kg (90 mg) Not Given SUBCUT Q12H RUSLAN Furosemide 40 mg 10/19/19 18:00 10/19/19 17:21 Lasix IVP 40 mg BID RUSLAN Administration Sodium Bicarbonate 50 meq/ 1,050 mls @ 100 m ls/hr 10/20/19 08:30 10/20/19 08:34 Sodium Chloride IV Infused .[id number] [facility] Infusion Insulin Aspart 0 unit 10/16/19 08:00 10/19/19 17:22 Novolog SUBCUT Not Given TIDWM [facility] Protocol Isosorbide Mononit rate 30 mg 10/17/19 16:00 10/19/19 05:59 Imdur PO 30 mg QAM RUSLAN Administration Losartan Potassium 50 mg 10/18/19 09:00 10/19/19 10:01 Cozaar PO 50 mg DAILY RUSLAN Administration Mupirocin 1 applic 10/17/19 18:00 10/19/19 17:21 Bactroban NASAL 1 cream BID RUSLAN Administration Mupirocin 1 applic 10/19/19 09:00 10/19/19 10:05 Bactroban NASAL Not Given BID RUSLAN Potassium Chloride 40 meq 10/18/19 09:00 10/19/19 17:21 Klor-Con 10 PO 40 meq BID RUSLAN Administration Fluticasone/Salmet yessi 1 puff 10/16/19 09:00 10/19/19 20:51 Advair Diskus 25 0-50 INHALATION 1 puff BID RUSLAN Administration Vitals/I&O/Wt Last Vital Signs Temp 100.9 F H 10/20/19 20:33 Pulse 91 10/20/19 20:33 Resp 16 10/20/19 20:33 BP 117/70 10/20/19 20:33 Pulse Ox 97 10/20/19 20:33 10/20/19 10/20/19 10/20/19 06:59 14:59 22:59 Intake Total 1050.7 / 1050.7 1197 / 2247.7 Output Total 1050 / 1900 337 / 337 Balance -1050 / -1420 1050.7 / 1050.7 860 / 1910.7 Physical Exam Narrative: EXAM NARRATIVE: GENERAL: Patient is intubated and sedated. NECK: No jugular vein distension. HEENT: No cyanosis. No icterus. No pallor. HEART: Regular S1 and S2. No murmur, rub or gallop. LUNGS: Clear bilaterally. ABDOMEN: Soft, nontender and nondistended. Positive bowel sounds. No guarding, rebound or tenderness. CENTRAL NERVOUS SYSTEM: Cannot assess due to sedation Urinary Catheter Management^: Bateman: Cath Placed During This Visit: no Urethral Indwelling: Yes Reason for Continuing Indwelling Catheter: Perioperative Use in Selected [facility] Data : 10/20/19 18:55 10/20/19 18:55 Micro: Microbiology 10/17/19 18:25 Urine Culture - Final Urine,Clean Catch Escherichia coli A&P Assessment and plan (1) NSTEMI (non-ST elevated myocardial infarction): Status post bypass x3. Currently stable. Continue as per surgery. Status: Acute Code(s): I21.4 - Non-ST elevation (NSTEMI) myocardial infarction Attestations Medical Necessity Statement*: Requires continuation hospitalization for above defined care. Coding Level of Care Code Established Pt Acute Rod Cup Filler for Danielg Fwd Patient Type Established History Expanded Problem Focused Exam Expanded Problem Focused Medical Decision Making Moderate Complexity Diagnoses NSTEMI (non-ST elevated myocardial infarction) I21.4
[2019-10-20 21:02] LABS: ABG PH Result 7.43 (7.35-7.45); Base Excess ABG -0.7 mmol/L (-2.0-2.0); HCO3 ABG 23.1 mmol/L (22-26)
[2019-10-20 21:03] LABS: Arterial Blood Gas Hematocrit 41.5 % (37-47)
[2019-10-20 21:04] LABS: Carboxyhemoglobin 0.6 %THgb (0.4-20.1); Ionized Calcium Level - ABG 1.1 mmol/L (1.1-1.4); Methemoglobin 0.4 % (0.4-1.5); Total Hemoglobin 13.5 g/dL (12-16)
[2019-10-20 21:06] LABS: Oxygen Saturation ABG 99.9
[2019-10-20 21:16] LABS: ABG PCO2 38.9 mmHg (35-45); Base Excess ABG -0.4 mmol/L (-2.0-2.0); HCO3 ABG 24.3 mmol/L (22-26); Potassium Level - ABG 5.5 mmol/L (3.5-5.0)
[2019-10-20 21:17] LABS: Arterial Blood Gas Hematocrit 29.7 % (37-47); Total Hemoglobin 9.7 g/dL (12-16)
[2019-10-20 21:19] LABS: ABG PH Result 7.42 (7.35-7.45)
[2019-10-20 21:20] LABS: ABG PCO2 35.3 mmHg (35-45); Base Excess ABG -1.4 mmol/L (-2.0-2.0); HCO3 ABG 22.8 mmol/L (22-26)
[2019-10-20 21:21] LABS: Arterial Blood Gas Hematocrit 29.7 % (37-47); Ionized Calcium Level - ABG 1.3 mmol/L (1.1-1.4); Potassium Level - ABG 5.2 mmol/L (3.5-5.0); Total Hemoglobin 9.7 g/dL (12-16)
[2019-10-20 21:24] LABS: ABG PH Result 7.46 (7.35-7.45); HCO3 ABG 25.7 mmol/L (22-26)
[2019-10-20 21:25] LABS: Potassium Level - ABG 5.6 mmol/L (3.5-5.0)
[2019-10-20 21:26] LABS: Arterial Blood Gas Hematocrit 29.2 % (37-47)
[2019-10-20 21:27] LABS: Ionized Calcium Level - ABG 1.1 mmol/L (1.1-1.4); Total Hemoglobin 9.5 g/dL (12-16)
[2019-10-20 21:29] LABS: ABG PH Result 7.42 (7.35-7.45)
[2019-10-20 21:30] LABS: ABG PCO2 38.6 mmHg (35-45); Base Excess ABG 0.4 mmol/L (-2.0-2.0); HCO3 ABG 24.8 mmol/L (22-26); Potassium Level - ABG 5.5 mmol/L (3.5-5.0)
[2019-10-20 21:31] LABS: Ionized Calcium Level - ABG 1.1 mmol/L (1.1-1.4); Total Hemoglobin 9.1 g/dL (12-16)
[2019-10-20 22:16] LABS: Basophils % 0.3 %; Eosinophils % 0.3 %; Hematocrit 32.4 % (37.0-47.0); Hemoglobin 10.4 g/dL (11.5-15.3); Lymphocytes # 0.5 10^3/uL (0.8-4.8); Lymphocytes % 8.2 %; Mean Corpuscular HGB Conc 32.1 g/dL (30.0-36.0); Mean Corpuscular Hemoglobin 29.8 pg (28.0-34.0); Mean Corpuscular Volume 92.8 fL (81-99); Mean Platelet Volume 10.3 fL (7.4-10.4); Monocytes # 0.4 10^3/uL (0.2-0.9); Monocytes % 6.8 %; Neutrophils # 4.9 10^3/uL (1.8-7.7); Neutrophils % 83.4 %; Nucleated Red Blood Cells % 0 %; Platelet Count 166 10^3/cmm (130-400); Red Blood Count 3.49 10^6/uL (4.1-5.3); Red Cell Distribution Width 16.7 % (12.1-15.1); White Blood Count 5.9 10^3/uL (4.0-10.0)
[2019-10-20 22:27] LABS: ABG PH Result 7.43 (7.35-7.45)
[2019-10-20 22:28] LABS: ABG PCO2 38.9 mmHg (35-45); HCO3 ABG 25.5 mmol/L (22-26)
[2019-10-20 22:30] LABS: INR 1.23 (0.8-1.2); Partial Thromboplastin Time 34.8 SECONDS (23.9-36.7)
[2019-10-20 22:33] LABS: Chloride 112 mmol/L (98-107); Potassium 4.8 mmol/L (3.5-5.1); Sodium 149 mmol/L (136-145)
[2019-10-20 22:34] LABS: Anion Gap 14.8 (5-19); Blood Urea Nitrogen 24 mg/dL (8-23); Calcium 9.3 mg/dL (8.5-10.5); Carbon Dioxide 27 mmol/L (22-29); Glucose 135 mg/dL (65-115); Osmolality Calculated 307 mOsm/kg (285-295)
[2019-10-20 22:39] LABS: Ionized Calcium Level - ABG 1.3 mmol/L (1.1-1.4); Total Hemoglobin 8.8 g/dL (12-16)
[2019-10-20 22:42] LABS: ABG PCO2 40.1 mmHg (35-45); HCO3 ABG 24.8 mmol/L (22-26)
[2019-10-20 22:43] LABS: Arterial Blood Gas Hematocrit 26.3 % (37-47); Ionized Calcium Level - ABG 1.3 mmol/L (1.1-1.4); Potassium Level - ABG 6.2 mmol/L (3.5-5.0); Total Hemoglobin 8.6 g/dL (12-16)
[2019-10-20 22:44] LABS: ABG PH Result 7.39 (7.35-7.45)
[2019-10-20 22:45] LABS: ABG PCO2 40.3 mmHg (35-45); Arterial Blood Gas Hematocrit 26.7 % (37-47); Base Excess ABG -0.5 mmol/L (-2.0-2.0); HCO3 ABG 24.4 mmol/L (22-26); Potassium Level - ABG 5.9 mmol/L (3.5-5.0)
[2019-10-20 22:46] LABS: Total Hemoglobin 8.7 g/dL (12-16)
[2019-10-21] VITALS (107 sets, daily range): BP systolic 88–151; BP diastolic 47–90; PULSE 85–119; RESP 5–24; TEMP 36.8–38.5; O2SAT 85–100
[2019-10-21] MEDS: aspirin 81 mg Chew Tablet PO (00:01)
[2019-10-21] MEDS: sodium chloride 0.9% 1,000 ML 75 ML IV ×2 (01:03→16:22)
[2019-10-21 03:20] LABS: Basophils % 0.1 %; Eosinophils % 0.1 %; Hematocrit 30.7 % (37.0-47.0); Hemoglobin 9.9 g/dL (11.5-15.3); Lymphocytes # 0.6 10^3/uL (0.8-4.8); Lymphocytes % 8.9 %; Mean Corpuscular HGB Conc 32.2 g/dL (30.0-36.0); Mean Corpuscular Hemoglobin 28.9 pg (28.0-34.0); Mean Corpuscular Volume 89.8 fL (81-99); Mean Platelet Volume 10.3 fL (7.4-10.4); Monocytes # 0.6 10^3/uL (0.2-0.9); Monocytes % 8.9 %; Neutrophils # 5.6 10^3/uL (1.8-7.7); Neutrophils % 81.1 %; Nucleated Red Blood Cells % 0 %; Platelet Count 166 10^3/cmm (130-400); Red Blood Count 3.42 10^6/uL (4.1-5.3); Red Cell Distribution Width 16.8 % (12.1-15.1)
[2019-10-21 03:24] LABS: Partial Thromboplastin Time 49.7 SECONDS (23.9-36.7)
[2019-10-21 03:30] LABS: Anion Gap 14.5 (5-19); Blood Urea Nitrogen 21 mg/dL (8-23); Calcium 8.9 mg/dL (8.5-10.5); Carbon Dioxide 27 mmol/L (22-29); Chloride 113 mmol/L (98-107); Glucose 144 mg/dL (65-115); Magnesium 3.5 mg/dL (1.7-2.3); Osmolality Calculated 309 mOsm/kg (285-295); Potassium 4.5 mmol/L (3.5-5.1); Sodium 150 mmol/L (136-145)
[2019-10-21 04:10] LABS: ABG PCO2 39.6 mmHg (35-45); ABG PH Result 7.49 (7.35-7.45); Base Excess ABG 6.1 mmol/L (-2.0-2.0); PO2 ABG 66.4 mmHg (80.0-100.0)
[2019-10-21 04:11] LABS: Potassium Level - ABG 4.2 mmol/L (3.5-5.0)
[2019-10-21 04:12] LABS: Blood Gas Sample Site ARTLINE; Blood Gas Sample Type ARTERIAL; Oxygen Device VENT
[2019-10-21] MEDS: fentaNYL 50 mcg/mL INJ 2mL IVP ×4 (04:47→23:38)
--- NOTE | 2019-10-21 06:00 | ECG_ITS ---
Measurements Intervals [place] Rate: 96 P: 36 NE: 122 QRS: 22 QRSD: 115 T: 113 QT: 361 QTc: 457 SINUS RHYTHM SEPTAL MYOCARDIAL INFARCTION [40+ ms Q WAVE IN V1/V2], OF INDETERMINATE AGE MODERATE T-WAVE ABNORMALITY, CONSIDER ANTEROLATERAL ISCHEMIA [-0.1+ mV T WAVE IN V3-V6] Compared to ECG 10/20/2019 20:22:26 Left-axis deviation no longer present Right bundle-branch block no longer present Myocardial infarct finding still present T-wave abnormality still present Possible ischemia still present Electronically Signed On 10-21-2019 20:42:16 PASSENGER RATE CLERK by Ismael Lugo M.D. [id number]
--- NOTE | 2019-10-21 06:00 | XRR_ITS ---
PROCEDURE INFORMATION: Exam: XR Chest, 1 View Exam date and time: 10/21/2019 5:03 AM Age: 73 years old Clinical indication: Pain; Other: Post op; Prior surgery; Surgery date: Post-operative (0-2 days); Surgery type: Cabg; Additional info: Post op cabg TECHNIQUE: Imaging protocol: XR of the chest Views: Frontal portable supine view of the chest. COMPARISON: CR XR chest 1V portable [id number] 10/20/2019 6:20 PM FINDINGS: Tubes, catheters and devices: The endotracheal tube tip is approximately 5.5 cm above the joshua. The RIGHT internal jugular [place]-Jessica catheter tip is in the proximal main pulmonary artery. A 2nd RIGHT internal jugular venous catheter tip is in the brachiocephalic vein. EKG leads are present overlying the chest. Lungs: Improved left mid lung zone subsegmental atelectasis. Increased left basilar pulmonary subsegmental atelectasis. The pulmonary vasculature is less congested and better defined. Pleural space: No pleural effusion. No pneumothorax. Heart/Mediastinum: Mediastinal and left chest drains. The heart is normal in size and contour. Bones/joints: The patient is status post median sternotomy with intact sternal cerclage wires. Other findings: Respiratory tubing overlies the left upper chest. XR/XR chest 1V portable [id number] IMPRESSION: 1. Improved left mid lung zone subsegmental atelectasis. 2. Increased left basilar pulmonary subsegmental atelectasis. 3. Improved pulmonary vascular congestion.
--- NOTE | 2019-10-21 06:48 | PM.PN ---
Subjective Subjective: Interval history: Postop day #1 status post CABG x3. A remarkably uneventful night. Beginning to arouse. Moving all extremities spontaneously but not to command as of yet. She is receiving some sedation. Chest of output 3 and 80 cc overnight. Still requiring 80% FiO2 though her chest x-ray looks right good. Mild tachycardia is noted. Excellent hemodynamic parameters. Vitals/I&O/Wt Last Vital Signs Temp 100.8 F H 10/20/19 20:51 Pulse 98 10/21/19 06:15 Resp 16 10/21/19 06:15 BP 103/53 10/21/19 06:15 Pulse Ox 93 10/21/19 06:15 10/20/19 10/20/19 10/21/19 14:59 22:59 06:59 Intake Total 1050.7 / 1050.7 1418 / 2468.7 Output Total 945 / 945 448 / 1393 Balance 1050.7 / 1050.7 473 / 1523.7 -448 / 1075.7 Physical Exam Resp: COMMON NORMALS: clear to auscultation bilaterally AUSCULTATION: clear to auscultation bilaterally Cardio: COMMON NORMALS: regular rate RATE: regular rate and tachycardic Extremity: GENERAL: Yes edema Urinary Catheter Management^: Bateman: Cath Placed During This Visit: no Urethral Indwelling: Yes Reason for Continuing Indwelling Catheter: Perioperative Use in Selected Surgeries Data : 10/21/19 03:00 10/21/19 03:00 Micro: Microbiology 10/17/19 18:25 Urine Culture - Final Urine,Clean Catch Escherichia coli A&P Assessment and plan (1) Status post aorto-coronary artery bypass graft: Resume Coreg 3.125 mg twice daily Aspirin 81 mg daily CBC, BMP, chest x-ray in a.m. Will continue a slow weaning of the ventilator, though will probably require further diuresis. Currently her filling pressures are relatively low. We will attempt some gentle diuresis through the day. I would expect her operative course to be somewhat more protracted. Greatly appreciate the expertise of Dr. Lugo and our hospitalist colleagues. Status: Acute Code(s): Z95.1 - Presence of aortocoronary bypass graft Attestations Medical Necessity Statement*: Status post CABG postop day #1 Coding Level of Care Code Acute Computer Engineering Technologist for Chg Fwd Diagnoses Status post aorto-coronary artery bypass graft Z95.1
[2019-10-21] MEDS: aspirin 325 mg Tablet PO (08:49)
[2019-10-21] MEDS: doxycycline 100 mg Tablet PO ×2 (08:49→17:58)
[2019-10-21] MEDS: losartan 50 mg Tablet PO (08:49)
[2019-10-21] MEDS: pantoprazole 40 mg SDV IVP (08:49)
[2019-10-21] MEDS: atorvastatin 40 mg Tablet PO (08:50)
[2019-10-21] MEDS: carvedilol 3.125 mg Tablet PO ×2 (08:50→17:58)
[2019-10-21] MEDS: chlorhexidine gluconate 0.12% Btl 473 mL 15 ML MUCOUS MEM ×2 (08:50→18:02)
[2019-10-21] MEDS: FUROsemide 10 mg/mL SDV 4mL 40 MG IVP ×2 (08:50→18:01)
[2019-10-21] MEDS: mupirocin oint 22 gm 1 APPLIC NASAL ×2 (08:51→18:02)
--- NOTE | 2019-10-21 09:12 | P.PN_ITS ---
Subjective Subjective: Interval history: Status post CABG day 2. Patient continues to be intubated. She is off sedation. Remained stable vital bentley. Medications: Reviewed: Yes Medication Review Details: Current Medications Generic Name Dose Route Start Last Admin Trade Name Freq PRN Reason Stop Dose Admin Albuterol/Ipratrop ium 3 ml 10/16/19 02:20 10/17/19 13:40 Duoneb INHALATION 3 ml Q4H.RESPIRATORY P RN Administration SHORTNESS OF SHARMILA TH Aspirin 325 mg 10/16/19 04:28 10/19/19 10:01 Aspirin PO 325 mg DAILY RUSLAN Administration Atorvastatin Calci um 40 mg 10/16/19 09:00 10/19/19 10:02 Lipitor PO 40 mg DAILY RUSLAN Administration Bisacodyl 10 mg 10/18/19 21:00 10/19/19 01:30 Dulcolax PO 10 mg DAILY PRN Administration CONSTIPATION Carvedilol 3.125 mg 10/16/19 09:00 10/19/19 17:21 Coreg PO 3.125 mg BID RUSLAN Administration Chlorhexidine Gluc rodney 1 applic 10/17/19 11:30 10/19/19 10:14 Betasept TOPICAL 1 dose DAILY RUSLAN Administration Chlorhexidine Gluc rodney 15 ml 10/17/19 18:00 10/19/19 17:21 Perigard MUCOUS MEM 15 ml BID RUSLAN Administration Chlorhexidine Gluc rodney 1 applic 10/19/19 09:00 10/19/19 17:22 Betasept TOPICAL Not Given BID [facility] Doxycycline Monohy drate 100 mg 10/17/19 18:00 10/19/19 17:21 Vibramycin PO 100 mg BID RUSLAN Administration Protocol Enoxaparin Sodium 90 mg 10/16/19 14:30 10/20/19 01:14 Lovenox 1 mg/kg (90 mg) Not Given SUBCUT Q12H RUSLAN Furosemide 40 mg 10/19/19 18:00 10/19/19 17:21 Lasix IVP 40 mg BID RUSLAN Administration Sodium Bicarbonate 50 meq/ 1,050 mls @ 100 m ls/hr 10/20/19 08:30 10/20/19 08:34 Sodium Chloride IV Infused .[id number] RUSLAN Infusion Insulin Aspart 0 unit 10/16/19 08:00 10/19/19 17:22 Novolog SUBCUT Not Given TIDWM [facility] Protocol Isosorbide Mononit rate 30 mg 10/17/19 16:00 10/19/19 05:59 Imdur PO 30 mg QAM RUSLAN Administration Losartan Potassium 50 mg 10/18/19 09:00 10/19/19 10:01 Cozaar PO 50 mg DAILY RUSLAN Administration Mupirocin 1 applic 10/17/19 18:00 10/19/19 17:21 Bactroban NASAL 1 cream BID RUSLAN Administration Mupirocin 1 applic 10/19/19 09:00 10/19/19 10:05 Bactroban NASAL Not Given BID RUSLAN Potassium Chloride 40 meq 10/18/19 09:00 10/19/19 17:21 Klor-Con 10 PO 40 meq BID RUSLAN Administration Fluticasone/Salmet yessi 1 puff 10/16/19 09:00 10/19/19 20:51 Advair Diskus 25 0-50 INHALATION 1 puff BID RUSLAN Administration Vitals/I&O/Wt Last Vital Signs Temp 100.8 F H 10/20/19 20:51 Pulse 96 10/21/19 08:30 Resp 16 10/21/19 08:30 BP 118/66 10/21/19 08:49 Pulse Ox 91 10/21/19 08:30 10/20/19 10/21/19 10/21/19 22:59 06:59 14:59 Intake Total 1518 / 2568.7 Output Total 945 / 945 448 / 1393 100 / 100 Balance 573 / 1623.7 -448 / 1175.7 -100 / -100 Physical Exam Narrative: EXAM NARRATIVE: GENERAL: Patient is intubated patient opens her eyes try to follow command but go back to sleep. No significant purposeful movements. NECK: No jugular vein distension. HEENT: No cyanosis. No icterus. No pallor. HEART: Regular S1 and S2. No murmur, rub or gallop. LUNGS: Clear bilaterally. ABDOMEN: Mildly distended. No bowel sounds CENTRAL NERVOUS SYSTEM: Patient open her eyes on verbal command. Urinary Catheter Management^: Bateman: Cath Placed During This Visit: no Urethral Indwelling: Yes Reason for Continuing Indwelling Catheter: Perioperative Use in Selected Surgeries Data : 10/21/19 03:00 10/21/19 03:00 Micro: Microbiology 10/17/19 18:25 Urine Culture - Final Urine,Clean Catch Escherichia coli A&P Assessment and plan (1) Status post aorto-coronary artery bypass graft: Status post CABG day 2. Beta-liat has been resumed by surgery. Patient opens her eyes try to follow the command but go back to sleep. She is off sedation. Depending upon how she behaves and can wake up completely for possible weaning off trial Status: Acute Code(s): Z95.1 - Presence of aortocoronary bypass graft (2) NSTEMI (non-ST elevated myocardial infarction): Status post CABG for multivessel coronary disease. Appear to be stable. Status: Acute Code(s): I21.4 - Non-ST elevation (NSTEMI) myocardial infarction (3) Type 2 diabetes mellitus: As per medicine Status: Acute Code(s): E11.9 - Type 2 diabetes mellitus without complications (4) Combined systolic and diastolic congestive heart failure: Appears to be well compensated at the moment. We will resume Lasix Status: Acute Qualifiers: Heart failure chronicity: acute on chronic Qualified Code(s): I50.43 - Acute on chronic combined systolic (congestive) and diastolic (congestive) heart failure Code(s): I50.40 - Unspecified combined systolic (congestive) and diastolic (congestive) heart failure (5) Hypertension: Status: Acute Qualifiers: Hypertension type: essential hypertension Qualified Code(s): I10 - Essential (primary) hypertension Code(s): I10 - Essential (primary) hypertension Attestations Medical Necessity Statement*: Patient require continuation hospitalization post CABG Coding Level of Care Code Established Pt Acute Traveling Auditor for Usman Fwjennifer Patient Type Established History Expanded Problem Focused Exam Expanded Problem Focused Medical Decision Making Moderate Complexity Diagnoses Status post aorto-coronary artery bypass graft Z95.1 NSTEMI (non-ST elevated myocardial infarction) I21.4 Type 2 diabetes mellitus E11.9 Combined systolic and diastolic congestive heart failure I50.43 Heart failure chronicity: acute on chronic Hypertension I10 Hypertension type: essential hypertension
--- NOTE | 2019-10-21 09:17 | PC.OT ---
OT EVALUATION HELD SECONDARY TO PATIENT INTUBATED
--- NOTE | 2019-10-21 09:30 | PC.SOCIAL ---
IMM Update Pg 2 of IMM updated. Copy left at bedside, as patient remains intubated at this time.
--- NOTE | 2019-10-21 10:20 | PM.PN ---
Subjective Subjective: Interval history: No acute overnight events reported; has had a low grade temp, Tmax-100.9 F. Chest tube drainage of 318 mL total; had urine output of 1025 mL . AM labs noted, resumed IV diuresis and Coreg. Patient seen several times throughout the day, initially seen this morning, arousable for brief periods of time then quickly falls back asleep. This morning was on FiO2 of 80%. Throughout the day this has been cut down and she is currently on FiO2 of 40%. She is much more awake, moving her extremities, actually tore the sutures of her right IJ. Right femoral line pulled. Vital signs have been stable other than when she is moving around. Medications: Reviewed: Yes Medication Review Details: Current Medications Generic Name Dose Route Start Last Admin Trade Name Freq PRN Reason Stop Dose Admin Albuterol/Ipratrop ium 3 ml 10/16/19 02:20 10/17/19 13:40 Duoneb INHALATION 3 ml Q4H.RESPIRATORY P RN Administration SHORTNESS OF SHARMILA TH Aspirin 325 mg 10/16/19 04:28 10/21/19 08:49 Aspirin PO 325 mg DAILY RUSLAN Administration Atorvastatin Calci um 40 mg 10/16/19 09:00 10/21/19 08:50 Lipitor PO 40 mg DAILY RUSLAN Administration Bisacodyl 10 mg 10/18/19 21:00 10/19/19 01:30 Dulcolax PO 10 mg DAILY PRN Administration CONSTIPATION Carvedilol 3.125 mg 10/16/19 09:00 10/21/19 08:50 Coreg PO 3.125 mg BID RUSLAN Administration Chlorhexidine Gluc rodney 1 applic 10/17/19 11:30 10/21/19 08:44 Betasept TOPICAL Not Given DAILY RUSLAN Chlorhexidine Gluc rodney 15 ml 10/17/19 18:00 10/21/19 08:50 Perigard MUCOUS MEM 15 ml BID RUSLAN Administration Chlorhexidine Gluc rodney 1 applic 10/19/19 09:00 10/21/19 08:44 Betasept TOPICAL Not Given BID RUSLAN Chlorhexidine Gluc rodney 15 ml 10/21/19 09:00 10/21/19 08:44 Perigard MUCOUS MEM Not Given BID RUSLAN Doxycycline Monohy drate 100 mg 10/17/19 18:00 10/21/19 08:49 Vibramycin PO 100 mg BID RUSLAN Administration Protocol Enoxaparin Sodium 90 mg 10/16/19 14:30 10/21/19 01:13 Lovenox 1 mg/kg (90 mg) Not Given SUBCUT Q12H RUSLAN Fentanyl 50 mcg 10/20/19 18:08 10/21/19 04:47 Sublimaze IVP 50 mcg Q1H PRN Administration SEVERE PAIN Furosemide 40 mg 10/19/19 18:00 10/21/19 08:50 Lasix IVP 40 mg BID RUSLAN Administration Cefuroxime Sodium 1,500 mg/ 100 mls @ 200 mls /hr 10/20/19 20:30 10/21/19 08:53 Sodium Chloride IV 10/22/19 08:59 200 mls/hr Q12H RUSLAN Administration Protocol Sodium Chloride 1,000 mls @ 75 ml s/hr 10/20/19 18:15 10/21/19 01:03 Sodium Chloride 0.9% IV 75 mls/hr .[id number] RUSLAN Administration Insulin Aspart 0 unit 10/16/19 08:00 10/21/19 08:03 Novolog SUBCUT Not Given TIDWM [facility] Protocol Isosorbide Mononit rate 30 mg 10/17/19 16:00 10/21/19 05:23 [facility]dur [facility] Losartan Potassium 50 mg 10/18/19 09:00 10/21/19 08:49 Cozaar PO 50 mg DAILY [facility] Administration Mupirocin 1 applic 10/17/19 18:00 10/21/19 08:51 Bactroban NASAL 1 cream BID [facility] Administration Mupirocin 1 applic 10/19/19 09:00 10/21/19 08:44 Bactroban NASAL Not Given BID RUSLAN Mupirocin 1 applic 10/21/19 09:00 10/21/19 08:44 Bactroban NASAL Not Given BID [facility] Pantoprazole Sodiu m 40 mg 10/21/19 09:00 10/21/19 08:49 Protonix IVP 10/22/19 08:59 40 mg DAILY [facility] Administration Potassium Chloride 40 meq 10/18/19 09:00 10/20/19 18:16 Klor-Con 10 PO Not Given BID [facility] Fluticasone/Salmet yessi 1 puff 10/16/19 09:00 10/20/19 19:13 Advair Diskus 25 0-50 INHALATION Not Given BID RUSLAN Vitals/I&O/Wt Last Vital Signs Temp 100.8 F H 10/20/19 20:51 Pulse 97 10/21/19 09:30 Resp 16 10/21/19 09:42 BP 105/66 10/21/19 09:30 Pulse Ox 92 10/21/19 09:30 10/20/19 10/21/19 10/21/19 22:59 06:59 14:59 Intake Total 1518 / 2568.7 Output Total 945 / 945 448 / 1393 100 / 100 Balance 573 / 1623.7 -448 / 1175.7 -100 / -100 Physical Exam Const: COMMON NORMALS: no apparent distress GENERAL APPEARANCE: cooperative, comfortable and grossly edematous NUTRITIONAL APPEARANCE: obese centrally obese ORIENTATION/CONSCIOUSNESS: Yes other (Sedated) HENMT: COMMON NORMALS: normocephalic, head/scalp atraumatic and hearing grossly normal bilaterally HEAD & SCALP: normocephalic and atraumatic TEETH & GINGIVA: Yes poor dentition OTHER: Orally intubated Eye: COMMON NORMALS: PERRL, EOMs intact bilaterally and conjunctivae normal CONJUNCTIVA: Yes conjunctivae normal PUPIL: Yes PERRL Neck/C-Spine: COMMON NORMALS: full ROM GENERAL: Yes normal visual inspection and Yes trachea midline Chest: OTHER: -s/p CABG; binder in place, wound vac dressing over sternum, chest tubes in place, pacer wires Resp: COMMON NORMALS: normal respiratory effort, no retractions and no use of accessory muscles EFFORT & INSPECTION: Yes symmetric chest movement and No tachypneic AUSCULTATION: diminished lung sounds bilateral OTHER: -Orally intubated, currently on FiO2-40% on vent Cardio: COMMON NORMALS: regular rate, regular rhythm, S1 normal heart sound, S2 normal heart sound and no murmurs RATE: regular rate RHYTHM: regular rhythm HEART SOUNDS: S1 normal and S2 normal GI: COMMON NORMALS: normal to inspection, nondistended, normoactive bowel sounds, soft to palpation and non-tender PALPATION: Yes soft : BLADDER/KIDNEY EXAM: Yes catheter in place Catheter type (Female): urethral Extremity: COMMON NORMALS: normal to inspection, full ROM and no clubbing, cyanosis or edema; negative for no pedal edema OTHER: -multiple IV access including R IJ, femoral arterial line -incisions on LLE are clean/dry; no hematoma, no erythema, no drainage Neuro: COMMON NORMALS: moves all extremities, no focal motor deficits and no sensory deficits noted Psych: OTHER: -sedated Skin: COMMON NORMALS: no rashes or lesions noted, no jaundice, no petechiae and no mottling GENERAL SKIN EXAM: no rashes or lesions noted Urinary Catheter Management^: Bateman: Cath Placed During This Visit: no Urethral Indwelling: Yes Reason for Continuing Indwelling Catheter: Perioperative Use in Selected Surgeries Data : 10/21/19 03:00 10/21/19 03:00 Micro: Microbiology 10/17/19 18:25 Urine Culture - Final Urine,Clean Catch Escherichia coli A&P Assessment and plan (1) CAD (coronary artery disease), [place] coronary artery: -has known hx of multivessel CAD s/p CABG; POD # 1 -remains on vent support and sedation; wean when appropriate -continue to monitor chest tube output -daily ABG, CXR Status: Acute Qualifiers: Associated angina: with stable angina [place] vs. transplanted heart: [place] heart Qualified Code(s): I25.118 - Atherosclerotic heart disease of [place] coronary artery with other forms of angina pectoris Code(s): I25.10 - Atherosclerotic heart disease of [place] coronary artery without angina pectoris (2) NSTEMI (non-ST elevated myocardial infarction): -likely demand ischemia secondary to acute CHF exacerbation -presented with c/o chest pressure; alleviated with NTG -troponins with positive delta change of 34 over 6 hrs -management of CHF as noted below -KHLOE -on therapeutic Lovenox -continue BB, ASA, statin -recent cath showing multivessel CAD (total occlusion of circumflex, severe 80% LAD stenosis, 70% stenosis of diagonal, non-critical RCA stenosis); CABG done by Dr. Wilson (10/20) -cardiology consult appreciated Status: Acute Code(s): I21.4 - Non-ST elevation (NSTEMI) myocardial infarction (3) Combined systolic and diastolic congestive heart failure: -Echo (08/2019): EF=40%, G1DD, +RWMA, trace TR, mild -resume IV diuresis with Lasix, anasarca clinically; titrate as needed for optimal response. Has diuresed 5.9 L -imaging noted -[id number] -continue to monitor urine output; has Bateman catheter in place -supplemental oxygen as needed; continue to monitor respiratory status -VSS; continue to monitor -daily weights, monitor Is & Os -telemetry monitoring -EMILY kuo -replace lytes as needed Status: Acute Qualifiers: Heart failure chronicity: acute on chronic Qualified Code(s): I50.43 - Acute on chronic combined systolic (congestive) and diastolic (congestive) heart failure Code(s): I50.40 - Unspecified combined systolic (congestive) and diastolic (congestive) heart failure (4) Ischemic cardiomyopathy: -as noted above Status: Acute Code(s): I25.5 - Ischemic cardiomyopathy Additional A&P Information -Morbid obesity: BMI-35 kg/m2 -HTN; continue oral antihypertensives -reported hx of RA -Chronic smoker; recently had PFTs done in preparation for surgery; down to 6-7 cig/day -Hypothyroidism -hx of CVA -Chronic LE edema -NIDDM type II; last A1c-6.5; improved blood glucose control in anticipation of CABG. Continue accuchecks, ISS -Bronchitis; on Neb treatments, inhaled steroid inhaler; empiric doxycycline -Neb treatments as needed -no need for DVT ppx as on therapeutic Lovenox -fall precautions -Dispo: will need SNF placement -Code status: FULL code -continue ICU care s/p CABG Attestations Medical Necessity Statement*: Patient requires hospitalization for continued postop management status post CABG, remains on ventilator support and sedation. Time Spent in Patient Care: Greater than 35 minutes (>than 50% of time spent in counselling and/or direct pt care on unit). Critical Care Time: The high probability of a clinically significant, sudden or life threatening deterioration of the patient's [cardiovascular, respiratory] system(s) required my full and direct attention, intervention and personal management. The critical care time is as shown. This time is in addition to time spent performing any reported procedures but includes the following: [x] Data and vital sign review and interpretation [x] Patient assessment, examination and intervention [x] Documentation [x] Medication orders and management Critical Care Time (min): 30 Coding Level of Care Code Acute User Interface Artist for Danielg Fwd Exam Problem Focused Diagnoses CAD (coronary artery disease), [place] coronary artery I25.118 Associated angina: with stable angina [place] vs. transplanted heart: [place] heart NSTEMI (non-ST elevated myocardial infarction) I21.4 Combined systolic and diastolic congestive heart failure I50.43 Heart failure chronicity: acute on chronic Ischemic cardiomyopathy I25.5
--- NOTE | 2019-10-21 13:34 | PC.NURSE ---
estevan removed from the right groin. pressure held for approx. 15 minutes. dressing applied pt tolerated fair.
--- NOTE | 2019-10-21 13:47 | PC.PT ---
Nursing requests hold physical therapy, due to patient remains intubated and sedated, and probably will rest of the day, they will contact me otherwise
--- NOTE | 2019-10-21 15:00 | PC.NURSE ---
pt aggressive and attempting to pull out wires. redirection attempted. pt continue to thrash and attempt to remove lines including arterial line, central line/cordis, ET tube and chest tubes. Family at bedside to attempt to reorient with no success. Restraints applied.
--- NOTE | 2019-10-21 17:45 | PC.NURSE ---
despite restraints and this nurse at bedside the estevan to the right wrist became dislodged with thrashing and pulling against the restraints. pressure held and dressing applied. will closely monitor
[2019-10-21] MEDS: oxyCODONE-APAP 5-325 mg Tablet PO (20:19)
--- NOTE | 2019-10-21 20:55 | PC.RESP ---
Patient extubated to 5L nc, tolerated well
--- NOTE | 2019-10-21 20:56 | PC.NURSE ---
2034 extubated to 5 L nc with respiratory at bedside. Patient tolerated well. Informed Dr Wilson, verbal order to remove [place] and Cordis. Patient to remain 1:1 overnight with RN at bedside. Patient 94% SpO2
[2019-10-21 21:47] LABS: Anion Gap 12.7 (5-19); Blood Urea Nitrogen 28 mg/dL (8-23); Calcium 8.3 mg/dL (8.5-10.5); Carbon Dioxide 29 mmol/L (22-29); Chloride 115 mmol/L (98-107); Glucose 123 mg/dL (65-115); Osmolality Calculated 314 mOsm/kg (285-295); Potassium 3.7 mmol/L (3.5-5.1); Sodium 153 mmol/L (136-145)
[2019-10-21] MEDS: morphine 4 mg/mL SDV 1 mL 2 MG IVP (22:09)
[2019-10-21] MEDS: sodium chloride 0.45% 1,000 ML 75 ML IV (22:36)
--- NOTE | 2019-10-21 22:44 | PC.NURSE ---
Per Dr Wilson, One on One with RN at bedside post CABG
[2019-10-22] VITALS (31 sets, daily range): BP systolic 90–131; BP diastolic 52–86; PULSE 85–106; RESP 10–23; TEMP 36.3–36.8; O2SAT 85–100
[2019-10-22] MEDS: nitroglycerin drip 50 MG/250 ML PREMIX 12 MG IV (00:14)
[2019-10-22] MEDS: FUROsemide 10 mg/mL SDV 2mL 20 MG IVP ×2 (01:14→08:56)
--- NOTE | 2019-10-22 02:29 | PC.NURSE ---
Patient requires constant reminders of sternal precautions. Patient grabbing bed rails and trying to turn over. Using hands at side up hips to lift up. Patient currently unrestrained but will grab at pacer wires and chest tubes
[2019-10-22] MEDS: fentaNYL 50 mcg/mL INJ 2mL IVP (02:33)
[2019-10-22] MEDS: oxyCODONE-APAP 5-325 mg Tablet PO ×2 (04:49→12:41)
[2019-10-22] MEDS: ondansetron 2 mg/ML SDV 2 mL 4 MG IVP (05:04)
[2019-10-22 05:27] LABS: INR 1.13 (0.8-1.2)
[2019-10-22 05:37] LABS: Anion Gap 13.7 (5-19); Blood Urea Nitrogen 32 mg/dL (8-23); Calcium 8.8 mg/dL (8.5-10.5); Carbon Dioxide 29 mmol/L (22-29); Chloride 112 mmol/L (98-107); Glucose 100 mg/dL (65-115); Osmolality Calculated 309 mOsm/kg (285-295); Potassium 3.7 mmol/L (3.5-5.1); Sodium 151 mmol/L (136-145)
[2019-10-22 05:40] LABS: Basophils % 0.2 %; Eosinophils % 0.1 %; Hematocrit 29.4 % (37.0-47.0); Hemoglobin 8.9 g/dL (11.5-15.3); Lymphocytes # 1.1 10^3/uL (0.8-4.8); Lymphocytes % 11.2 %; Mean Corpuscular HGB Conc 30.3 g/dL (30.0-36.0); Mean Corpuscular Hemoglobin 28.8 pg (28.0-34.0); Mean Corpuscular Volume 95.1 fL (81-99); Mean Platelet Volume 11.2 fL (7.4-10.4); Monocytes % 9.7 %; Neutrophils # 7.9 10^3/uL (1.8-7.7); Neutrophils % 78.4 %; Nucleated Red Blood Cells % 0 %; Platelet Count 138 10^3/cmm (130-400); Red Blood Count 3.09 10^6/uL (4.1-5.3); Red Cell Distribution Width 17.1 % (12.1-15.1); White Blood Count 10.1 10^3/uL (4.0-10.0)
--- NOTE | 2019-10-22 06:00 | XR_ITS ---
WS: [id number] Portable AP upright chest, 10/22/2019 Clinical Data: Postop CABG day 2 Comparison: Portable chest, 10/21/2019 Findings: No nodules, masses or effusions are seen. The heart is mildly enlarged.. The pulmonary vasc ularity is not increased. No pneumonia or pneumothorax is seen. The endotracheal tube and nasogastric tube have been removed. The [place]-Jessica Jessica catheter has been removed. A small right internal jugular venous catheter, mediastinal tubes and left chest tube remain. There is minimal subsegmental atelect asis in the left upper lobe which has reduced slightly. Line sternotomy sutures and monitor leads are present. XR/XR chest 1V portable [id number] Impression: 1 satisfactory removal of multiple tubes. 2. Remaining tubes in satisfactory position. 3. No change in appearance of heart and lungs.
[2019-10-22] MEDS: metoprolol tartrate 25 mg Tablet PO ×2 (06:09→19:04)
--- NOTE | 2019-10-22 08:38 | P.PN_ITS ---
Subjective Subjective: Interval history: Postop day #2 status post CABG Extubated without difficulty. Still a bit confused though responding appropriate to questions and to commands. Vital signs are stable. Chest of output under 300 cc past 24 hours Volume status is still up and will need further diuresis and pulmonary toilet Vitals/I&O/Wt Last Vital Signs Temp 98.2 F 10/22/19 06:00 Pulse 95 10/22/19 07:58 Resp 14 10/22/19 07:46 BP 109/69 10/22/19 06:00 Pulse Ox 99 10/22/19 07:46 10/21/19 10/22/19 10/22/19 22:59 06:59 14:59 Intake Total 557.5 / 1657.5 481.75 / 2139.25 50 / 50 Output Total 490 / 1250 745 / 1994 0 / 0 Balance 67.5 / 407.5 -263.25 / 144.25 50 / 50 Physical Exam Chest: COMMONS NORMALS: inspection of chest normal (Wound VAC dressing in place. Associated wires and drains in place. Bra is intact) Resp: AUSCULTATION: diminished lung sounds Cardio: COMMON NORMALS: regular rate (Intermittent mild tachycardia), regular rhythm and S1 normal heart sound RATE: regular rate (Intermittent mild tachycardia) RHYTHM: regular rhythm HEART SOUNDS: S1 normal Urinary Catheter Management^: Bateman: Cath Placed During This Visit: no Urethral Indwelling: Yes Reason for Continuing Indwelling Catheter: Perioperative Use in Selected Faith rgeries Data : 10/22/19 05:00 10/22/19 05:00 A&P Assessment and plan (1) Status post aorto-coronary artery bypass graft: Postop day #2 status post CABG Will begin gentle diuresis today Out of bed in chair this afternoon CBC, BMP, chest x-ray in a.m. Greatly appreciate the expertise of our cardiology and hospitalist colleagues. Daily aspirin, beta-liat, statin Status: Acute Code(s): Z95.1 - Presence of aortocoronary bypass graft Attestations Medical Necessity Statement*: Postop day #2 status post CABG Coding Level of Care Code Acute Analytics Analyst for Chg Fwd Diagnoses Status post aorto-coronary artery bypass graft Z95.1
[2019-10-22] MEDS: atorvastatin 40 mg Tablet PO (08:56)
[2019-10-22] MEDS: aspirin 325 mg Tablet PO (08:56)
[2019-10-22] MEDS: losartan 50 mg Tablet PO (08:56)
[2019-10-22] MEDS: carvedilol 3.125 mg Tablet PO ×2 (08:56→19:05)
[2019-10-22] MEDS: chlorhexidine gluconate 0.12% Btl 473 mL 15 ML MUCOUS MEM (09:21)
[2019-10-22] MEDS: mupirocin oint 22 gm 1 APPLIC NASAL (09:22)
[2019-10-22 11:02] LABS: Glucose Point of Care 157 mg/dL (70-110)
--- NOTE | 2019-10-22 11:29 | PM.PN ---
Subjective Subjective: Interval history: Extubated without difficulty overnight had total urine output of 825 mL, chest tube output of 150 mL. Has a total negative fluid balance of about 5.3 L. Out of bed activity today. Case discussed earlier this morning with Dr. Wilson. Febrile with Tmax of 100.9F overnight, currently afebrile. Otherwise hemodynamically stable. Patient seen and examined, seems somnolent during my assessment earlier this morning. Needs significant amount of motivation to do any out of bed activity. She seems quite discouraged by her inability to use her arms as much as she is used to. Medications: Reviewed: Yes Medication Review Details: Current Medications Generic Name Dose Route Start Last Admin Trade Name Freq PRN Reason Stop Dose Admin Albuterol/Ipratrop ium 3 ml 10/16/19 02:20 10/17/19 13:40 Duoneb INHALATION 3 ml Q4H.RESPIRATORY P RN Administration SHORTNESS OF SHARMILA TH Aspirin 325 mg 10/16/19 04:28 10/22/19 08:56 Aspirin PO 325 mg DAILY RUSLAN Administration Atorvastatin Calci um 40 mg 10/16/19 09:00 10/22/19 08:56 Lipitor PO 40 mg DAILY RUSLAN Administration Bisacodyl 10 mg 10/18/19 21:00 10/19/19 01:30 Dulcolax PO 10 mg DAILY PRN Administration CONSTIPATION Carvedilol 3.125 mg 10/16/19 09:00 10/22/19 08:56 Coreg PO 3.125 mg BID RUSLAN Administration Chlorhexidine Gluc rodney 15 ml 10/21/19 09:00 10/22/19 09:21 Perigard MUCOUS MEM 15 ml BID RUSLAN Administration Fentanyl 50 mcg 10/20/19 18:08 10/22/19 02:33 Sublimaze IVP 50 mcg Q1H PRN Administration SEVERE PAIN Furosemide 40 mg 10/19/19 18:00 10/22/19 08:59 Lasix IVP Not Given BID RUSLAN Nitroglycerin/Dext javier 50 mg in 250 mls @ 0 mls/hr 10/20/19 18:15 10/22/19 06:[address] ip IV 0 mcg/min .Q0M RUSLAN 0 mls/hr Titration Protocol Per Protocol Sodium Chloride 1,000 mls @ 75 ml s/hr 10/20/19 18:15 10/22/19 02:38 Sodium Chloride 0.9% IV Not Given .[id number] RUSLAN Potassium Chloride 20 meq in 100 mls @ 50 mls/hr 10/21/19 22:24 10/22/19 06:08 K-Eligio Premix IV 50 mls/hr PRN PRN Administration Potassium 3.7-3.9 Insulin Aspart 0 unit 10/16/19 08:00 10/22/19 11:15 Novolog SUBCUT 4 unit TIDWM RUSLAN Administration Protocol Isosorbide Mononit rate 30 mg 10/17/19 16:00 10/22/19 06:00 Imdur PO Not Given QAM [facility] Losartan Potassium 50 mg 10/18/19 09:00 10/22/19 08:56 Cozaar PO 50 mg DAILY RUSLAN Administration Morphine Sulfate 2 mg 10/20/19 18:08 10/21/19 22:09 Morphine IVP 2 mg Q1H PRN Administration BREAKTHROUGH PAIN Mupirocin 1 applic 10/21/19 09:00 10/22/19 09:22 Bactroban NASAL 1 applic BID RUSLAN Administration Ondansetron HCl 4 mg 10/20/19 18:08 10/22/19 05:04 Zofran IVP 4 mg Q6H PRN Administration NAUSEA Oxycodone/Acetamin ophen 1 - 2 tab 10/20/19 18:08 10/22/19 04:49 Percocet 5-325 M g PO 2 tab Q6H PRN Administration MILD TO MODERATE PAIN Fluticasone/Salmet yessi 1 puff 10/16/19 09:00 10/22/19 08:00 Advair Diskus 25 0-50 INHALATION 1 puff BID RUSLAN Administration Vitals/I&O/Wt Last Vital Signs Temp 98.2 F 10/22/19 06:00 Pulse 88 10/22/19 08:00 Resp 15 10/22/19 09:00 BP 124/76 10/22/19 09:00 Pulse Ox 85 L 10/22/19 09:00 10/21/19 10/22/19 10/22/19 22:59 06:59 14:59 Intake Total 557.5 / 1657.5 481.75 / 2139.25 450 / 450 Output Total 490 / 1250 / 1994 Balance 67.5 / 407.5 -263.25 / 144.25 420 / 420 Physical Exam Const: COMMON NORMALS: no apparent distress GENERAL APPEARANCE: cooperative, comfortable, lethargic and grossly edematous NUTRITIONAL APPEARANCE: obese centrally obese ORIENTATION/CONSCIOUSNESS: Yes lethargic HENMT: COMMON NORMALS: normocephalic, head/scalp atraumatic and hearing grossly normal bilaterally HEAD & SCALP: normocephalic and atraumatic TEETH & GINGIVA: Yes poor dentition OTHER: Orally intubated Eye: COMMON NORMALS: PERRL, EOMs intact bilaterally and conjunctivae normal CONJUNCTIVA: Yes conjunctivae normal PUPIL: Yes PERRL Neck/C-Spine: COMMON NORMALS: full ROM GENERAL: Yes normal visual inspection and Yes trachea midline Chest: OTHER: -s/p CABG; binder in place, wound vac dressing over sternum, chest tubes in place, pacer wires Resp: COMMON NORMALS: normal respiratory effort, no retractions and no use of accessory muscles EFFORT & INSPECTION: Yes symmetric chest movement and No tachypneic AUSCULTATION: diminished lung sounds bilateral OTHER: - Cardio: COMMON NORMALS: regular rate, regular rhythm, S1 normal heart sound, S2 normal heart sound and no murmurs RATE: regular rate RHYTHM: regular rhythm HEART SOUNDS: S1 normal and S2 normal GI: COMMON NORMALS: normal to inspection, nondistended, normoactive bowel sounds, soft to palpation and non-tender PALPATION: Yes soft : BLADDER/KIDNEY EXAM: Yes catheter in place Catheter type (Female): urethral Extremity: COMMON NORMALS: normal to inspection, full ROM and no clubbing, cyanosis or edema; negative for no pedal edema OTHER: -multiple IV access including R IJ, femoral arterial line -incisions on LLE are clean/dry; no hematoma, no erythema, no drainage Neuro: COMMON NORMALS: moves all extremities, no focal motor deficits and no sensory deficits noted SENSORIUM/ORIENTATION: Yes lethargic Psych: COMMON NORMALS: mental status grossly normal, thought process normal, cooperative, affect normal and speech normal SPEECH: Yes normal speech THOUGHT PROCESS: normal thought process OTHER: -sedated Skin: COMMON NORMALS: no rashes or lesions noted, no jaundice, no petechiae and no mottling GENERAL SKIN EXAM: no rashes or lesions noted Urinary Catheter Management^: Bateman: Cath Placed During This Visit: no Urethral Indwelling: Yes Reason for Continuing Indwelling Catheter: Perioperative Use in Selected Surgeries Data : 10/22/19 05:00 10/22/19 05:00 A&P Assessment and plan (1) CAD (coronary artery disease), [place] coronary artery: -has known hx of multivessel CAD s/p CABG; POD # 2 -off vent support and sedation; extubated overnight -continue to monitor chest tube output -daily CXR unchanged Status: Acute Qualifiers: Associated angina: with stable angina [place] vs. transplanted heart: [place] heart Qualified Code(s): I25.118 - Atherosclerotic heart disease of [place] coronary artery with other forms of angina pectoris Code(s): I25.10 - Atherosclerotic heart disease of [place] coronary artery without angina pectoris (2) NSTEMI (non-ST elevated myocardial infarction): -likely demand ischemia secondary to acute CHF exacerbation -presented with c/o chest pressure; alleviated with NTG -troponins with positive delta change of 34 over 6 hrs -management of CHF as noted below -KHLOE -on therapeutic Lovenox -continue BB, ASA, statin -recent cath showing multivessel CAD (total occlusion of circumflex, severe 80% LAD stenosis, 70% stenosis of diagonal, non-critical RCA stenosis); CABG done by Dr. Wilson (10/20) -cardiology consult appreciated Status: Acute Code(s): I21.4 - Non-ST elevation (NSTEMI) myocardial infarction (3) Combined systolic and diastolic congestive heart failure: -Echo (08/2019): EF=40%, G1DD, +RWMA, trace TR, mild -resume IV diuresis with Lasix, anasarca clinically; titrate as needed for optimal response. Has diuresed 5.3 L -imaging noted -[id number] -continue to monitor urine output; has Bateman catheter in place -supplemental oxygen as needed; continue to monitor respiratory status -VSS; continue to monitor -daily weights, monitor Is & Os -telemetry monitoring -EMILY kuo -replace lytes as needed Status: Acute Qualifiers: Heart failure chronicity: acute on chronic Qualified Code(s): I50.43 - Acute on chronic combined systolic (congestive) and diastolic (congestive) heart failure Code(s): I50.40 - Unspecified combined systolic (congestive) and diastolic (congestive) heart failure (4) Ischemic cardiomyopathy: -as noted above Status: Acute Code(s): I25.5 - Ischemic cardiomyopathy Additional A&P Information -Morbid obesity: BMI-35 kg/m2 -HTN; continue oral antihypertensives -reported hx of RA -Chronic smoker; recently had PFTs done in preparation for surgery; down to 6-7 cig/day -Hypothyroidism -hx of CVA -Chronic LE edema -NIDDM type II; last A1c-6.5; improved blood glucose control in anticipation of CABG. Continue accuchecks, ISS -Bronchitis; on Neb treatments, inhaled steroid inhaler; empiric doxycycline -Neb treatments as needed -no need for DVT ppx as on therapeutic Lovenox -fall precautions -Dispo: will need SNF placement -Code status: FULL code -continue ICU care s/p CABG Attestations Medical Necessity Statement*: Patient requires hospitalization for continued post-op care s/p CABG, extubated overnight. Time Spent in Patient Care: Greater than 35 minutes (>than 50% of time spent in counselling and/or direct pt care on unit). Coding Level of Care Code Acute Head Gauge Unit Operator for Danielg Fwd Exam Problem Focused Diagnoses CAD (coronary artery disease), [place] coronary artery I25.118 Associated angina: with stable angina [place] vs. transplanted heart: [place] heart NSTEMI (non-ST elevated myocardial infarction) I21.4 Combined systolic and diastolic congestive heart failure I50.43 Heart failure chronicity: acute on chronic Ischemic cardiomyopathy I25.5
[2019-10-22 15:05] LABS: Blood Gas Allen Test Pos; Blood Gas Sample Type Arterial; Carboxyhemoglobin 1.1 %THgb (0.4-20.1); HGB O2 Sat 98.5 % (95-100); Methemoglobin 0.8 % (0.4-1.5)
[2019-10-22 15:05] LABS: Blood Gas Allen Test Pos; Blood Gas Sample Type Arterial; Carboxyhemoglobin 1.3 %THgb (0.4-20.1); HGB O2 Sat 98.3 % (95-100); Ionized Calcium Level - ABG 1.2 mmol/L (1.1-1.4); Methemoglobin 0.8 % (0.4-1.5)
[2019-10-22 15:05] LABS: Blood Gas Allen Test Pos; Blood Gas Sample Type Arterial; Carboxyhemoglobin 1.1 %THgb (0.4-20.1); HGB O2 Sat 98.7 % (95-100); Methemoglobin 0.7 % (0.4-1.5)
[2019-10-22 15:05] LABS: Blood Gas Allen Test Pos; Blood Gas Sample Type Arterial; HGB O2 Sat 99.4 % (95-100)
[2019-10-22 15:05] LABS: Blood Gas Allen Test Pos; Blood Gas Sample Type Arterial; Carboxyhemoglobin 1.1 %THgb (0.4-20.1); HGB O2 Sat 98.4 % (95-100); Methemoglobin 0.9 % (0.4-1.5)
[2019-10-22 15:05] LABS: ABG PCO2 39.8 mmHg (35-45); Arterial Blood Gas Hematocrit 28.8 % (37-47); Base Excess ABG -0.3 mmol/L (-2.0-2.0); Blood Gas Allen Test Pos; Blood Gas Sample Type Arterial; HCO3 ABG 24.5 mmol/L (22-26); Methemoglobin 0.5 % (0.4-1.5); Potassium Level - ABG 5.4 mmol/L (3.5-5.0); Total Hemoglobin 9.4 g/dL (12-16)
[2019-10-22 15:05] LABS: Blood Gas Allen Test Pos; Blood Gas Sample Type Arterial; HGB O2 Sat 98.9 % (95-100); Methemoglobin 0.5 % (0.4-1.5)
[2019-10-22 15:05] LABS: ABG PCO2 42.8 mmHg (35-45); ABG PH Result 7.38 (7.35-7.45); Arterial Blood Gas Hematocrit 28.3 % (37-47); Base Excess ABG -0.3 mmol/L (-2.0-2.0); Blood Gas Allen Test Pos; Blood Gas Sample Type Arterial; Carboxyhemoglobin 0.9 %THgb (0.4-20.1); HGB O2 Sat 99.3 % (95-100); Methemoglobin 0.3 % (0.4-1.5); Oxygen Saturation ABG 99.7; Potassium Level - ABG 5.1 mmol/L (3.5-5.0); Total Hemoglobin 9.2 g/dL (12-16)
[2019-10-22 15:05] LABS: Blood Gas Allen Test Pos; Blood Gas Sample Type Arterial; Carboxyhemoglobin 1.1 %THgb (0.4-20.1); HGB O2 Sat 98.9 % (95-100); Methemoglobin 0.5 % (0.4-1.5)
[2019-10-22 15:05] LABS: ABG PCO2 43.8 mmHg (35-45); ABG PH Result 7.36 (7.35-7.45); Arterial Blood Gas Hematocrit 24.3 % (37-47); Blood Gas Allen Test Pos; Blood Gas Sample Type Arterial; HCO3 ABG 24.5 mmol/L (22-26); HGB O2 Sat 98.4 % (95-100); Methemoglobin 0.9 % (0.4-1.5); Potassium Level - ABG 6.1 mmol/L (3.5-5.0); Total Hemoglobin 7.9 g/dL (12-16)
[2019-10-22 15:06] LABS: Blood Gas Allen Test Pos; Blood Gas Sample Type Arterial; Carboxyhemoglobin 1.2 %THgb (0.4-20.1); HGB O2 Sat 98.9 % (95-100); Methemoglobin 0.5 % (0.4-1.5)
--- NOTE | 2019-10-22 15:37 | PC.CHAP ---
Pastoral Care Encounter/Spiritual Assessment Type of Contact [] Declined resource development manager visit [] Patient/Family/Request visit [] Outpatient visit [] Follow-up visit [] Physician referral [] Code/Alert [x] Routine visit [] Staff referral [] Actively dying [] Patient sleeping [] Family support [] [] Out of room [] Palliative care [] [x] Receiving care in room [] Pre-surgical visit [] Trauma [] Long length of stay [x] ICU visit [] Other: Relational/Emotional Strength [] Patient feels connected with others/family/visitors/staff [] Distress [] Loneliness/isolation [] Abandonment Spirituality of Patient [] Person of Dee [] Attends Nondenominational of their Dee [] Believes in Prayer [] Reads Bible or Baptism materials [] There are Spiritual issues to be addressed Medical Associate Interventions [] Prayer [] Active listening [] Non-anxious presence [] Spiritual/emotional support [] Crisis/trauma care [] Spiritual counseling [] Bereavement support [] Provided bereavement packet [] Provided Bible/devotional materials [] Provided toy/stuffed animal, coloring book to patient or family member [] Provided Communion [] Anointing/[place] [] Salvation [] Completed spiritual assessment [] Other: Impact on Illness or Injury [] Angry [] Fearful [] Anxious [] Often cries [] Exhaustion [] Unable to work [] Unable to attend shinto [] Unable to walk/stand [] Unable to read [] Unable to drive [] Unable to eat/drink [] Unable to sleep [] Unable to be with family [] Patient intubated [] Other: Summary Follow up visit is requested Time spent with patient
[2019-10-22] MEDS: sodium chloride 0.45% 1,000 ML 50 ML IV (15:59)
[2019-10-22 17:13] LABS: Glucose Point of Care 118 mg/dL (70-110)
[2019-10-22 17:13] LABS: Glucose Point of Care 104 mg/dL (70-110)
[2019-10-22 17:13] LABS: Glucose Point of Care 124 mg/dL (70-110)
[2019-10-22 17:13] LABS: Glucose Point of Care 123 mg/dL (70-110)
[2019-10-22 17:13] LABS: Glucose Point of Care 90 mg/dL (70-110)
[2019-10-22 17:13] LABS: Glucose Point of Care 110 mg/dL (70-110)
[2019-10-22 17:13] LABS: Glucose Point of Care 114 mg/dL (70-110)
[2019-10-22 17:13] LABS: Glucose Point of Care 122 mg/dL (70-110)
[2019-10-22 17:13] LABS: Glucose Point of Care 133 mg/dL (70-110)
[2019-10-22 17:13] LABS: Glucose Point of Care 139 mg/dL (70-110)
[2019-10-22 17:13] LABS: Glucose Point of Care 127 mg/dL (70-110)
[2019-10-22 17:13] LABS: Glucose Point of Care 131 mg/dL (70-110)
[2019-10-22 17:13] LABS: Glucose Point of Care 129 mg/dL (70-110)
[2019-10-22 17:13] LABS: Glucose Point of Care 122 mg/dL (70-110)
[2019-10-22 17:13] LABS: Glucose Point of Care 146 mg/dL (70-110)
[2019-10-22 17:13] LABS: Glucose Point of Care 130 mg/dL (70-110)
[2019-10-22 17:13] LABS: Glucose Point of Care 124 mg/dL (70-110)
[2019-10-22 17:13] LABS: Glucose Point of Care 117 mg/dL (70-110)
[2019-10-22 17:13] LABS: Glucose Point of Care 98 mg/dL (70-110)
[2019-10-22 17:13] LABS: Glucose Point of Care 124 mg/dL (70-110)
[2019-10-22 17:13] LABS: Glucose Point of Care 134 mg/dL (70-110)
[2019-10-22 17:13] LABS: Glucose Point of Care 118 mg/dL (70-110)
[2019-10-22 17:13] LABS: Glucose Point of Care 153 mg/dL (70-110)
[2019-10-22 17:13] LABS: Glucose Point of Care 110 mg/dL (70-110)
[2019-10-22 17:13] LABS: Glucose Point of Care 139 mg/dL (70-110)
[2019-10-22 17:13] LABS: Glucose Point of Care 127 mg/dL (70-110)
[2019-10-22 17:13] LABS: Glucose Point of Care 132 mg/dL (70-110)
[2019-10-22 17:13] LABS: Glucose Point of Care 106 mg/dL (70-110)
[2019-10-22 17:13] LABS: Glucose Point of Care 134 mg/dL (70-110)
[2019-10-22 17:13] LABS: Glucose Point of Care 126 mg/dL (70-110)
[2019-10-22 17:13] LABS: Glucose Point of Care 115 mg/dL (70-110)
[2019-10-22] MEDS: FUROsemide 10 mg/mL SDV 4mL 40 MG IVP (19:04)
--- NOTE | 2019-10-22 20:00 | PC.NURSE ---
Pt refusing to follow sternal precautions. Pushing self down in the bed with hands then grabbing bedrails by head to attempt to pull self back up. When reminded of sternal precautions states yeah I know but I can't help it Observed very closely and frequent reinstruction given
--- NOTE | 2019-10-22 20:04 | PM.PN ---
Subjective Subjective: Interval history: Patient got extubated today. Overall stable. Medications: Reviewed: Yes Medication Review Details: Current Medications Generic Name Dose Route Start Last Admin Trade Name Freq PRN Reason Stop Dose Admin Albuterol/Ipratrop ium 3 ml 10/16/19 02:20 10/17/19 13:40 Duoneb INHALATION 3 ml Q4H.RESPIRATORY P RN Administration SHORTNESS OF SHARMILA TH Aspirin 325 mg 10/16/19 04:28 10/22/19 08:56 Aspirin PO 325 mg DAILY RUSLAN Administration Atorvastatin Calci um 40 mg 10/16/19 09:00 10/22/19 08:56 Lipitor PO 40 mg DAILY RUSLAN Administration Bisacodyl 10 mg 10/18/19 21:00 10/19/19 01:30 Dulcolax PO 10 mg DAILY PRN Administration CONSTIPATION Carvedilol 3.125 mg 10/16/19 09:00 10/22/19 08:56 Coreg PO 3.125 mg BID RUSLAN Administration Chlorhexidine Gluc rodney 15 ml 10/21/19 09:00 10/22/19 09:21 Perigard MUCOUS MEM 15 ml BID RUSLAN Administration Fentanyl 50 mcg 10/20/19 18:08 10/22/19 02:33 Sublimaze IVP 50 mcg Q1H PRN Administration SEVERE PAIN Furosemide 40 mg 10/19/19 18:00 10/22/19 08:59 Lasix IVP Not Given BID [facility] Nitroglycerin/Dext javier 50 mg in 250 mls @ 0 mls/hr 10/20/19 18:15 10/22/19 06:[address] ip IV 0 mcg/min .Q0M RUSLAN 0 mls/hr Titration Protocol Per Protocol Sodium Chloride 1,000 mls @ 75 ml s/hr 10/20/19 18:15 10/22/19 02:38 Sodium Chloride 0.9% IV Not Given .[id number] [facility] Potassium Chloride 20 meq in 100 mls @ 50 mls/hr 10/21/19 22:24 10/22/19 06:08 K-Eligio Premix IV 50 mls/hr PRN PRN Administration Potassium 3.7-3.9 Insulin Aspart 0 unit 10/16/19 08:00 10/22/19 11:15 Novolog SUBCUT 4 unit TIDWM RUSLAN Administration Protocol Isosorbide Mononit rate 30 mg 10/17/19 16:00 10/22/19 06:00 Imdur PO Not Given QAM RUSLAN Losartan Potassium 50 mg 10/18/19 09:00 10/22/19 08:56 Cozaar PO 50 mg DAILY RUSLAN Administration Morphine Sulfate 2 mg 10/20/19 18:08 10/21/19 22:09 Morphine IVP 2 mg Q1H PRN Administration BREAKTHROUGH PAIN Mupirocin 1 applic 10/21/19 09:00 10/22/19 09:22 Bactroban NASAL 1 applic BID RUSLAN Administration Ondansetron HCl 4 mg 10/20/19 18:08 10/22/19 05:04 Zofran IVP 4 mg Q6H PRN Administration NAUSEA Oxycodone/Acetamin ophen 1 - 2 tab 10/20/19 18:08 10/22/19 04:49 Percocet 5-325 M g PO 2 tab Q6H PRN Administration MILD TO MODERATE PAIN Fluticasone/Salmet yessi 1 puff 10/16/19 09:00 10/22/19 08:00 Advair Diskus 25 0-50 INHALATION 1 puff BID RUSLAN Administration Vitals/I&O/Wt Last Vital Signs Temp 97.4 F L 10/22/19 14:00 Pulse 93 10/22/19 19:00 Resp 16 10/22/19 19:00 BP 105/61 10/22/19 19:00 Pulse Ox 98 10/22/19 18:00 10/22/19 10/22/19 10/22/19 06:59 14:59 22:59 Intake Total 481.75 / 2139.25 1050 / 1050 300 / 1350 Output Total 745 / 1995 100 / 100 635 / 735 Balance -263.25 / 144.25 950 / 950 -335 / 615 Physical Exam Narrative: EXAM NARRATIVE: GENERAL: Patient Is extubated, open her eyes. NECK: No jugular vein distension. HEENT: No cyanosis. No icterus. No pallor. HEART: Regular S1 and S2. No murmur, rub or gallop. LUNGS: Clear bilaterally. ABDOMEN: Mildly distended. No bowel sounds CENTRAL NERVOUS SYSTEM: Patient open her eyes on verbal command. Urinary Catheter Management^: Bateman: Cath Placed During This Visit: no Urethral Indwelling: Yes Reason for Continuing Indwelling Catheter: Perioperative Use in Selected Surgeries Data : 10/22/19 05:00 10/22/19 05:00 A&P Assessment and plan (1) Status post aorto-coronary artery bypass graft: Status post CABG date 3, steadily improving. Patient was extubated today. Coreg has been started back. Continue Lasix 40 mg IV daily. Status: Acute Code(s): Z95.1 - Presence of aortocoronary bypass graft Attestations Medical Necessity Statement*: Patient Requires continuation of hospitalization for above defined get Coding Level of Care Code Established Pt Acute Philosophy Professor for Chg Fwd Patient Type Established History Expanded Problem Focused Exam Expanded Problem Focused Medical Decision Making Moderate Complexity Diagnoses Status post aorto-coronary artery bypass graft Z95.1
[2019-10-22] MEDS: acetaminophen 325 mg Tablet 650 MG PO (23:01)
[2019-10-23] VITALS (7 sets, daily range): BP systolic 125–134; BP diastolic 74–85; PULSE 87–92; RESP 14–20; O2SAT 97–99
--- NOTE | 2019-10-23 04:47 | PC.NURSE ---
Addendum entered by Lucina Damon, RN 10/23/19 07:46: Patient found to have decreased responsiveness but with continued spontaneous movement of all extremities. Heart rate 53 and blood pressure of 134/54. TPM to epicardial wires turned on due to sudden bradycardia Dr Benitez paged urgently to room and the decision was made to intubate the patient due to decreased resp effort and altered level of consciousness. Dr Elkins notified of patient sudden decline and increase of CT output of 250 ml (total this shift) Original Note: Pt yelled out loudly once and nursing staff reported immediately to room
[2019-10-23] MEDS: midazolam 1 mg/mL INJ 2 mL 2 MG IVP (04:50)
[2019-10-23] MEDS: succinylcholine 20 mg/mL SDV 10mL 200 MG IVP (04:50)
--- NOTE | 2019-10-23 04:55 | PC.NURSE ---
0454 patient found to be pulseless. PEA arrest. See code blue record. Family and Dr Elkins notified Pt pronounced at 0526 Family and [facility] aware. Dr Elkins and Dr Benitez at bedside.
[2019-10-23 05:40] LABS: Glucose Point of Care 133 mg/dL (70-110)
--- NOTE | 2019-10-23 05:53 | P.PNCC_ITS ---
Critical Care Event Note Critical Care Event The high probability of a clinically significant, sudden or life threatening deterioration of the patient's cardiac system(s) required my full and direct attention, intervention and personal management. The critical care time is as shown. This time is in addition to time spent performing any reported procedures but includes the following: [x] Data and vital sign review and interpretation [x] Patient assessment, examination and intervention [x] Documentation [x] Medication orders and management Called emergently to the ICU for patient having an acute clinical change. She had been talking with staff and then suddenly became less responsive. I arrived within a minute or so. Blood sugar was in the 130s. Patient was minimally responsive at that point in time, diaphoretic and very pale. She had a pulse with heart rate in the 100s. Blood pressures were 130s systolic. She had an agonal respiratory pattern, however. Nursing staff suctioned a large amount of secretions from her mouth and more providing oxygen. She had a couple of 100 ml of blood noted in the Pleuravac. Decision was made to proceed with intubation. Patient was intubated with an 8.0 ET tube by me without difficulty using glide scope. Tube was visualized passing through the cords with positive color change. And secured at 23 at the lip. A short while later patient lost pulse and blood pressure. She had a paced rhythm at the time consistent with clinical PEA. Chest compressions were immediately started. Dr. Wilson was simultaneously called. Patient received high-quality CPR and a total of 5 doses of epinephrine, followed by initiation of an epinephrine drip. Fluids were wide opened, including warm fluids. After Dr. Wilson arrived, he proceeded to open the chest. Cardiac massage was then instituted. Patient had blood noted within the chest cavity. Dr. Wilson was able to identify a small tear in the aorta near an area identified as fragile during surgery. Patient eventually was noted to be in ventricular fibrillation. She received internal defibrillation x2 without return of perfusing rhythm. Patient was ultimately pronounced at 4:26 AM. With the increased output from chest tubes noted prior to this event, it is surmised that patient had had a slow leak from the aorta, eventually reaching tampanode and the subsequent cardiac arrest. Sternal incision was reapproximated by Dr. Wilson. The OR team had been standing by in the event patient was able to make it back to surgery. Emergency issue blood had been obtained but was not administered. Family was notified and they are on the way in from [place]. Critical Care Time Critical Care Time: Code activated: Yes Critical Care Time (min): 65 Procedures Intubation Sedative: etomidate Mg given: 20 Paralytic: succinylcholine Mg given: 200 Laryngoscope: fiber optic video scope (Initially attempted with a MAC 4 but quickly switched to the fiberoptic scope) ET tube size: 8 ET tube uncuffed: No Tube secured depth (cm): 23 Tube secured location: lips Tube placement confirmation: visualized tube passing through cords, equal breath sounds bilaterally and color change noted Additional comments: Thick secretions were suctioned from the ET tube a few minutes after intubation Coding Level of Care Code Acute Associate Software Developer for Usman Moss
--- NOTE | 2019-10-23 06:28 | P.DN_ITS ---
Pronouncement Note Date and Time of Date of : 10/23/19 Time of : 04:26 Diagnoses/Contributing Factors (1) Status post aorto-coronary artery bypass graft: (2) Ischemic cardiomyopathy: (3) Type 2 diabetes mellitus: (4) CAD (coronary artery disease), [place] coronary artery: Additional Details See critical care note for details. Patient had an acute cardiopulmonary arrest secondary to likely tamponade. She was found to have a small tear in her aorta at a site already known to be quite fragile. Cause of was secondary to this tear in the aorta. Additional Data Confirmation of : no pulse, no respirations, no heart sounds and pupils fixed and dilated Family: contacted Additional persons at bedside: nursing staff Attending physician: Elba Chavez MD Attending/PCP notified?: Attending will be notified Was code activated?: Yes Autopsy requested?: No Advance directives?: No Hospice patient?: No
--- NOTE | 2019-10-23 09:32 | PC.SOCIAL ---
went to give IM and noted pt has . call placed to [facility] to disregard referral if it was received. spoke with Roberta.
--- NOTE | 2019-10-23 09:38 | PC.CHAP ---
Pastoral Care Encounter/Spiritual Assessment Type of Contact [] Declined legal services professional visit [] Patient/Family/Request visit [] Outpatient visit [] Follow-up visit [] Physician referral [] Code/Alert [x] Routine visit [] Staff referral [] Actively dying [] Patient sleeping [] Family support [x] [] Out of room [] Palliative care [] [] Receiving care in room [] Pre-surgical visit [] Trauma [] Long length of stay [x] ICU visit [] Other: Relational/Emotional Strength [] Patient feels connected with others/family/visitors/staff [] Distress [] Loneliness/isolation [] Abandonment Spirituality of Patient [] Person of Dee [] Attends Jehovah[employer] Witness of their Dee [] Believes in Prayer [] Reads Bible or Tenriism materials [] There are Spiritual issues to be addressed Ensemble Member Interventions [] Prayer [] Active listening [] Non-anxious presence [] Spiritual/emotional support [] Crisis/trauma care [] Spiritual counseling [] Bereavement support [] Provided bereavement packet [] Provided Bible/devotional materials [] Provided toy/stuffed animal, coloring book to patient or family member [] Provided Communion [] Anointing/[place] [] Salvation [x] Completed spiritual assessment [] Other: Impact on Illness or Injury [] Angry [] Fearful [] Anxious [] Often cries [] Exhaustion [] Unable to work [] Unable to attend amish [] Unable to walk/stand [] Unable to read [] Unable to drive [] Unable to eat/drink [] Unable to sleep [] Unable to be with family [] Patient intubated [] Other: Summary [place] stayed with granddaughter. Patient passed approx 4am . Time spent with patient 20min
--- NOTE | 2019-10-23 09:51 | PC.NURSE ---
Patient transported to [facility] at [facility] contacted.
--- NOTE | 2019-10-23 10:11 | P.DES_ITS ---
Discharge Providers DDS Date of Admission: 10/16/19 02:17 Date Summary Completed: 10/23/19 Attending Provider at Admission: Rajendra Will MD Time of : 04:26 Attending Provider at Discharge: Elba Chavez MD Primary Care Provider: Danielle Day DS Diagnoses Hospital Diagnoses (1) Status post aorto-coronary artery bypass graft: Problem details: -s/p CABG; done on 10/20 -had been noted to have several fragile areas of her aorta during the surgery requiring repair (2) Ischemic cardiomyopathy: Problem details: -has known hx of multivessel CAD s/p CABG; POD # 3 -off vent support and sedation; extubated then re-intubated overnight due to hypoxia -continue to monitor chest tube output -daily CXR unchanged (3) Type 2 diabetes mellitus: Qualifiers: Diabetes mellitus prison insulin use: without medical terminologist use Diabetes mellitus complication status: with other specified complication Qualified Code(s): E11.69 - Type 2 diabetes mellitus with other specified complication (4) CAD (coronary artery disease), [place] coronary artery: Problem details: -likely demand ischemia secondary to acute CHF exacerbation -presented with c/o chest pressure; alleviated with NTG -troponins with positive delta change of 34 over 6 hrs -management of CHF as noted below -KHLOE -on therapeutic Lovenox -continue BB, ASA, statin -recent cath showing multivessel CAD (total occlusion of circumflex, severe 80% LAD stenosis, 70% stenosis of diagonal, non-critical RCA stenosis); CABG done by Dr. Wilson (10/20) -cardiology consult appreciated Qualifiers: [place] vs. transplanted heart: [place] heart Associated angina: with stable angina Qualified Code(s): I25.118 - Atherosclerotic heart disease of [place] coronary artery with other forms of angina pectoris (5) Combined systolic and diastolic congestive heart failure: Problem details: -Echo (08/2019): EF=40%, G1DD, +RWMA, trace TR, mild -resume IV diuresis with Lasix, anasarca clinically; titrate as needed for optimal response. Has diuresed 5.3 L -imaging noted -[id number] -continue to monitor urine output; has Bateman catheter in place -supplemental oxygen as needed; continue to monitor respiratory status -VSS; continue to monitor -daily weights, monitor Is & Os -telemetry monitoring -EMILY kuo -replace lytes as needed Qualifiers: Heart failure chronicity: acute on chronic Qualified Code(s): I50.43 - Acute on chronic combined systolic (congestive) and diastolic (congestive) heart failure Other Contributing Factors/Diagnoses -Morbid obesity: BMI-35 kg/m2 -HTN; continue oral antihypertensives -reported hx of RA -Chronic smoker; recently had PFTs done in preparation for surgery; down to 6-7 cig/day -Hypothyroidism -hx of CVA -Chronic LE edema -Bronchitis; on Neb treatments, inhaled steroid inhaler; empiric doxycycline Reason for Visit Reason for Visit: Reason For Visit: CHEST PAIN Summary Date and Time of : Date of : 10/23/19 Time of : 04:26 Summary: Summary: Patient had initially been admitted to ICU secondary to NSTEMI and acute CHF exacerbation. She has known ischemic cardiomyopathy and was undergoing work-up for CABG. Case was discussed with cardiology and with Dr. Wilson who agreed to proceed with CABG once patient was medically optimized. Patient was diuresed and treated for bronchitis and once medically stable had her bypass done on 10/20. Surgery was somewhat complicated with noted fragility along her aorta requiring repair at multiple points. She was then returned to ICU for postop recovery. She was able to be extubated on 10/22 and we were working on increasing her functional capacity as part of her postop recovery. Unfortunately overnight patient decompensated and was noted to be less responsive. My colleague Dr. Benitez was contacted and immediately assessed the patient. She was subsequently reintubated and unfortunately went into cardiac arrest. Dr. Wilson was contacted and on his arrival reopened her chest and patient was found to have an aortic tear with noted blood in her chest cavity. Despite CPR, several doses of epinephrine and appropriate oxygenation patient secondary to tamponade from a slow aortic leak. Additional Data: Confirmation of as documented by pronouncing clinician: no pulse, no respirations, no heart sounds and pupils fixed and dilated Family: contacted Additional persons at bedside: nursing staff Was code activated?: Yes Autopsy requested?: No Advance directives?: No Hospice patient?: No Discharge Plan Discharge Patient Disposition: Condition: Stable Prescriptions: No Action isosorbide mononitrate 30 mg tablet extended release 24 hr 30 mg PO QAM RF: 0 carvedilol 3.125 mg tablet 3.125 mg PO BID RF: 0 losartan 50 mg tablet 50 mg PO BID RF: 0 ibuprofen 200 mg capsule 200 mg PO Q12H PRN (Reason: Pain) RF: 0 levothyroxine 150 mcg capsule 150 mcg PO ONCE RF: 0 aspirin 325 mg tablet 163 mg PO ONCE RF: 0 atorvastatin 40 mg tablet 40 mg PO DAILY RF: 0 albuterol sulfate 0.63 mg/3 mL Solution For Nebulization 0.63 mg INHALATION Q6H RF: 0 glipizide 10 mg Tablet 10 mg PO DAILY RF: 0 alprazolam 0.25 mg tablet 0.25 mg PO BID RF: 0 Flovent HFA 44 mcg/actuation HFA aerosol inhaler 44 mcg INHALATION BID RF: 0 mupirocin 2 % Ointment 1 applic TOPICAL BID RF: 0 furosemide 20 mg tablet 60 mg PO DAILY RF: 0 metformin 500 mg tablet 500 mg PO BID RF: 0 Probable Cause of Probable cause of : Cardiac arrest DS Attestations Time Spent in /Discharge Care*: greater than 30 min Quality - AMI: AMI present?: No Quality - Stroke: CVA present?: No Symptom Onset Unknown: No Quality - VTE: VTE present?: No Deep Vein Thrombosis/Pulmonary Embolism Present on Admission: No Coding Level of Care Code Acute [facility] Fwd Diagnoses Status post aorto-coronary artery bypass graft Z95.1 Ischemic cardiomyopathy I25.5 Type 2 diabetes mellitus E11.69 Diabetes mellitus medical terminologist insulin use: without medical terminologist use Diabetes mellitus complication status: with other specified complication CAD (coronary artery disease), [place] coronary artery I25.118 [place] vs. transplanted heart: [place] heart Associated angina: with stable angina Combined systolic and diastolic congestive heart failure I50.43 Heart failure chronicity: acute on chronic
--- NOTE | 2019-10-23 10:29 | PC.NURSE ---
Pt transferred to [facility] at 0947, MTS updated. MTS waiting for labs inorder to complete transfer process. Lab notified.
--- NOTE | 2019-10-24 16:48 | PM.MISC ---
Miscellaneous Note Purpose of Documentation: Acute exploratory sternotomy in the ICU Note: Ms. Hoffmann is a 73-year-old obese female who is on the second postoperative day status post CABG. Her intraoperative course was complicated by tear in the anterior aortic root area which required extensive repair utilizing Prolene suture, felt strips, and BioGlue. This required reinstitution of cardiopulmonary bypass on 2 separate occasions after initial separation in order to allow for successful repair. She did remarkably well in the early postoperative period, though we delayed extubation to allow for meticulous blood pressure control in the first 24 hours. I was contacted by the ICU in the early hours of October 23 after she developed bradycardia and labored respirations. Chest tube output had noted to increase over the prior hour of approximately 300 cc. During assessment by Dr. Benitez from the hospitalist service, she became more critical, temporary pacing was initiated through the previously placed wires, and I was consulted. Upon my arrival, full CPR was in progress and she had been orally intubated by Dr. Benitez. I was concerned of acute to have a non-, given the known history of the substantial difficulties in repairing her proximal ascending aorta. Urgent and rapid sternotomy was performed and upon entering the chest, blood was encountered. I rapidly assessed the proximal aorta which I do feel is the area of most probable source for the bleeding. Throughout this process, volume and chemical resuscitation was in progress and I performed open cardiac massage. However, despite an extensive period, there was no meaningful return of cardiac activity including the use of internal paddles for defibrillation. Family was made aware of this sudden drastic turn immediately as it occurred and we were informed were in route from [facility]. Also noted was some disruption of the proximal graft to the OMB, though I feel this was probably related to CPR and urgent entering of the chest. Despite maximal efforts by all involved, we were unable to obtain meaningful return of cardiac activity, and given the length of time since initiation of CPR without meaningful vital signs, she was subsequently pronounced . I greatly appreciate the heroic efforts of Dr. eBnitez, ICU staff and all support personnel.
[2019-10-25 14:57] LABS: Blood Gas Sample Site ARTLINE
[2019-10-25 14:58] LABS: Blood Gas Sample Site ARTLINE
[2019-10-25 14:59] LABS: Blood Gas Sample Site ARTLINE
[2019-10-25 15:00] LABS: Blood Gas Sample Site ARTLINE
== END 2019-10-23 09:50 | disposition expired | DRG 235 ==
LOC: ER 22:55 → ICU 10-16 02:39
PROVIDERS: Physician Assistant; Thoracic Surgery (Cardiothoracic Vascular Surgery); Admitting Provider Family Medicine; Emergency Provider Emergency Medicine; PCP Chiropractor Orthopedic; Visit Provider Family Medicine
PROC: 021109W Bypass Coronary Artery, Two Arteries from Aorta with Autologous Venous Tissue, Open Approach (ICD-10-PCS; principal; 2019-10-20 07:00)
DX: I21.4 Non-ST elevation (NSTEMI) myocardial infarction (principal); I50.43 Acute on chronic combined systolic (congestive) and diastolic (congestive) heart failure; T82.838A Hemorrhage due to vascular prosthetic devices, implants and grafts, initial encounter; I31.4 Cardiac tamponade; Y83.2 Surgical operation with anastomosis, bypass or graft as the cause of abnormal reaction of the patient, or of later complication, without mention of misadventure at the time of the procedure; E11.9 Type 2 diabetes mellitus without complications; J44.9 Chronic obstructive pulmonary disease, unspecified; E78.5 Hyperlipidemia, unspecified; I25.10 Atherosclerotic heart disease of native coronary artery without angina pectoris; I25.5 Ischemic cardiomyopathy; F17.210 Nicotine dependence, cigarettes, uncomplicated; F41.9 Anxiety disorder, unspecified; Z86.73 Personal history of transient ischemic attack (TIA), and cerebral infarction without residual deficits; E03.9 Hypothyroidism, unspecified; M06.9 Rheumatoid arthritis, unspecified; I11.0 Hypertensive heart disease with heart failure; Z90.710 Acquired absence of both cervix and uterus; Z79.4 Long term (current) use of insulin; Z79.82 Long term (current) use of aspirin; E66.01 Morbid (severe) obesity due to excess calories; Z68.35 Body mass index [BMI] 35.0-35.9, adult
CPT/HCPCS: 12345; 36415; 36416; 36430; 36592; 71045; 80048; 80051; 80053; 80061; 80076; 81001; 82550; 82803; 82810; 82962; 83735; 83880; 83986; 84100; 84439; 84443; 84484; 85025; 85347; 85610; 85730; 86850; 86900; 87077; 87086; 87186; 93005; 94002; 94003; 94010; 94640; 94799; 96372; 96375; 97110; 97161; 97167; 97530; 97535; 99283; A4570; C9113; J0171; J0330; J0697; J1250; J1644; J1650; J1815; J1940; J2001; J2150; J2250; J2270; J2370; J2405; J2440; J2720; J3010; J3370; J3480; J3490; J7030; J7050; P9016; P9017; P9035; P9047